=== PATIENT | male | born 1955 | race Caucasian/White ===

== ENCOUNTER 2021-10-01 12:48 | Outpatient (CLI) | payer MEDICARE, MEDICAID, SELFPAY | END 2021-10-01 23:59 | disposition home or self-care (01) | PROVIDERS: PCP Family Medicine; Referring Provider Surgery; Visit Provider Surgery | DX: Z01.818 Encounter for other preprocedural examination (principal); N18.6 End stage renal disease | CPT/HCPCS: 93985 ==

== ENCOUNTER 2021-11-28 12:14 | Emergency (ER) | payer MEDICARE, SELFPAY ==
[2021-11-28 12:15] VITALS: BP 88/72; PULSE 137; RESP 18; TEMP 36.1; O2SAT 98; BMI 26.9
[2021-11-28 12:42] VITALS: BP 96/82; PULSE 133; RESP 24; O2SAT 98
[2021-11-28 12:45] VITALS: BP 108/83; PULSE 133; RESP 18; O2SAT 99
--- NOTE | 2021-11-28 13:02 | RAD_ITS ---
STUDY: X-RAY CHEST REASON FOR EXAM: Male, 66 years old. Chest pain TECHNIQUE: Single AP portable view of the chest. COMPARISON: None. FINDINGS: A right-sided double-lumen catheter is seen with the tip in the right atrium. EKG electrodes are seen. Minimal increased markings at the right lung base suggestive of linear atelectasis and/or scarring. There is no demonstrated pleural abnormality. Normal size heart. Normal mediastinum and didier. Normal visualized pulmonary arteries. There is atherosclerotic tortuosity of the aortic arch and descending thoracic aorta. Normal visualized thoracic spine. Normal visualized ribs, clavicles, and shoulders. There is no demonstrated abnormality of the visualized soft tissue structures of the upper abdomen. RAD/Chest 1 View (Portable) IMPRESSION: Minimal increased markings at the right lung base suggestive of either linear atelectasis and/or scarring. Electronically Signed: Karlo Marley MD at 13:36 EDT ,
[2021-11-28 13:07] LABS: Absolute Lymphocyte Count 2.12 X10^3/uL (0.83-4.51); Absolute Neutrophil Count 7.6 X10^3/uL (2.0-7.7); Basophil# 0.04 X10^3/uL; Basophil% 0.4 % (0-1); Eosinophil# 0.06 X10^3/uL; Eosinophils% 0.6 % (0-5); Hematocrit 39.6 % (40-54); Hemoglobin 12.3 g/dL (13.0-16.5); Lymphocyte # 2.12 X10^3/ul (0.83-4.51); Lymphocyte % 19.8 % (19-41); Mean Corp Hgb Conc 31.1 g/dL (32-36); Mean Corpuscular Hgb 32.2 pg (27.0-32.0); Mean Corpuscular Volume 103.7 fL (80-94); Mean Platelet Vol. 10.3 fl (6.2-12.0); Monocyte# 0.88 X10^3/uL; Monocyte% 8.2 % (0-10); NRBC Flagged by Analyzer 0 % (0-5); Neutrophil % 70.7 % (47-70); Platelet Count 343 K/mm3 (150-450); RBC Distribution Width CV 16.7 % (11.6-14.6); Red Blood Count 3.82 M/mm3 (4.6-6.2); White Blood Count 10.7 K/mm3 (4.4-11.0)
[2021-11-28 13:30] VITALS: BP 99/80; PULSE 134; RESP 17; O2SAT 96
[2021-11-28 13:35] LABS: Anion Gap 6 (5-15); BUN 36 mg/dL (7-18); BUN/Creat Ratio 8.1 RATIO (10-20); Calcium,Total 9.4 mg/dL (8.5-10.1); Chloride 102 mmol/L (98-107); Creatinine, Serum 4.46 mg/dL (0.70-1.30); EST Glomerular Filtration Rate 14 mL/min (>60); Est Glom Filt Rate - Afr Amer 17 mL/min (>60); Estimated Creatinine Clearance 17.35 ml/min; Glucose 110 mg/dL (74-106); Sodium Level 139 mmol/L (136-145); Troponin-I HS (w/2H Reflex) 13 pg/mL (3.0-78.0)
[2021-11-28 14:15] VITALS: BP 113/85; PULSE 133; RESP 20; O2SAT 96
[2021-11-28 15:04] LABS: Reflex Troponin-HS? (from REC) Y
--- NOTE | 2021-11-28 15:22 | EDS_ITS ---
HPI History of Present Illness Chief Complaint: General Illness Narrative Narrative: Patient presenting with tachycardia. He does not have any symptoms. He states maybe his heart racing a little bit. He denies chest pain or shortness of breath. No fever or chills. Patient has been doing dialysis. And has not missed any. He was sent here because his heart rate is been fast for weeks. He has a history of a flutter in the past. He is anticoagulated on Xarelto and is on Eliquis and aspirin daily. 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 End stage renal disease Essential hypertension History of renal dialysis History of renal disease Hyperlipidemia Hypertension Sensory disorder Smoker Thromboembolism Walker as ambulation aid Home Medications aspirin 81 mg tablet,delayed release (Adult Aspirin Regimen) 81 mg PO DAILY 10/18/21 [History Last Taken 11/25/21] calcium acetate 667 mg tablet 667 mg PO ONCE 10/18/21 [History Last Taken Unknown] lisinopril 30 mg tablet 30 mg PO DAILY 10/18/21 [History Last Taken 11/28/21] pantoprazole 40 mg tablet,delayed release 40 mg PO DAILY 10/18/21 [History Last Taken 11/28/21] clopidogrel 75 mg tablet 75 mg PO DAILY 11/06/21 [History Last Taken 11/25/21] rivaroxaban 10 mg tablet (Xarelto) 10 mg PO DAILY 11/06/21 [History Last Taken 11/25/21] atorvastatin 20 mg tablet 20 mg PO DAILY 11/20/21 [History Last Taken Unknown] metoprolol succinate 25 mg tablet,extended release 24 hr 25 mg PO DAILY 11/20/21 [History Last Taken 11/28/21] amiodarone 200 mg tablet 200 mg PO DAILY #30 tabs 11/28/21 [Rx Last Taken U nknown] Allergy/AdvReac Type Severity Reaction Status Date / Time No Known Allergies Allergy Verified 11/28/21 12:15 Social History (Updated 10/18/21 @ 09:18 by Ronel Gong) Smoking Status: Current every day smoker tobacco type: cigarettes alcohol intake: former substance use type: does not use ROS ROS ED Constitutional Constitutional ED: Denies chills or fever(s) Eyes Eyes: Denies change in vision or diplopia ENT ENT ED: Denies rhinorrhea or sore throat Cardiovascular Cardiovascular: Reports racing heartbeat; Denies chest pain Respiratory/Chest Respiratory/Chest: Denies cough or dyspnea Gastrointestinal Gastrointestinal: Denies abdominal pain or constipation Genitourinary Genitourinary ED: Denies dysuria or hematuria Musculoskeletal Musculoskeletal: Denies arthralgias or back pain Integumentary Denies abscess or Abrasions Neurologic Neurologic: Denies headache(s) or paresthesias Psychiatric Psychiatric: Denies anxiety or depression EXAM Physical Exam Const Vital Signs: 11/28/21 12:15 11/28/21 12:42 11/28/21 12:42 Temperature 97 F L Temperature Source Temporal Pulse Rate 137 H 133 H Respiratory Rate 18 24 H Respiratory Effort Normal Non-Labored Respiratory Pattern Normal Blood Pressure 88/72 L 96/82 H Blood Pressure Mean 77 86 Pulse Ox 98 98 Oxygen Delivery Method Room Air Room Air 11/28/21 12:45 11/28/21 13:09 11/28/21 13:30 Temperature Temperature Source Pulse Rate 133 H 134 H Respiratory Rate 18 17 Respiratory Effort Respiratory Pattern Blood Pressure 108/83 H 99/80 Blood Pressure Mean 91 86 Pulse Ox 99 96 Oxygen Delivery Method Room Air Room Air Room Air 11/28/21 14:15 Temperature Temperature Source Pulse Rate 133 H Respiratory Rate 20 H Respiratory Effort Respiratory Pattern Blood Pressure 113/85 H Blood Pressure Mean 94 Pulse Ox 96 Oxygen Delivery Method Positive well nourished General Appearance ED: NAD; Negative for pallor HEENT Reports moist mucous membranes Eyes PERRL and EOMs intact bilaterally General Eye ED: Negative for pale conjunctiva or scleral icterus Chest Wall inspection of chest normal Resp normal respiratory effort and clear to auscultation bilaterally Auscultation: Negative for rales, rhonchi or wheezes Cardio regular rhythm Rate: tachycardic GI normal to inspection, nondistended, normoactive bowel sounds Extremity normal to inspection Neuro oriented x3 and CN's II-XII intact bilaterally Sensorium / Orientation: alert Psych mental status grossly normal Skin no rashes or lesions noted and no wounds General Skin Exam: Negative for jaundice or pallor MDM MDM MDM Narrative Medical decision making narrative: Patient sent to the ED for tachycardia which he has had for weeks now. He has a history of a flutter as well. Patient is anticoagulated on Xarelto and also takes 81 mg of aspirin daily and 75 mg of Plavix. He is not having any chest pain. He does not feel short of breath. He does not feel ill. Patient has been going to dialysis regularly. EKG obtained today shows a flutter at a ventricular rate of 133 bpm. This is similar to his prehospital EKG performed by medical history Dr. Lam who sent him here for this. His blood pressure was initially read as 88/72 but on reevaluation is 113/85. He is not having any symptoms with low blood pressure. CBC was obtained and his white blood cell count is 10.7, hemoglobin stable at 12.3. Platelets are normal at 343. Creatinine is at baseline for end-stage renal disease on dialysis. His potassium was a little bit high at 6.0. I spoke with Dr. Cruz who is on-call for cardiology. He recommended giving him older own IV and then when he slows down to give him 200 mg of amiodarone daily. The patient was given 150 mg of amiodarone IV and then his IV infiltrated. He is refusing another IV to be placed. He states its been like this for weeks and he does not want to stay here any longer. His heart rate is still around 130. After a long discussion with him he still refuses. I will give prescription for amiodarone. I recommended that he come back if he has any new or worsening symptoms. Impression: 1. A flutter 2. Hypotension Lab Data Attestation: I reviewed the patient's lab results. Labs: Laboratory Results - last 24 hr 11/28/21 11/28/21 12:30 12:30 WBC 10.7 RBC 3.82 L Hgb 12.3 L Hct 39.6 L MCV 103.7 H MCH 32.2 H MCHC 31.1 L RDW Std Deviation 62.0 H RDW Coeff of Mere 16.7 H Plt Count 343 MPV 10.3 Immature Gran % (Auto) 0.300 Neut % (Auto) 70.7 H Lymph % (Auto) 19.8 Rincon % (Auto) 8.2 Eos % (Auto) 0.6 Baso % (Auto) 0.4 Absolute Neuts (auto) 7.6 Absolute Lymphs (auto) 2.12 Nucleated RBC % 0 Sodium 139 Potassium 6.0 H* Chloride 102 Carbon Dioxide 31.0 Anion Gap 6 BUN 36 H Creatinine 4.46 H Estim Creat Clear Calc 17.35 Est GFR (MDRD) Af Amer 17 L Est GFR (MDRD) Non-Af 14 L BUN/Creatinine Ratio 8.1 L Glucose 110 H Calcium 9.4 Troponin I High Sens 13 Radiography Diagnostic Testing: Clinical Impression(s) from Imaging Studies Chest X-Ray 11/28/21 13:02 IMPRESSION: Minimal increased markings at the right lung base suggestive of either linear atelectasis and/or scarring. Electronically Signed: Karlo Marley MD at 13:36 EDT , Discharge Plan Triage Chief Complaint: General Illness ED Provider: J Carlos Rivera Dx/Rx/DC Orders Instructions: ED Atrial Flutter Prescriptions: New amiodarone 200 mg tablet 200 mg PO DAILY Qty: 30 0RF No Action calcium acetate 667 mg tablet 667 mg PO ONCE lisinopril 30 mg tablet 30 mg PO DAILY aspirin [Adult Aspirin Regimen] 81 mg tablet,delayed release (DR/EC) 81 mg PO DAILY pantoprazole 40 mg tablet,delayed release (DR/EC) 40 mg PO DAILY clopidogrel 75 mg tablet 75 mg PO DAILY Label Comments: TAKE 1 TABLET BY MOUTH EVERY DAY Xarelto 10 mg tablet 10 mg PO DAILY Label Comments: TAKE 1 TABLET BY MOUTH EVERY DAY atorvastatin 20 mg tablet 20 mg PO DAILY Label Comments: TAKE 1 TABLET BY MOUTH EVERY DAY metoprolol succinate 25 mg tablet extended release 24 hr 25 mg PO DAILY Label Comments: Take 1 tablet by mouth once a day Primary Care Provider: Ramona Khan Referrals: Román Dick MD [Med Staff - Active Staff] - As soon as possible Ramona Khan DO [Primary Care Provider] - Disposition Disposition: Home, Self Care
[2021-11-28 15:36] VITALS: BP 111/79; PULSE 128; RESP 18; O2SAT 98
== END 2021-11-28 15:37 | disposition home or self-care (01) ==
PROVIDERS: Emergency Provider Student in an Organized Health Care Education/Training Program; PCP Family Medicine; Visit Provider Student in an Organized Health Care Education/Training Program
DX: I48.92 Unspecified atrial flutter (principal); Z99.2 Dependence on renal dialysis; J44.9 Chronic obstructive pulmonary disease, unspecified; E13.22 Other specified diabetes mellitus with diabetic chronic kidney disease; N18.6 End stage renal disease; I12.0 Hypertensive chronic kidney disease with stage 5 chronic kidney disease or end stage renal disease; I95.9 Hypotension, unspecified; E78.5 Hyperlipidemia, unspecified; F17.210 Nicotine dependence, cigarettes, uncomplicated; Z79.01 Long term (current) use of anticoagulants; Z79.02 Long term (current) use of antithrombotics/antiplatelets; Z79.82 Long term (current) use of aspirin; Z79.899 Other long term (current) drug therapy; Z86.73 Personal history of transient ischemic attack (TIA), and cerebral infarction without residual deficits
CPT/HCPCS: 96365; 71045; 80048; 82962; 84484; 85025; 85027; 93005; J7040; A4216

== ENCOUNTER → 2021-11-28 | Outpatient (CLI) | payer MEDICARE, MEDICAID, SELFPAY ==
--- NOTE | 2021-11-26 10:34 | EKG12_ITS ---
Test Reason : PRE OP Blood Pressure : / mmHG Vent. Rate : 128 BPM Atrial Rate : 128 BPM P-R Int : 146 ms QRS Dur : 180 ms QT Int : 308 ms P-R-T Axes : 000 019 091 degrees QTc Int : 449 ms Atrial Flutter Abnormal ECG Confirmed by UMU BLANCHARD, JOHN ([id number]), assistant editor JOHN RIDDLE ([id number]) on 11/27/2021 9:30:41 AM Referred By: Sachin Lam Confirmed By:JOHN SANZ MD
[2021-11-28 11:11] VITALS: BP 117/39; PULSE 120; RESP 18; TEMP 36.7; O2SAT 99; BMI 26.7
[2021-11-28 11:35] LABS: Hematocrit 40.1 % (40-54); Hemoglobin 12.3 g/dL (13.0-16.5); Mean Corp Hgb Conc 30.7 g/dL (32-36); Mean Corpuscular Hgb 31.7 pg (27.0-32.0); Mean Corpuscular Volume 103.4 fL (80-94); Mean Platelet Vol. 10.3 fl (6.2-12.0); Platelet Count 380 K/mm3 (150-450); RBC Distribution Width CV 16.6 % (11.6-14.6); RBC Distribution Width SD 61.1 fl (35.1-43.9); Red Blood Count 3.88 M/mm3 (4.6-6.2); White Blood Count 11.7 K/mm3 (4.4-11.0)
[2021-11-28 11:46] LABS: Anion Gap 8 (5-15); BUN 35 mg/dL (7-18); BUN/Creat Ratio 7.7 RATIO (10-20); Calcium,Total 9.7 mg/dL (8.5-10.1); Chloride 101 mmol/L (98-107); Creatinine, Serum 4.52 mg/dL (0.70-1.30); EST Glomerular Filtration Rate 14 mL/min (>60); Est Glom Filt Rate - Afr Amer 17 mL/min (>60); Estimated Creatinine Clearance 17.12 ml/min; Glucose 129 mg/dL (74-106); Sodium Level 139 mmol/L (136-145)
[2021-11-28 11:55] LABS: Bedside Glucose 126 mg/dL (74-106)
== END | disposition home or self-care (01) ==
LOC: AC 11-29 06:30 → PAT 12-10 12:40
PROVIDERS: PCP Family Medicine; Referring Provider Surgery; Visit Provider Surgery
DX: Z01.818 Encounter for other preprocedural examination (principal); Z99.2 Dependence on renal dialysis; J44.9 Chronic obstructive pulmonary disease, unspecified; E13.22 Other specified diabetes mellitus with diabetic chronic kidney disease; N18.6 End stage renal disease; I12.0 Hypertensive chronic kidney disease with stage 5 chronic kidney disease or end stage renal disease; I48.92 Unspecified atrial flutter; I95.9 Hypotension, unspecified; E78.5 Hyperlipidemia, unspecified; F17.210 Nicotine dependence, cigarettes, uncomplicated; Z79.01 Long term (current) use of anticoagulants; Z79.02 Long term (current) use of antithrombotics/antiplatelets; Z79.82 Long term (current) use of aspirin; Z79.899 Other long term (current) drug therapy; Z86.73 Personal history of transient ischemic attack (TIA), and cerebral infarction without residual deficits
CPT/HCPCS: 71045; 80048; 82962; 84484; 85025; 85027; 93005; 96365; 99284; J7040; A4216; J2405

== ENCOUNTER → 2021-12-11 | Outpatient (CLI) | payer MEDICARE, SELFPAY ==
[2021-12-11 13:00] LABS: Potassium 6.1 mmol/L (3.5-5.1)
== END | disposition home or self-care (01) ==
LOC: LABSPEC 12:32
PROVIDERS: PCP Family Medicine; Referring Provider Internal Medicine Nephrology
DX: E87.5 Hyperkalemia (principal)
CPT/HCPCS: 84132

== ENCOUNTER → 2022-01-28 | Outpatient (CLI) | payer MEDICARE, MEDICAID, SELFPAY ==
--- NOTE | 2022-01-28 08:03 | ECHOCS_ITS ---
Reason For Study: Afib/Flutter Procedure This was a 2D Doppler, Color Flow transthoracic echocardiogram. The study was technically difficult. Contrast injection was performed. Exam performed in department. Left Ventricle Normal size and thickness. Mild to moderate segmental systolic dysfunction (see wall motion). The left ventricular ejection fraction is 45 %. Diastolic function is indeterminate. Severe anterior septal, inferior hypokinesis. Right Ventricle Normal right ventricle. Atria The left atrium is moderately enlarged. Normal right atrium. Mitral Valve The mitral valve is structurally normal. No prolapse or stenosis seen. Tricuspid Valve Normal tricuspid valve. Aortic Valve Mild aortic stenosis. Pulmonic Valve The pulmonic valve is not well visualized. Great Vessels Normal sized aortic root. Pericardium/Pleural No pericardial effusion. Medication 20 gauge I.V. with prn adaptor inserted into left arm. Diluted definity 3ml given slow IV push to enhance endocardial definition. Performed a rapid injection of agitated mix of 9 cc saline and 1cc air to assess for atrial septal defect. MMode/2D Measurements & Calculations LVIDd: 4.6 cm IVSd: 1.4 cm LVOT diam: 2.0 cm LVIDs: 3.1 cm LVPWd: 1.6 cm RVDd: 4.3 cm FS: 31.5 % LVOT area: 3.1 cm2 Ao root diam: 3.6 cm LAV(MOD-bp): 97.2 ml LA A4 area: 26.1 cm2 LAV(MOD-bp) Indexed: 46.4 ml/m2 LAV(MOD-sp2): 101.1 ml LAV(MOD-sp4): 78.2 ml RA A4 area: 17.6 cm2 Time Measurements MV dec time: 0.11 sec Doppler Measurements & Calculations MV E max azael: 34.1 cm/sec Lat Peak E' Azael: 3.4 cm/sec Med Peak E' Azael: 4.8 cm/sec MV A max azael: 132.6 cm/sec E/E' lat: 9.9 E/E' med: 7.0 MV E/A: 0.26 MV V2 max: 135.2 cm/sec MV P1/2t max azael: 45.9 cm/sec Ao V2 max: 239.2 cm/sec MV max P.3 mmHg MV P1/2t: 64.7 msec Ao max P.9 mmHg MV V2 mean: 67.1 cm/sec MV dec slope: 207.7 cm/sec2 Ao V2 mean: 156.7 cm/sec MV mean P.4 mmHg Ao mean P.6 mmHg MV V2 VTI: 19.3 cm MVA(P1/2t): 3.4 cm2 Ao V2 VTI: 42.9 cm MVA(VTI): 2.6 cm2 AV (velocity ratio): 0.39 ASHLEY(I,D): 1.2 cm2 ASHLEY(V,D): 1.2 cm2 LV V1 max: 90.9 cm/sec SV(LVOT): 51.1 ml PA V2 max: 89.2 cm/sec LV V1 max P.3 mmHg LV V1 mean P.6 mmHg LV V1 mean: 58.9 cm/sec LV V1 VTI: 16.6 cm ECHO/Echo Complete W/ Contrast Interpretation Summary Mild to moderate segmental systolic dysfunction (see wall motion). The left ventricular ejection fraction is 45 %. Diastolic function is indeterminate. Severe anterior septal, inferior hypokinesis. The left atrium is moderately enlarged. Mild aortic stenosis. Ordering Physician: Silvia Cruz Referring Physician: Ramona Khan Performed By: Solis Jeff RCS
--- NOTE | 2022-01-30 10:00 | STRESSREP_ITS ---
Stress Test Report Date: 01/30/2022 Procedure: Pharmacologic stress nuclear imaging study Indications: Arrhythmia Consent: Per the patient Procedure: The patient underwent pharmacologic (Regadenoson 0.4mg ) evaluation with a peak heart rate of 126 beats per minute (81%predicted maximal heart rate) and a peak blood pressure of 120/81 mmHg. The baseline ECG demonstrated atrial flutter. The peak pharmacologic ECG demonstrated no ischemic change. [There was no complaint of chest discomfort during pharmacologic infusion or recovery]. The patient was injected with 14.0 millicuries of technetium 99m Cardiolite and subsequently rest SPECT Cardiolite nuclear imaging was obtained in the horizontal long, vertical long, and short axis views. The patient underwent pharmacologic (Regadenoson) evaluation. The patient was injected with 44 millicuries of technetium 99m Cardiolite and subsequently stress SPECT Cardiolite nuclear imaging was obtained in the horizontal long, vertical long, and short axis views. A gated Cardiolite study at peak stress was obtained. The examination was stopped secondary to completion of protocol. Rest and stress SPECT Cardiolite nuclear imaging status post realignment, normalization, and attenuation correction demonstrate moderately reduced perfusion at rest. This slightly worsens post Lexiscan infusion. Suggestive of previous nontransmural infarct with kelvin-infarct ischemia.The reported LVEF is 46%. Impression: 1. Pharmacologic (Regadenoson) evaluation 2. Peak pharmacologic ECG with []. 3. Baseline atrial flutter. Nondiagnostic post Lexiscan EKG secondary to baseline abnormalities.. 5. Rest and stress SPECT Cardiolite nuclear imaging shows possible nontransmural infarct of the inferior wall. Mild kelvin-infarct ischemia noted. Possible lateral ischemia.. 6. The gated Cardiolite study reports an LVEF of 46%. This note was generated with [employer] software. It may contain incorrect words, spelling, and punctuation that were not noted in checking the note before signing.
== END | disposition home or self-care (01) ==
PROVIDERS: PCP Family Medicine; Referring Provider Internal Medicine Cardiovascular Disease; Visit Provider Internal Medicine Cardiovascular Disease
DX: I48.92 Unspecified atrial flutter (principal); I48.91 Unspecified atrial fibrillation; R94.31 Abnormal electrocardiogram [ECG] [EKG]
CPT/HCPCS: 78452; 93017; 93306; A9500; Q9957; A4216; C8929; J2785

== ENCOUNTER → 2022-02-12 | Outpatient (CLI) | payer MEDICARE, MEDICAID, SELFPAY ==
[2022-02-12 12:39] LABS: Hemoglobin 7.9 g/dL (13.0-16.5)
[2022-02-12 12:50] LABS: Potassium 6.6 mmol/L (3.5-5.1)
== END | disposition home or self-care (01) ==
LOC: LABSPEC 12:20
PROVIDERS: PCP Family Medicine; Visit Provider Internal Medicine
DX: N18.6 End stage renal disease (principal)
CPT/HCPCS: 84132; 85018

== ENCOUNTER 2022-03-20 09:05 | Day surgery (SDC) | payer MEDICARE, MEDICAID, SELFPAY ==
--- NOTE | 2022-03-13 14:09 | EKG12_ITS ---
Test Reason : PREOP Blood Pressure : / mmHG Vent. Rate : 117 BPM Atrial Rate : 234 BPM P-R Int : 000 ms QRS Dur : 086 ms QT Int : 348 ms P-R-T Axes : 266 016 174 degrees QTc Int : [address] & T wave abnormality, consider inferolateral ischemia Abnormal ECG Confirmed by IDANIA BLANCHARD, HARDEEP ([id number]), newspaper managing editor JOHN RIDDLE ([id number]) on 03/17/2022 9:50:20 AM Referred By: Sachin Lam Confirmed By:JESS EMERSON MD
[2022-03-13 14:51] LABS: Hematocrit 32.7 % (40-54); Hemoglobin 9.9 g/dL (13.0-16.5); Mean Corp Hgb Conc 30.3 g/dL (32-36); Mean Corpuscular Hgb 31.7 pg (27.0-32.0); Mean Corpuscular Volume 104.8 fL (80-94); Mean Platelet Vol. 9.6 fl (6.2-12.0); Platelet Count 372 K/mm3 (150-450); RBC Distribution Width CV 15.9 % (11.6-14.6); RBC Distribution Width SD 59.6 fl (35.1-43.9); Red Blood Count 3.12 M/mm3 (4.6-6.2); White Blood Count 9.8 K/mm3 (4.4-11.0)
[2022-03-13 15:25] LABS: Anion Gap 7 (5-15); BUN 36 mg/dL (7-18); BUN/Creat Ratio 8.5 RATIO (10-20); Calcium,Total 8.2 mg/dL (8.5-10.1); Chloride 97 mmol/L (98-107); Creatinine, Serum 4.25 mg/dL (0.70-1.30); EST Glomerular Filtration Rate 15 mL/min (>60); Est Glom Filt Rate - Afr Amer 18 mL/min (>60); Glucose 104 mg/dL (74-106); Potassium 5.2 mmol/L (3.5-5.1); Sodium Level 136 mmol/L (136-145)
[2022-03-20 09:46] VITALS: BP 124/87; PULSE 118; RESP 16; TEMP 36.8; O2SAT 94; BMI 26.4
[2022-03-20] MEDS: 0.9% Normal Saline 1,000 ML 15 ML IV (10:08)
--- NOTE | 2022-03-20 10:39 | HP.PCM_ITS ---
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 Required: No Is patient in pain?: No Allergies No Known Allergies Allergy (Verified 03/05/22 10:08) Medications aspirin 81 mg tablet,delayed release (Adult Aspirin Regimen) 81 mg PO DAILY 10/18/21 [History Confirmed 03/05/22] pantoprazole 40 mg tablet,delayed release 40 mg PO DAILY 10/18/21 [History Confirmed 03/05/22] rivaroxaban 10 mg tablet (Xarelto) 10 mg PO DAILY 11/06/21 [History Confirmed 03/05/22] atorvastatin 20 mg tablet 20 mg PO DAILY 11/20/21 [History Confirmed 03/05/22] calcium acetate 667 mg tablet 1,334 mg PO TID 12/04/21 [History Confirmed 03/05/22] diltiazem HCl 120 mg capsule,extended release 24 hr 120 mg PO BID #180 caps 12/19/21 [Rx Confirmed 03/05/22] clopidogrel 75 mg tablet 75 mg PO DAILY 01/30/22 [History Confirmed 03/05/22] potassium chloride 20 mEq tablet,extended release 20 meq PO BID 01/30/22 [History Confirmed 03/05/22] metoprolol tartrate 100 mg tablet 100 mg PO BID #180 tabs 02/18/22 [Rx Confirmed 03/05/22] PFSH Medical History?(Updated 03/05/22 @ 10:06 by Sylvia Alcantar) Atrial flutter Bite from insect COPD (chronic obstructive pulmonary disease) CVA (cerebral vascular accident) Diabetes 1.5, 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 Smoking Status:? Current every day smoker tobacco type: cigarettes alcohol intake:? former substance use type:? does not use caffeine:? No HPI HPI Surgical H&P: Yes HPI: Patient is a 66 y/o M I am following for an update history and physical for an elective arteriovenous fistula creation. Patient notes he has had his peritoneal dialysis catheters removed approximately [address] Mccoy at [facility]. Patient tolerated the procedure well. Patient is currently on dialysis via tunneled dialysis catheters on M,W and F. Patient denies any recent illnesses. Patient denies any complications or side effects from anesthesia. Patient's previous history per Dr. Lam: JOHN SAHU, is a 65 M who presents to the office today for surgical consultation regarding creation of a arteriovenous fistula and removal of peritoneal dialysis catheters.? The patient was initially referred on August 19, 2021.? He had vein mapping scheduled on August 23, 2021 for which she failed to appear.? He was scheduled to see me on October 03, 2021 and failed to show.? The patient is referred by Dr. Montserrat Rios and written, my surgical consult recommendations will return to her.? It appears that the patient was hospitalized at [facility] July 18, 2021.? Had emphysematous cholecystitis and was on peritoneal dialysis.? Had a percutaneous cholecystostomy tube placed at that time and also had a right internal jugular tunneled dialysis catheter placed.? There is additional comment that on July 21, 2021 at the same hospital because of atrial flutter the patient had DC cardioversion performed. ?On October 01, 2021 at the [facility] the patient had bilateral upper extremity vein mapping.? Bilateral forearm cephalic veins are small.? Left upper arm cephalic vein appears to be slightly larger than the right upper arm cephalic vein.? Bilateral upper arm basilic veins appear to be adequate The patient appears in a wheelchair today.? He has multiple areas of skin excoriation bilateral upper arms and chest.? He has a tunneled right IJ catheter with the dressing nearly ripped off even though its only been there for a day and a half from his previous dialysis.? His peritoneal dialysis catheter tubing is hanging down to the ground.? He has a heavy odor of tobacco From his cholecystostomy tube apparently that got pulled out in his wheelchair.? He states he is no additional appointments at [facility] for his gallbladder issue. ROS General General: No weight change, appetite, fatigue, colon cancer, breast cancer or weakness HEENT HEENT: No difficulty swallowing, eye injury, eye surgery, swollen glands or hoarseness Endo Endocrine: No thyroid disease, diabetes mellitus, thyroid cancer, Hair loss, heat intolerance or cold intolerance Skin Skin: No rash or changing moles Breast Breast: No left breast lump, right breast lump, nipple discharge, breast pain, abnormal mammogram, abnormal US or breast enlargement Musc Musculoskeletal: No back problems, arthritis, rheumatoid arthritis, gout or joint pain Cardio Cardiovascular: Yes high blood pressure; No murmur, pacemaker, heart disease, atrial fibrillation, heart attack, heart stent, palpitations, shortness of breat with exertion or chest pain Psych Psychiatric: No depression, anxiety or hearing voices Resp Respiratory: Yes shortness of breath, No sleep apnea, Yes cough, Yes COPD, No asthma, No emphysema and No wheezing Gastro Gastrointestinal: No abdominal pain, No nausea or vomiting, No diarrhea, No constipation, No blood in stool, No acid reflux, Yes hemorrhoids, No ulcers, No gallbladder problem and No black,tarry stools Aravind Hematologic: Yes blood thinners, No blood disorders, No bleeding, No anemia and No blood clots Additional Details: Eliquis Neuro Neurologic: No system reviewed and no additional complaints, except as documented, No as per HPI, No abnormal gait, No abnormal hearing, No abnormal movements, No abnormal speech, No behavioral changes, No burning sensations, No confusion, No convulsions, No disequilibrium, No dizziness, No localized weakness, No frequent falls, No headache(s), No lack of coordination, No loss of vision, No memory loss, No numbness, No other visual disturbances, No radicular pain, No restless legs, No sensory deficit, No syncope, No tingling, No tremor(s), No weakness and No other Exam Const General: cooperative, comfortable and no acute distress [facility] Head: normal to inspection Eyes General: appearance normal, both eyes and all related structures Neck Neck: normal visual inspection Neck mass: No Chest Other: Right IJ port in place Resp Effort & Inspection: normal respiratory effort Auscultation: wheezes Cardio Rate: regular rate Rhythm: regular rhythm GI Inspection: normal to inspection Palpation: soft Auscultation: normal bowel sounds Musc Cervical Spine: normal cervical lordosis Neuro General: no focal motor deficits and CN's II-XI intact bilaterally Assessment and Plan Assessment and Plan (1) End stage renal disease: ?Status:?Acute ?Plan: Dr. Lam will plan to perform a left upper extremity brachial to cephalic arteriovenous hemodialysis fistula creation. Procedure details, risks and benefits have been explained. Patient has had the opportunity to ask and have questions answered. Patient verbally understands and agrees with the plan. Patient will hold his Plavix for 3 days and Xarelto for 2 days It has become apparent that the patient got confused with his medications and took his Plavix yesterday. He complains of fleabites the left arm but that episode occurred 4 months ago. It appears that the wounds are secondary to self excoriation due to scratching due to pruritus related to his renal failure. Fortunately the left antecubital space is clean. He has had an opportunity to ask and have questions answered. We will pursue fistula creation secondary to the significant difficulty that we have had in scheduling and getting compliance from this patient. Sachin Lam M.D., F.A.C.S.
--- NOTE | 2022-03-20 10:40 | DCINST_ITS ---
Discharge Instructions Procedure Fistula Diet Discharge Diet: Renal Diet Activity Discharge Activity: May Not Drive (for 2-3 days or while taking narcotic pain medications.), May Shower and May Take a Tub Bath (in 5 days.) Lifting Restrictions: 5 pounds Keep extremity elevated above heart level: - (Keep arm elevated above the heart level for 3 days.) Dressing / Incision Call your doctor if your incision/area has: Continuous Slow Oozing, Sudden Increased Bleeding (apply pressure and call your doctor.), Increased Pain/ Swelling, Increased Redness and Foul Smelling Discharge Call your doctor if you observe: Fever of 101 or Higher Suture Line Care: Avoid Pulling/Pushing and Avoid Pinching/Bending Cleanse incision/area with: Keep Dressing Clean & Dry Additional Dressing/Incision Instructions:: Change or remove dressing in one day. May protect with a gauze bandaid. Follow Up Care Please Follow Up With: Sachin Lam MD When: Call [phone] to make an appointment for suture removal and follow up in 1 week. Test Results: Test results from this visit will be discussed in further detail at your follow- up appointment, if applicable. Discharge Plan Admission Attending Provider: Sachin Lam Primary Care Provider: Ramona Khan Discharge Orders/Prescriptions Prescriptions: No Action aspirin [Adult Aspirin Regimen] 81 mg tablet,delayed release (DR/EC) 81 mg PO DAILY pantoprazole 40 mg tablet,delayed release (DR/EC) 40 mg PO DAILY diltiazem HCl 120 mg capsule,extended release 24hr 120 mg PO BID Qty: 180 3RF potassium chloride 20 mEq tablet extended release 20 meq PO BID Label Comments: TAKE ONE TABLET BY MOUTH TWICE DAILY @ 9am-5pm (VIAL) clopidogrel 75 mg tablet 75 mg PO DAILY Label Comments: TAKE ONE TABLET BY MOUTH DAILY AT 9AM Xarelto 10 mg tablet 10 mg PO DAILY Label Comments: TAKE 1 TABLET BY MOUTH EVERY DAY metoprolol tartrate 100 mg tablet 100 mg PO BID Qty: 180 3RF Referrals / Follow Up: Ramona Khan DO [Primary Care Provider] - Disposition Disposition (needs filled in before D/C Order can be placed): Home, Self Care
[2022-03-20] MEDS: Cefazolin 2 GM in 0.9% Normal Saline 100 ML IV (11:45)
[2022-03-20] MEDS: Heparin Injection (Vial) 5,000 UNIT/ML VIAL 5000 UNIT (11:51)
[2022-03-20] MEDS: Bupivacaine Mpf 0.5% 30 ML VIAL (11:51)
[2022-03-20] MEDS: Lidocaine 1% (30 ml sdv) 30 ML Vial (11:51)
--- NOTE | 2022-03-20 12:59 | PCM.OPRPT ---
Report of Operation Date of Procedure: 03/20/22 Pre-Operative Diagnosis: Stage V chronic renal insufficiency Post-Operative Diagnosis: Same Surgery/Procedure Performed:: Left upper extremity brachial cephalic arteriovenous hemodialysis fistula creation Description of Surgical Findings:: Timeout informed consent was obtained. 66-year-old gentleman was taken to the operating placed upon the table initially underwent monitored anesthesia care but that was converted to general anesthesia with an LMA. Ancef 2 g were given intravenously. The left upper extremity was sterilely prepped and draped. 1% lidocaine 50-50 with 0.5% Marcaine was used as a local anesthetic and 22 cc was used. Ultrasound had been used to map the course of the left upper arm cephalic vein. Local was instilled. An oblique incision was made just proximal to the antecubital crease. Sharp and blunt dissection was used to dissect sac free the cephalic vein. It is notable that it seemed to be somewhat adherent likely from multiple percutaneous accesses. It was circumferentially dissected free and mobilized for several centimeters to allow for transposition to the brachial artery. Having fully mobilized it I then identified the brachial artery and got circumferential control. Where needed throughout this procedure hemostasis attained with hemoclips and electrocautery. The patient then received 8000 units of heparin intravenously. The vein was secured distally with a 3-0 Vicryl ligature. Peripheral vascular clamps were placed on the brachial artery and 11 blade was used to make an arteriotomy which was extended with Salazar scissors. A head venous to arterial anastomosis was created with a running 7-0 Prolene. Couple repair sutures of 7-0 Prolene was utilized. Hemostasis was intact. The hand was noted to be viable at the completion with Doppler signals. There was good pulse and thrill within the fistula. The wound was closed in layers with deep layers of interrupted 3-0 Vicryl and then a running subicular 4-0 Monocryl. Steri-Strips Telfa tape dressings applied. Sponge and instrument and needle counts were reported to the surgeon to be correct. Specimen none. Drains none. Blood loss minimal. The patient was taken to the recovery room in satisfactory addition without apparent complication. Sachin Lam M.D., F.A.C.S. Surgeon: Sachin Lam Type of Anesthesia: General Anesthesiologist: Jessie Jason
[2022-03-20 13:05] VITALS: BP 124/87; BP 134/85; PULSE 110; RESP 18; TEMP 36.3; O2SAT 96
[2022-03-20 13:15] VITALS: BP 104/80; BP 124/87; PULSE 111; RESP 18; O2SAT 98
[2022-03-20 13:30] VITALS: BP 108/87; BP 124/87; PULSE 110; RESP 18; O2SAT 93
[2022-03-20 13:46] VITALS: BP 124/87; BP 99/66; PULSE 111; RESP 18; TEMP 36.3; O2SAT 96
[2022-03-20 15:21] VITALS: BP 105/74; BP 124/87; PULSE 110; RESP 16; TEMP 36.6; O2SAT 94
== END 2022-03-20 15:33 | disposition home or self-care (01) ==
LOC: SDC 09:16 → AC 09:17
PROVIDERS: PCP Family Medicine; Referring Provider Surgery; Visit Provider Surgery
PROC: (CPT 36821; principal; 2022-03-20 11:25)
DX: I12.0 Hypertensive chronic kidney disease with stage 5 chronic kidney disease or end stage renal disease (principal); Z99.2 Dependence on renal dialysis; J44.9 Chronic obstructive pulmonary disease, unspecified; N18.6 End stage renal disease; I48.92 Unspecified atrial flutter; E78.5 Hyperlipidemia, unspecified; F17.210 Nicotine dependence, cigarettes, uncomplicated; Z79.01 Long term (current) use of anticoagulants; Z79.02 Long term (current) use of antithrombotics/antiplatelets; Z79.82 Long term (current) use of aspirin; Z86.73 Personal history of transient ischemic attack (TIA), and cerebral infarction without residual deficits
CPT/HCPCS: 36821; 01844; 36415; 80048; 85027; 93005; J7030; J2405

== ENCOUNTER 2022-04-02 12:26 | Inpatient (IN) | payer MEDICARE, MEDICAID, SELFPAY ==
[2022-04-02] VITALS (19 sets, daily range): BP systolic 0–124; BP diastolic 0–66; PULSE 55–92; RESP 15–24; TEMP 35.3–36.8; O2SAT 93–100; BMI 28.6; BMI 27.1
--- NOTE | 2022-04-02 12:41 | EKG12_ITS ---
Test Reason : LOW HR Blood Pressure : / mmHG Vent. Rate : 029 BPM Atrial Rate : 159 BPM P-R Int : 000 ms QRS Dur : 094 ms QT Int : 546 ms P-R-T Axes : 000 011 071 degrees QTc Int : 379 ms Atrial flutter with high grade AV block Confirmed by CHAZ BLANCHARD, ROMÁN ([id number]), newspaper copy editor JOHN RIDDLE ([id number]) on 04/04/2022 10:09:14 AM Referred By: Román iDck Confirmed By:ROMÁN DICK MD
--- NOTE | 2022-04-02 12:45 | EX.ED.DYSGE1 ---
HPI History of Present Illness Chief Complaint: Palpitations Informant: patient Narrative Narrative: 66-year-old male with significant medical history including end-stage renal disease on hemodialysis Thursday, Thursday and Thursday, atrial flutter on , cardiomyopathy, continued tobacco use and COPD. Patient was started on diltiazem 1/2 weeks ago. He states today he is feeling nauseous was seen as house and was sweating. When he went outside with the cold air he almost vomited. He went to dialysis for his normal dialysis session was found to be bradycardic with a heart rate in the 20s and fitzgerald so he was sent to ER via EMS. He had a full dialysis session on Thursday. He has no other complaints at this time. He denies feeling lightheaded, chest pain or any more shortness of breath than normal. Patient is a chronic cough from his COPD which is unchanged. No other complaint at this time [facility] Medical History (Updated 04/02/22 @ 17:[address] Rosana Faust, DO) Atrial flutter Cardiomyopathy Chronic anemia COPD (chronic obstructive pulmonary disease) CVA (cerebral vascular accident) Diabetes 1.5, managed as type 2 End stage renal disease Essential hypertension History of renal dialysis Hyperlipidemia Hypertension Sensory disorder Smoker Thromboembolism Walker as ambulation aid Home Medications aspirin 81 mg tablet,delayed release (Adult Aspirin Regimen) 81 mg PO DAILY 10/18/21 [History Last Taken 11/25/21] pantoprazole 40 mg tablet,delayed release 40 mg PO DAILY 10/18/21 [History Last Taken 03/20/22 05:30] rivaroxaban 10 mg tablet (Xarelto) 10 mg PO DAILY 11/06/21 [History Last Taken 03/16/22] diltiazem HCl 120 mg capsule,extended release 24 hr 120 mg PO BID #180 caps 12/19/21 [Rx Last Taken 03/20/22 05:30] clopidogrel 75 mg tablet 75 mg PO DAILY 01/30/22 [History Last Taken 03/19/22] potassium chloride 20 mEq tablet,extended release 20 meq PO BID 01/30/22 [History Last Taken Unknown] metoprolol tartrate 100 mg tablet 100 mg PO BID #180 tabs 02/18/22 [Rx Last Taken 03/20/22 05:30] atorvastatin 20 mg tablet 20 mg PO DAILY 02/08/23 [History Last Taken Unknown] Allergy/AdvReac Type Severity Reaction Status Date / Time No Known Allergies Allergy Verified 03/20/22 09:37 Family History Mother Heart disease Father Heart disease Surgical History History of ankle surgery Social History Smoking Status: Current every day smoker tobacco type: cigarettes alcohol intake: former substance use type: does not use caffeine: No ROS ROS ED Constitutional Constitutional ED: Reports sweats Cardiovascular Cardiovascular: Reports palpitations; Denies chest pain Respiratory/Chest Respiratory/Chest: Reports dyspnea Gastrointestinal Gastrointestinal: Reports nausea and vomiting Neurologic Neurologic: Reports weakness Hematologic/Lymphatic Hematologic/Lymphatic: Reports easy bleeding and easy bruising EXAM Physical Exam Const Vital Signs: 04/02/22 12:29 04/02/22 12:33 04/02/22 12:56 Temperature 95.5 F L Temperature Source Temporal Pulse Rate 55 L Respiratory Rate 24 H Blood Pressure 106/53 L Blood Pressure Mean 70 Pulse Ox 94 Oxygen Delivery Method Room Air Room Air Oxygen Flow Rate (L/min) 04/02/22 13:13 04/02/22 13:30 Temperature 97.2 F L Temperature Source Temporal Pulse Rate 60 Respiratory Rate 16 Blood Pressure 0/0 L Blood Pressure Mean Pulse Ox 93 Oxygen Delivery Method Room Air Non-Rebreather Oxygen Flow Rate (L/min) 15 Positive well nourished and well developed Constitutional Narrative: Chronically ill-appearing General Appearance ED: well developed HEENT Reports moist mucous membranes Eyes PERRL and EOMs intact bilaterally Neck supple Chest Wall inspection of chest normal Resp normal respiratory effort Cardio Rate: bradycardia GI normal to inspection, nondistended, normoactive bowel sounds Extremity General Extremety ED: Negative for edema General Extremity: Negative for edema Neuro oriented x3 Sensorium / Orientation: alert Motor Exam: general weakness Psych mental status grossly normal Skin Skin Narrative: Surgical incision of the left upper extremity that is healing MDM MDM MDM Narrative Medical decision making narrative: Patient presents to the emergency room via EMS for with cells like diaphoresis and bradycardia. EMS report independently reviewed and patient had a heart rate of 45 with a blood pressure of 120/50 and on repeat it was a heart rate of 49 with a blood pressure of 101/64. At dialysis patient had low blood pressure and low heart rate and was transferred to the ER. He did not have dialysis. Upon arrival patient is mentating and while he is bradycardic he has a normal blood pressure. Telemetry shows a heart rate around 55 however pulse is followed with a Doppler and patient has nontransmitted ectopic beats that the telemetry is picking up. His heart rate is actually half of what telemetry showing. EKG is obtained which either shows atrial flutter with significantly slowed ventricular response versus a third-degree heart block. I spoke with Dr. Dick, cardiology on-call, who will come down to evaluate the patient. Patient is ordered atropine for his bradycardia as well as calcium gluconate as hyperkalemia causing cardiac arrhythmias also on the differential. In addition diltiazem side effect as patient was just placed on this a week and a half ago could be the cause of patient's bradycardia. Shortly after orders were placed patient starts to feel more nauseous and then becomes unresponsive. Rhythm shows an agonal rhythm. Chest compressions are started immediately and patient almost has immediate return of consciousness. Shortly after chest compressions were stopped he becomes unresponsive and has an agonal rhythm again. Chest compressions are continued and he is 1 mg of IV epinephrine. Was started transcutaneous pacing the patient's and classification inspector at the bedside. They will take him for a temporary pacemaker. In the meantime patient is given IV Zofran, glucagon to counteract possible effects of calcium channel asher and fentanyl for pain associated with the transcutaneous pacing. Of note patient did not receive calcium gluconate or atropine while in the ER due to delay secondary to poor IV access. While in the [employer] patient is found to be acutely hyperkalemic and this is treated over in the ER. Patient is admitted to the ICU. Case is discussed also with hospitalist, Dr. Barrow. Lab Data Attestation: I reviewed the patient's lab results. Labs: Laboratory Results - last 24 hr 04/02/22 04/02/22 04/02/22 12:33 12:44 12:44 WBC 16.0 H RBC 3.82 L Hgb 11.6 L Hct 38.3 L MCV 100.3 H MCH 30.4 MCHC 30.3 L RDW Std Deviation 51.6 H RDW Coeff of Mere 14.0 Plt Count 539 H MPV 9.8 Immature Gran % (Auto) 1.000 H Neut % (Auto) 75.4 H Lymph % (Auto) 16.3 L Mills % (Auto) 6.3 Eos % (Auto) 0.6 Baso % (Auto) 0.4 Absolute Neuts (auto) 12.1 H Absolute Lymphs (auto) 2.62 Nucleated RBC % 0 Sodium 131 L Potassium 7.7 H* Chloride 94 L Carbon Dioxide 26.0 BUN 82 H Creatinine 6.18 H Estim Creat Clear Calc 12.52 Est GFR (MDRD) Af Amer 12 L Est GFR (MDRD) Non-Af 10 L BUN/Creatinine Ratio 13.3 Glucose 284 H Calcium 8.4 L Phosphorus 7.7 H Magnesium 2.9 H Troponin I High Sens 13 Albumin 3.2 TSH 2.69 POC Glucose 273 H Rhythm Strip Rhythm Strip: Bradycardia Rate: 29 Ectopy: PAC(s) EKG Initial EKG: Attestation: I personally reviewed and interpreted this EKG as follows: Comments: Significant bradycardia at a rate of 29 bpm with nontransmitted ectopic beat in a trigeminy pattern present. There is underlying atrial flutter. This could be third-degree AV block versus atrial flutter with a significantly slowed ventricular response. Critical Care Time Critical Care Time: Yes Critical care time (excluding procedures): 30-74 minutes (35), Discussing w/Consultants, Arranging Admission or Transfer and Performing Direct Patient Care at Bedside Discharge Plan Dx/Rx/DC Orders Clinical Impression: Bradycardic cardiac arrest, Atrial flutter, Cardiomyopathy, ESRD (end stage renal disease) on dialysis, Hyperkalemia Disposition Disposition: Acute Care Hospital [facility] Discharge Date/Time: 04/02/22 13:31
[2022-04-02 12:50] LABS: Bedside Glucose 273 mg/dL (74-106)
[2022-04-02 12:58] LABS: Absolute Lymphocyte Count 2.62 X10^3/uL (0.83-4.51); Absolute Neutrophil Count 12.1 X10^3/uL (2.0-7.7); Basophil# 0.07 X10^3/uL; Basophil% 0.4 % (0-1); Eosinophils% 0.6 % (0-5); Hematocrit 38.3 % (40-54); Hemoglobin 11.6 g/dL (13.0-16.5); Lymphocyte # 2.62 X10^3/ul (0.83-4.51); Lymphocyte % 16.3 % (19-41); Mean Corp Hgb Conc 30.3 g/dL (32-36); Mean Corpuscular Hgb 30.4 pg (27.0-32.0); Mean Corpuscular Volume 100.3 fL (80-94); Mean Platelet Vol. 9.8 fl (6.2-12.0); Monocyte# 1.01 X10^3/uL; Monocyte% 6.3 % (0-10); NRBC Flagged by Analyzer 0 % (0-5); Neutrophil # 12.07 X10^3/uL (2.7-7.7); Neutrophil % 75.4 % (47-70); Platelet Count 539 K/mm3 (150-450); RBC Distribution Width SD 51.6 fl (35.1-43.9); Red Blood Count 3.82 M/mm3 (4.6-6.2)
[2022-04-02] MEDS: Ondansetron 4 MG/2 ML Vial IV (13:05)
[2022-04-02] MEDS: fentaNYL 100 MCG/2 ML Ampul 50 MCG IV (13:05)
[2022-04-02] MEDS: Glucagon 1 MG/ML Syringe IV (13:09)
--- NOTE | 2022-04-02 13:09 | CM.ED ---
SW Note SW responded to code blue. No family present. SW remains available if social work needs arise. Soheila MCDONOUGH
--- NOTE | 2022-04-02 13:18 | CM.ED ---
SINAN called patient's next of kin, Jules Steinberg at [phone]. No answer and no voice mail to leave message. 1:19pm Soheila MCDONOUGH
[2022-04-02 13:28] LABS: Albumin, Serum 3.2 g/dL (3.2-5.0); BUN 82 mg/dL (7-18); BUN/Creat Ratio 13.3 RATIO (10-20); Calcium,Total 8.4 mg/dL (8.5-10.1); Chloride 94 mmol/L (98-107); Creatinine, Serum 6.18 mg/dL (0.70-1.30); EST Glomerular Filtration Rate 10 mL/min (>60); Est Glom Filt Rate - Afr Amer 12 mL/min (>60); Estimated Creatinine Clearance 12.52 ml/min; Glucose 284 mg/dL (74-106); Magnesium 2.9 mg/dL (1.6-2.6); Phosphorus 7.7 mg/dL (2.5-4.9); Potassium 7.7 mmol/L (3.5-5.1); Sodium Level 131 mmol/L (136-145); Thyroid Stim Hormone (TSH) 2.69 uIU/mL (0.358-3.74); Troponin-I HS (w/2H Reflex) 13 pg/mL (3.0-78.0)
--- NOTE | 2022-04-02 13:28 | NURSING ---
[address] GILLESPIE CALLED
--- NOTE | 2022-04-02 13:28 | NURSING ---
CASH ANALYST DR WARE
--- NOTE | 2022-04-02 13:44 | CM.ED ---
SINAN called patient's NOK, Mr. Steinberg. Phone rang repeatedly. No answer. No voice mail to leave message. Soheila MCDONOUGH
--- NOTE | 2022-04-02 13:50 | PCM.HP.STD ---
HPI - General General Date of Admission: 04/02/22 Date of Service: 04/02/22 Chief Complaint: Nausea, emesis, low HR at HD, referred to the ED. HPI Narrative The patient is a 66 y/o M w/ PMHx: ESRD on HD following with Dr. Montserrat Rios with catheter in place with ongoing AVF interventions following with Dr. Lam, HTN, HLD, Atrial flutter, Cardiomyopathy, Tobacco use, Hx CVA, IDDM, Hx VTE, COPD who presents to the [facility] ED on 04/02/22 referred from dialysis secondary to noted significant bradycardia at dialysis although from discussion with the clay preparation supervisor did reportedly have an entire session of dialysis but had significantly worsened his nausea and bouts of emesis which she had been having over the last 24 hours with no specific dyspnea, lightheadedness or chest pain prompting referral to the ED for evaluation. Upon ED arrival patient unfortunately had his heart rate dropped into the 20s and eventually became asystolic with CPR initiated and atropine administered with quick ROSC. External pacer pads were placed and patient was externally paced per cardiology direction who was emergently called per the ED. Patient was transition from the ED to the cardiac catheterization lab for temporary pacer insertion. Unfortunately patient's lab had not resulted prior to his transfer and following transition to the Chamber Walker upon review of labs his CMP did result with potassium of 7.7 with immediate orders requested to Chamber Walker including calcium gluconate, IV insulin, dextrose amp, albuterol, as well as albuterol treatment and once appropriate for ability to sit up Slight regimen. Immediately nephrology was contacted and relayed the situation, agree with current plans and interventions and noted that they would call and arrange dialysis. From discussion with patient, Cardiology as well as Nephrology patient has had ongoing issues with significant tachycardia with his atrial flutter with increase of his beta-asher and recently in the last 1 to 2 weeks a potential doubling of his diltiazem dose. Work-up noted in the ED included initially T95.5 Temporally, heart rate 55, BP 106/53, respiratory rate 24, 94% on room air prior to eventually becoming asystolic with immediate transition to the Chamber Walker once ROSC was obtained, CBC with WC 16, hemoglobin 11, MCV 100.3, platelet 539 with left shift, CMP with sodium 131, potassium 7.7 noted to not be hemolyzed, chloride 94, BUN/creatinine 82/6.18, glucose 284, calcium 8.4, phosphorus 7.7, mag 2.9, troponin initial 13, TSH 2.69, patient as noted initially with atrial flutter, bradycardic with no specific acute evidence of ischemia however on telemetry eventually became more bradycardic and had evidence asystole requiring CPR and following with also atropine administration external pacing pads were initiated per cardiology. Medications administered in the ED included aspirin 324 mg p.o. x1, atropine 1 mg IV x1, calcium gluconate IV 1 g x 1, fentanyl 50 mcg IV x1, glucagon 1 mg IV x1 as well as Zofran 4 mg IV x1. [facility] Medical History Atrial flutter Cardiomyopathy Chronic anemia COPD (chronic obstructive pulmonary disease) CVA (cerebral vascular accident) Diabetes 1.5, managed as type 2 End stage renal disease Essential hypertension History of renal dialysis Hyperlipidemia Hypertension Sensory disorder Smoker Thromboembolism Walker as ambulation aid Home Medications aspirin 81 mg tablet,delayed release (Adult Aspirin Regimen) 81 mg PO DAILY 10/18/21 [History Last Taken 11/25/21] pantoprazole 40 mg tablet,delayed release 40 mg PO DAILY 10/18/21 [History Last Taken 03/20/22 05:30] rivaroxaban 10 mg tablet (Xarelto) 10 mg PO DAILY 11/06/21 [History Last Taken 03/16/22] diltiazem HCl 120 mg capsule,extended release 24 hr 120 mg PO BID #180 caps 12/19/21 [Rx Last Taken 03/20/22 05:30] clopidogrel 75 mg tablet 75 mg PO DAILY 01/30/22 [History Last Taken 03/19/22] potassium chloride 20 mEq tablet,extended release 20 meq PO BID 01/30/22 [History Last Taken Unknown] metoprolol tartrate 100 mg tablet 100 mg PO BID #180 tabs 02/18/22 [Rx Last Taken 03/20/22 05:30] atorvastatin 20 mg tablet 20 mg PO DAILY 04/02/22 [History Last Taken Unknown] Allergy/AdvReac Type Severity Reaction Status Date / Time No Known Allergies Allergy Verified 03/20/22 09:37 Family History Mother Heart disease Father Heart disease Surgical History History of ankle surgery Social History Smoking Status: Current every day smoker tobacco type: cigarettes alcohol intake: former substance use type: does not use caffeine: No ROS ROS Narrative Admission Review of Systems: CONSTITUTIONAL: No weight loss, fever, chills, + weakness or fatigue. HEENT: Eyes: No visual loss, blurred vision, double vision or yellow sclerae. Ears, Nose, Throat: No hearing loss, sneezing, congestion, runny nose or sore throat. SKIN: No rash or itching, lesions, wounds. CARDIOVASCULAR: + Bradycardic, cardiac arrest, chest pain complaint only with external pacing with none prior, No palpitations, edema, orthopnea, syncopal events. RESPIRATORY: No shortness of breath, cough or sputum, wheezing, hemoptysis. GASTROINTESTINAL: + anorexia, nausea, vomiting, No diarrhea, abdominal pain, melena, BRBPR. GENITOURINARY: No dysuria, frequency, urgency or retention. NEUROLOGICAL: No headache, dizziness, syncope, paralysis, ataxia, numbness or tingling in the extremities, focal weakness, change in bowel or bladder control, seizure. MUSCULOSKELETAL: + muscle, back pain, joint pain or stiffness. HEMATOLOGIC: + anemia, bleeding or bruising. LYMPHATICS: No enlarged nodes. No history of splenectomy. PSYCHIATRIC: No history of depression or anxiety. ENDOCRINOLOGIC: No reports of sweating, cold or heat intolerance. No polyuria or polydipsia. ALLERGIES: No history of asthma, hives, eczema or rhinitis. Vital Signs Vital Signs Vital Signs: 04/02/22 12:29 04/02/22 12:33 04/02/22 12:56 Temperature 95.5 F L Temperature Source Temporal Pulse Rate 55 L Respiratory Rate 24 H Blood Pressure 106/53 L Blood Pressure Mean 70 Pulse Ox 94 Oxygen Delivery Method Room Air Room Air Oxygen Flow Rate (L/min) 04/02/22 13:13 04/02/22 13:30 Temperature 97.2 F L Temperature Source Temporal Pulse Rate 60 Respiratory Rate 16 Blood Pressure 0/0 L Blood Pressure Mean Pulse Ox 93 Oxygen Delivery Method Room Air Non-Rebreather Oxygen Flow Rate (L/min) 15 Weight Weight: 205 lb 4.006 oz Body Mass Index (BMI) 28.6 Physical Exam Narrative Physical Examination: General: Awake, alert, oriented to self, place and recent events, ashen in appearance, cooperative, laying in the bed being transitioned to the catheter lab eventually transition to the catheter lab, onset recurrent nausea and bouts of emesis while in the lab prior to intervention. Skin: Ashen appearance, mildly increased turgor, no icterus, no cyanosis, bilateral lower extremity stasis skin changes. HEENT: AT/NC, EOMI, PERRLA, dry MM, no carotid bruits or JVD noted; however doshi makes evaluation difficult. Lungs: Diminished, greater bases, mildly increased effort no rales, ronchi or wheezing. Heart: Currently being paced externally with pacer pads on the chest; no gallop, rub audible. Abdomen: Soft, overweight, NTTP, ND, hyperactive BS, no HSM; however patient while being evaluated did have sudden onset of nausea and bouts of emesis as well. Extremities: No cyanosis, no clubbing, no marked peripheral edema, AVS being initiated outpatient and ongoing, chest access in place for dialysis Neurological: Patient awake, alert, oriented as noted, cognitive function intact but patient is certainly reporting feeling ill and not feeling his baseline; pupils equally reactive to light and accommodation, cranial nerves grossly normal, moving all 4 extremities, strength severely global decreased secondary to acute presentation. Psychiatric: Affect appears flat, fatigued, ill-appearing, no acute evidence of depressive or anxiety feelings. Results Lab / Micro Data Result Diagrams: 04/02/22 12:44 04/02/22 12:44 Labs: Laboratory Results - last 24 hr 04/02/22 12:33: POC Glucose 273 H 04/02/22 12:44: WBC 16.0 H, RBC 3.82 L, Hgb 11.6 L, Hct 38.3 L, MCV 100.3 H, MCH 30.4, MCHC 30.3 L, RDW Std Deviation 51.6 H, RDW Coeff of Mere 14.0, Plt Count 539 H, MPV 9.8, Immature Gran % (Auto) 1.000 H, Neut % (Auto) 75.4 H, Lymph % (Auto) 16.3 L, [place] % (Auto) 6.3, Eos % (Auto) 0.6, Baso % (Auto) 0.4, Absolute Neuts (auto) 12.1 H, Absolute Lymphs (auto) 2.62, Nucleated RBC % 0 04/02/22 12:44: Sodium 131 L, Potassium 7.7 H*, Chloride 94 L, Carbon Dioxide 26.0, BUN 82 H, Creatinine 6.18 H, Estim Creat Clear Calc 12.52, Est GFR (MDRD) Af Amer 12 L, Est GFR (MDRD) Non-Af 10 L, BUN/Creatinine Ratio 13.3, Glucose 284 H, Calcium 8.4 L, Phosphorus 7.7 H, Magnesium 2.9 H, Troponin I High Sens 13, Albumin 3.2, TSH 2.69 Assessment & Plan Assessment/Plan (1) Bradycardic cardiac arrest: PLAN: Plan The patient is a 66 y/o M w/ PMHx: ESRD on HD following with Dr. Montserrat Riso with catheter in place with ongoing AVF interventions following with Dr. Lam, HTN, HLD, Atrial flutter, Cardiomyopathy suspected ischemic but unclear, Tobacco use, Hx CVA, IDDM, Hx VTE, COPD who presents to the [facility] ED on 04/02/22 referred from dialysis secondary to noted significant bradycardia at dialysis although from discussion with the clay preparation supervisor did reportedly have an entire session of dialysis but had significantly worsened his nausea and bouts of emesis which she had been having over the last 24 hours with no specific dyspnea, lightheadedness or chest pain prompting referral to the ED for evaluation. #1. Severe bradycardia, potentially in part iatrogenic with recent medication adjustments however also as noted #2 likely primarily etiology with significant severe hyperkalemia with cardiac arrest and eventual ROSC: We will admit to the ICU following cardiac interventions in the Chamber Walker with planned temporary pacing placement given concerning events in the emergency room, will continue judiciously hydrate given underlying cardiomyopathy, per discussions with cardiology will hold patient's anticoagulant therapy with planned reassessment in a.m. given current intervention plan to assure no bleeding postintervention, holding metoprolol and Cardizem, per discussion with cardiology will defer immediate repeat echocardiogram, magnesium level already obtained, TSH normal, treating hyperkalemia as noted, will request also interlocking and signal mechanic involvement and continue cardiology consultation #2. Severe hyperkalemia, likely contributing to acute presentation #1: Admission in ED labs eventually resulted with potassium 7.7, not noted to be hemolyzed, immediately discussed with cardiac catheterization lab administration of calcium gluconate, IV insulin, dextrose amp, albuterol as well as once able Kayexalate regimen, discussed emergent dialysis with patient's clay preparation supervisor which is being arranged, will continue to cycle patient's BMP serially to ensure reducing appropriately, maintain on telemetry in the ICU following cardiac intervention #3. Leukocytosis, unclear etiology: Patient with leukocytosis with left shift with no recent specific illness complaints but has been having nausea and emesis potentially related with #1, #2, will obtain chest x-ray to be cautious, urinalysis if able to make any urine, request procalcitonin, will obtain blood cultures to be cautious and trend CBC. #4. Atrial flutter: Patient recently with significant tachycardic issues, holding metoprolol and Cardizem regimen as well as temporarily holding patient's Xarelto regimen per discussion with cardiology with them noting plan for reevaluation in a.m. to assess for restart given planned temporary pacer placement. #5. Chronic anemia/anemia of chronic disease/macrocytic anemia: Admission hemoglobin 11.6, MCV 100.3, baseline noted most recently in the 9 range however prior to this in January patient did drop to 7.9 and was in the 12 range 11/2021, will continue to trend, vitamin B12 and folic acid levels requested. #6. Diabetes mellitus type II: Hold oral home regimen, once appropriate for oral intake will trial clears initially and then advance as tolerated to ADA diet, accu checks w/ ISS. #7. History CVA: Given current intervention per discussion with cardiology we will temporarily hold antiplatelet and anticoagulant therapy, restart in a.m. as long as no bleeding at temporary pacing insertion region, holding metoprolol as well as diltiazem as noted above, continue statin therapy. #8. Chronic COPD: Will maintain on oxygen with wean as tolerated to room air, continue ATC duonebs, PRN albuterol, HOB, IS parameters. #9. ESRD on HD: Patient with ongoing HD Thursday, following with Dr. Montserrat Rios, given acute presentation as noted requested emergent dialysis given severe hyperkalemia #10. Cardiomyopathy, suspected ischemic but unclear: #11. History of prior VTE: Patient with history of prior VTE, poor story and as far as timeline, temporarily holding anticoagulation as noted, restart in a.m. if appropriate per discussion with cardiology #12. Hypertension: Given current presentation holding patient diltiazem and metoprolol, well-appearing hydralazine if needed. #13. Hyperlipidemia: We will continue patient home statin therapy. #14. Tobacco Abuse: Encouraged cessation, inpatient consultation per RT, NR if desired. #15. GERD: We will continue patient on PPI. #16. DVT prophylaxis: SCDs, holding Xarelto as noted given planned intervention, potential resumption in a.m. if no evident bleeding. #17. CODE status: Patient does not have healthcare power of criminal defense attorney nor living will in place but if he was unable to make medical decisions he would want his younger brother to be the individual who would be contacted. Discussed CODE status at length including difference between FULL code, DNR-CCA and DNR-CC status. Following discussions about the differences in these status, requested Full Code status. Advanced Care Planning Face to Face Time: 16 minutes. Admission Evaluation Time spent evaluating chart, patient history, patient evaluation, care planning and discussion with specialists: 76 minutes. Charges/Coding Visit Charges Inpatient E&M: 64804 Init Hosp L3 Procedures Hospitalists Procedures: 09695 Advncd Care Plan 30 Min
--- NOTE | 2022-04-02 13:54 | CON.PCM.CA_ITS ---
Assessment & Plan Assessment/Plan (1) Bradycardic cardiac arrest: PLAN: Appears to be precipitated by the hyperkalemia which is being managed by his primary team. Will likely get dialysis today. For now we will hold his Cardizem and metoprolol and restart after dialysis once his rhythm is stable. He does have a temporary pacemaker that could be removed after correction of hyperkalemia and improvement in his heart rate. (2) Abnormal nuclear cardiac imaging test: PLAN: Will likely need coronary angiography which can be considered as an outpatient. Patient follows with Dr. Cruz (3) Atrial flutter: PLAN: We will hold the Cardizem, metoprolol and Xarelto for now. We will restar t after hyperkalemia is corrected and patient's rhythm is stable. (4) Cardiomyopathy: PLAN: EF was noted to be around 45%. He was getting worked up for this as an outpatient. Does not appear to be in decompensated heart failure at this time. HPI Consult Data Date of Consult: 04/02/22 HPI Narrative Reason for Consultation: Symptomatic bradycardia, asystole HPI Narrative: JOHN SAHU, is a 66 M who presents to the ER after being found to have a heart rate in the 20s at the dialysis center. Patient had some nausea this morning but denies any significant anginal type chest pain. Patient had stable blood pressure in the emergency room initially but subsequently went into asystole. He was given atropine and started on transcutaneous pacing. He responded well to this. Patient has history of a flutter and his beta-asher was increased in early January. He is also on Cardizem. It appears that he has been on this dose since then. Because of the significant bradycardia and asystole patient was brought emergently to the cardiac Kinesiology Professor and a temporary transvenous pacemaker was placed without any complications. As we were doing the procedure we got the results of the BMP and patient's potassium was found to be 7.7. He was given D50 and insulin. Calcium gluconate was ordered. Patient's rhythm was stable. Patient had a stress test suggested lateral wall ischemia. His EF was around 45%. Review of systems: All systems reviewed. All else is negative except that in [facility] Medical History (Updated 04/02/22 @ 14:[address] Fei Xiao MD) Atrial flutter Cardiomyopathy Chronic anemia COPD (chronic obstructive pulmonary disease) CVA (cerebral vascular accident) Diabetes 1.5, managed as type 2 End stage renal disease Essential hypertension History of renal dialysis Hyperlipidemia Hypertension Sensory disorder Smoker Thromboembolism Walker as ambulation aid Home Medications aspirin 81 mg tablet,delayed release (Adult Aspirin Regimen) 81 mg PO DAILY 10/18/21 [History Last Taken 11/25/21] pantoprazole 40 mg tablet,delayed release 40 mg PO DAILY 10/18/21 [History Last Taken 03/20/22 05:30] rivaroxaban 10 mg tablet (Xarelto) 10 mg PO DAILY 11/06/21 [History Last Taken 03/16/22] diltiazem HCl 120 mg capsule,extended release 24 hr 120 mg PO BID #180 caps 12/19/21 [Rx Last Taken 03/20/22 05:30] clopidogrel 75 mg tablet 75 mg PO DAILY 01/30/22 [History Last Taken 03/19/22] potassium chloride 20 mEq tablet,extended release 20 meq PO BID 01/30/22 [Histor y Last Taken Unknown] metoprolol tartrate 100 mg tablet 100 mg PO BID #180 tabs 02/18/22 [Rx Last Ta yun 03/20/22 05:30] atorvastatin 20 mg tablet 20 mg PO DAILY 04/02/22 [History Last Taken Unknown] Allergy/AdvReac Type Severity Reaction Status Date / Time No Known Allergies Allergy Verified 03/20/22 09:37 Family History (Updated 04/02/22 @ 13:[address] Brenda Barrow MD) Mother Heart disease Father Heart disease Surgical History (Updated 03/19/22 @ 09:17 by Mimi Prater) History of ankle surgery Social History Smoking Status: Current every day smoker tobacco type: cigarettes alcohol intake: former substance use type: does not use caffeine: No Physical Exam Const alert and oriented x3 HEENT normocephalic Eyes no scleral icterus Resp normal respiratory effort Psych mental status grossly normal Risk Stratification Risk Stratification Applicable: No Charges/Coding Visit Charges Inpatient E&M: 84080 Init Hosp L2 Objective Data Vital Signs: Vital Signs Temp Pulse Resp BP Pulse Ox O2 Del Method O2 Flow Rate 97.2 F L 60 16 0/0 L 93 Non-Rebreather 15 04/02/22 13:30 04/02/22 13:30 04/02/22 13:30 04/02/22 13:30 04/02/22 13:30 04/02/22 13:30 04/02/22 13:30 Oxygen Flow Rate (L/min) 15 Oxygen Delivery Method Non-Rebreather Weight: 205 lb 4.006 oz Body Mass Index (BMI) 28.6 Lab / Micro Data Result Diagrams: 04/02/22 12:44 04/02/22 12:44 Labs: Laboratory Results - last 24 hr 04/02/22 12:33: POC Glucose 273 H 04/02/22 12:44: WBC 16.0 H, RBC 3.82 L, Hgb 11.6 L, Hct 38.3 L, MCV 100.3 H, MCH 30.4, MCHC 30.3 L, RDW Std Deviation 51.6 H, RDW Coeff of Mere 14.0, Plt Count 539 H, MPV 9.8, Immature Gran % (Auto) 1.000 H, Neut % (Auto) 75.4 H, Lymph % (Auto) 16.3 L, [place] % (Auto) 6.3, Eos % (Auto) 0.6, Baso % (Auto) 0.4, Absolute Neuts (auto) 12.1 H, Absolute Lymphs (auto) 2.62, Nucleated RBC % 0 04/02/22 12:44: Sodium 131 L, Potassium 7.7 H*, Chloride 94 L, Carbon Dioxide 26.0, BUN 82 H, Creatinine 6.18 H, Estim Creat Clear Calc 12.52, Est GFR (MDRD) Af Amer 12 L, Est GFR (MDRD) Non-Af 10 L, BUN/Creatinine Ratio 13.3, Glucose 284 H, Calcium 8.4 L, Phosphorus 7.7 H, Magnesium 2.9 H, Troponin I High Sens 13, Albumin 3.2, TSH 2.69 Cardiology Labs/Tests 04/02/22 12:44: WBC 16.0 H, RBC 3.82 L, Hgb 11.6 L, Hct 38.3 L, MCV 100.3 H, MCH 30.4, MCHC 30.3 L, Plt Count 539 H, MPV 9.8, Immature Gran % (Auto) 1.000 H, Neut % (Auto) 75.4 H, Lymph % (Auto) 16.3 L, [place] % (Auto) 6.3, Eos % (Auto) 0.6, Baso % (Auto) 0.4, Absolute Neuts (auto) 12.1 H, Nucleated RBC % 0 04/02/22 12:44: Sodium 131 L, Potassium 7.7 H*, Chloride 94 L, Carbon Dioxide 26.0, BUN 82 H, Creatinine 6.18 H, Est GFR (MDRD) Af Amer 12 L, Est GFR (MDRD) Non-Af 10 L, BUN/Creatinine Ratio 13.3, Glucose 284 H, Calcium 8.4 L, Phosphorus 7.7 H, Magnesium 2.9 H Rhythm: EKG: ECHO: Stress Test: Cardiac Cath: PCI: CT Surgery: Holter monitor: EPS: PPM: CXR: Chest CT Scan:
--- NOTE | 2022-04-02 14:06 | PCM.PN.BLA ---
Progress Note Procedure note Procedures performed: Temporary pacemaker placement Indications: Symptomatic bradycardia, asystole Procedure description: Right common femoral vein access was obtained and a 7 Turkish sheath was inserted. A balloon tipped transvenous pacemaker was inserted and positioned in the RV without any complications. There was good capture all the way down to 1 mV. The temporary pacer was set at 50 bpm, 5 mV. Patient tolerated the procedure well. There were no complications. Conclusions: Successful transvenous temporary pacemaker placement.
--- NOTE | 2022-04-02 14:11 | CM.ED ---
SINAN called [facility] and spoke to Anitha. Anitha indicated that they have difficulty getting in touch with family. She provided phone number of Jules Steinberg [phone] and sibling Alex Yin [phone] . SW called Jules Steinberg's phone number and phone rang but mailbox was full so SW unable to leave a message.. SINAN called patient's other listed sibling, Alex Yin . SINAN spoke to Alex Yin and updated him about patient's presentation to the ED and subsequent transfer to labor economics professor and then to ICU. SINAN provided this administrative underwriter's contact phone number as well as main hospital number for Alex Yin. No other issues or concerns voiced. Soheila MCDONOUGH
[2022-04-02 14:49] LABS: Reflex Troponin-HS? (from REC) Y
[2022-04-02] MEDS: Albuterol *CONC* 2.5mg/0.5mL VIAL.NEB. 10 MG INHALATION (15:27)
--- NOTE | 2022-04-02 15:35 | ED.RN ---
PER DR. PINEDA, OK TO NOT GIVE ASPIRIN. UNABLE TO GIVE ATROPINE. PATIENT HAD GONE UNRESPONSIVE AND ASYSTOLE ON MONITOR. DR. PINEDA AT BEDSIDE DURING THE TIME.
--- NOTE | 2022-04-02 15:45 | CON.PCM.RE_ITS ---
Assessment & Plan Assessment/Plan (1) ESRD (end stage renal disease) on dialysis: PLAN: Dialysis Thursday, Thursday, Thursday. Arrange his usual dialysis today. (2) Hyperkalemia: PLAN: Emergent hemodialysis arranged in intensive care. 101K for 1 hour then 2K. History of noncompliance with diet (3) Bradycardic cardiac arrest: PLAN: Status post successful cardiac resuscitation with temporary pacer placement. Hold diltiazem and metoprolol. Recent titration for history of persistent tachycardia. (4) Nicotine dependence: PLAN: Patient continues to smoke (5) Dyslipidemia: (6) AVF (arteriovenous fistula): PLAN: Recently placed in March 20, 2022. Remove IV access from his left arm. No blood pressure, blood draws, IV in his access arm. HPI Consult Data Date of Consult: 04/02/22 HPI Narrative Reason for Consultation: ESRD HD MWF, emergent dialysis for hyperkalemia s/p CPA HPI Narrative: JOHN SAHU, is a 66 M who presents to the dialysis center this afternoon with nausea, vomiting, clammy, diaphoretic with bradycardia heart rate in the 30s. He was sent via squad to [facility] where he went into cardiac arrest and received CPR. He was sent to Assistant Tennis Coach for temporary pacer. Potassium was found to be elevated at 7.7. He has a history of tachycardia with heart rate over 100s. His diltiazem and metoprolol were recently increased by cardiology. Currently on hold due to his bradycardia arrhythmia. He has a history of hyperkalemia with noncompliance with diet despite numerous counseling on a renal diet. He received his full treatment on Thursday at the [facility]. He denies consuming foods high in potassium however patient is a poor, unreliable historian. He continues to smoke. He had a new AV fistula placed in his left upper arm on March 20, 2022. He was seen on dialysis in ICU. He is feeling better now. Heart rate in the 50s with chronically low blood pressure readings. [facility] Medical History (Updated 04/02/22 @ 15:[address] Montserrat Rios DO) Atrial flutter Cardiomyopathy Chronic anemia COPD (chronic obstructive pulmonary disease) CVA (cerebral vascular accident) Diabetes 1.5, managed as type 2 End stage renal disease Essential hypertension History of renal dialysis Hyperlipidemia Hypertension Sensory disorder Smoker Thromboembolism Walker as ambulation aid Home Medications aspirin 81 mg tablet,delayed release (Adult Aspirin Regimen) 81 mg PO DAILY 10/18/21 [History Last Taken 11/25/21] pantoprazole 40 mg tablet,delayed release 40 mg PO DAILY 10/18/21 [History Last Taken 03/20/22 05:30] rivaroxaban 10 mg tablet (Xarelto) 10 mg PO DAILY 11/06/21 [History Last Taken 03/16/22] diltiazem HCl 120 mg capsule,extended release 24 hr 120 mg PO BID #180 caps 12/19/21 [Rx Last Taken 03/20/22 05:30] clopidogrel 75 mg tablet 75 mg PO DAILY 01/30/22 [History Last Taken 03/19/22] potassium chloride 20 mEq tablet,extended release 20 meq PO BID 01/30/22 [History Last Taken Unknown] metoprolol tartrate 100 mg tablet 100 mg PO BID #180 tabs 02/18/22 [Rx Last Taken 03/20/22 05:30] atorvastatin 20 mg tablet 20 mg PO DAILY 04/02/22 [History Last Taken Unknown] Allergy/AdvReac Type Severity Reaction Status Date / Time No Known Allergies Allergy Verified 03/20/22 09:37 Family History Mother Heart disease Father Heart disease Surgical History History of ankle surgery Social History Smoking Status: Current every day smoker tobacco type: cigarettes alcohol intake: former substance use type: does not use caffeine: No ROS Review of Systems ROS Unobtainable: other Details: Poor historian Constitutional Constitutional: Reports weakness; Denies chills or fever(s) Eyes Eyes: Denies loss of vision Cardiovascular Cardiovascular: Reports dyspnea on exertion; Denies leg edema Respiratory/Chest Respiratory/Chest: Reports wheezing and other Details: Smoker, tobacco dependence Gastrointestinal Gastrointestinal: Reports nausea and vomiting; Denies abdominal pain, anorexia or diarrhea Genitourinary Genitourinary: Reports oliguria Integumentary Integumentary: Denies rash Neurologic Neurologic: Reports weakness; Denies confusion, focal weakness or syncope Psychiatric Psychiatric: Denies anxiety or confusion Hematologic/Lymphatic Hematologic/Lymphatic: Reports anemia Physical Exam Const alert, oriented x3 and no apparent distress HEENT normocephalic Resp Auscultation: wheezes Cardio regular rate Cardio Narrative: Temporary pacer placed GI non-tender and non-distended Auscultation: normoactive bowel sounds Palpation: soft Extremity Extremity Narrative: IV access found in his AV fistula in his left upper arm when seen on dialysis. Currently receiving dialysis with his tunneled dialysis catheter. New AV fistula left upper arm waiting to mature. Weak thrill and bruit. Difficult to palpate fistula. General Extremity: AV fistula Neuro CN's II-XII intact bilaterally Sensorium / Orientation: awake and alert Psych cooperative Lab / Micro Data Result Diagrams: 04/02/22 12:44 04/02/22 12:44 Labs: Laboratory Results - last 24 hr 04/02/22 12:33: POC Glucose 273 H 04/02/22 12:44: WBC 16.0 H, RBC 3.82 L, Hgb 11.6 L, Hct 38.3 L, MCV 100.3 H, MCH 30.4, MCHC 30.3 L, RDW Std Deviation 51.6 H, RDW Coeff of Mere 14.0, Plt Count 539 H, MPV 9.8, Immature Gran % (Auto) 1.000 H, Neut % (Auto) 75.4 H, Lymph % (Auto) 16.3 L, [place] % (Auto) 6.3, Eos % (Auto) 0.6, Baso % (Auto) 0.4, Absolute Neuts (auto) 12.1 H, Absolute Lymphs (auto) 2.62, Nucleated RBC % 0 04/02/22 12:44: Sodium 131 L, Potassium 7.7 H*, Chloride 94 L, Carbon Dioxide 26.0, BUN 82 H, Creatinine 6.18 H, Estim Creat Clear Calc 12.52, Est GFR (MDRD) Af Amer 12 L, Est GFR (MDRD) Non-Af 10 L, BUN/Creatinine Ratio 13.3, Glucose 284 H, Calcium 8.4 L, Phosphorus 7.7 H, Magnesium 2.9 H, Troponin I High Sens 13, Albumin 3.2, TSH 2.69
[2022-04-02] MEDS: Acetaminophen 325 MG Tablet 650 MG PO (15:55)
--- NOTE | 2022-04-02 16:18 | CHAPLAIN ---
Addendum entered by Jorge Romero 04/02/22 16:20: There was not an acquaintance present for this patient. The previously recorded charting indicated such but that individual was present for a different patient. Original Note: Type of Pastoral Visit ___ Initial Visit ___ Follow-up Visit ___ On-call Visit ___ General Patient Visit ___ Spiritual Assessment ___ Family Conference ___ Bereavement ___ Rapid Response _x__ Code Blue ___ Other (describe below) Pastoral Care Referral From ___ Patient ___ Family ___ Nurse ___ Physician ___ Computed Tomography Technologist ___ Chemist Helper _x__ Other (describe below) Sacrament/Intervention ___ Active listening ___ Anointing ___ Mu-Ism ___ Bereavement ___ Communion ___ Lianet exploration ___ ___ Life review ___ Prayer ___ Reconciliation ___ Sacrament of Sick _x__ Supportive presence ___ Wedding ___ Other (describe below) Pastoral Comments Ramana Sarabia was called and this informatica developer responded in the ED; pt was revived and to be taken to [facility] Site Services Specialist; no family was present; an acquaintance did show up but did not seek support; SW was also present at this time
[2022-04-02 17:14] LABS: Troponin-I HS 20 pg/mL (3.0-78.0)
--- NOTE | 2022-04-02 17:19 | RAD_ITS ---
INDICATION: leukocytosis EXAMINATION/TECHNIQUE: X-RAY - XR Chest 1 View COMPARISON: 11/28/2021. FINDINGS: The lungs are clear. Tortuous and calcified thoracic aorta. The heart is mildly enlarged. Right-sided hemodialysis catheter. No pleural effusion or pneumothorax. Degenerative changes of the thoracic spine. RAD/Chest 1 View (Portable) IMPRESSION: No acute radiographic abnormalities. Electronically Signed: Regulo Mitchell MD at 17:58 EST ,
[2022-04-02 17:30] LABS: Bedside Glucose 86 mg/dL (74-106)
--- NOTE | 2022-04-02 18:50 | DIALYSIS ---
Hemodialysis completed x 3 hrs 45 min. Access via right chest HD cath. dressing changed. site benign. Net UF 3000ml. pt dorota well. See HD flowsheet on chart.
[2022-04-02 18:56] LABS: Troponin-I HS 26 pg/mL (3.0-78.0)
[2022-04-02] MEDS: Ipratropium/Albuterol Sulfate 3 ML AMPUL.NEB INHALATION (19:46)
[2022-04-02] MEDS: Heparin 10,000 UNITS/10 ML Vial 3600 UNITS IV (20:02)
[2022-04-02] MEDS: oxyCODONE 5 MG Tablet PO (20:02)
[2022-04-02] MEDS: Pantoprazole Sodium 40 MG Tablet PO (20:59)
[2022-04-02 22:03] LABS: Anion Gap 7 (5-15); BUN 30 mg/dL (7-18); BUN/Creat Ratio 9.8 RATIO (10-20); Calcium,Total 7.9 mg/dL (8.5-10.1); Chloride 97 mmol/L (98-107); Creatinine, Serum 3.06 mg/dL (0.70-1.30); EST Glomerular Filtration Rate 22 mL/min (>60); Est Glom Filt Rate - Afr Amer 26 mL/min (>60); Estimated Creatinine Clearance 25.29 ml/min; Glucose 139 mg/dL (74-106); Potassium 4.6 mmol/L (3.5-5.1); Sodium Level 136 mmol/L (136-145)
[2022-04-03] VITALS (23 sets, daily range): BP systolic 109–149; BP diastolic 52–81; PULSE 69–88; RESP 12–22; TEMP 36.3–36.9; O2SAT 91–99
[2022-04-03] MEDS: oxyCODONE 5 MG Tablet PO ×2 (03:55→14:47)
[2022-04-03 03:58] LABS: Absolute Lymphocyte Count 1.62 X10^3/uL (0.83-4.51); Basophil# 0.05 X10^3/uL; Basophil% 0.4 % (0-1); Eosinophil# 0.07 X10^3/uL; Eosinophils% 0.6 % (0-5); Hematocrit 33.2 % (40-54); Hemoglobin 10.1 g/dL (13.0-16.5); Lymphocyte # 1.62 X10^3/ul (0.83-4.51); Lymphocyte % 13.5 % (19-41); Mean Corp Hgb Conc 30.4 g/dL (32-36); Mean Corpuscular Volume 98.5 fL (80-94); Mean Platelet Vol. 9.9 fl (6.2-12.0); NRBC Flagged by Analyzer 0 % (0-5); Neutrophil # 8.98 X10^3/uL (2.7-7.7); Neutrophil % 74.8 % (47-70); Platelet Count 375 K/mm3 (150-450); RBC Distribution Width CV 14.4 % (11.6-14.6); RBC Distribution Width SD 51.9 fl (35.1-43.9); Red Blood Count 3.37 M/mm3 (4.6-6.2)
[2022-04-03 04:51] LABS: ALB/GLOB Ratio 0.7 RATIO (0.9-2.4); AST(SGOT) 91 U/L (15-37); Alanine Aminotransfer ALT/SGPT 94 U/L (16-61); Albumin, Serum 3.1 g/dL (3.2-5.0); Alkaline Phosphatase 103 U/L (45-117); Anion Gap 8 (5-15); BUN 35 mg/dL (7-18); BUN/Creat Ratio 9.4 RATIO (10-20); Calcium,Total 8.2 mg/dL (8.5-10.1); Chloride 93 mmol/L (98-107); Creatinine, Serum 3.71 mg/dL (0.70-1.30); EST Glomerular Filtration Rate 18 mL/min (>60); Est Glom Filt Rate - Afr Amer 21 mL/min (>60); Estimated Creatinine Clearance 20.86 ml/min; Globulin 4.7 g/dL (2.2-4.2); Glucose 103 mg/dL (74-106); Potassium 5.5 mmol/L (3.5-5.1); Protein, Total 7.8 g/dL (6.4-8.2); Sodium Level 132 mmol/L (136-145)
--- NOTE | 2022-04-03 05:55 | EKG12_ITS ---
Test Reason : AM EKG Blood Pressure : / mmHG Vent. Rate : 074 BPM Atrial Rate : 074 BPM P-R Int : 204 ms QRS Dur : 092 ms QT Int : 424 ms P-R-T Axes : 025 019 084 degrees QTc Int : 470 ms Normal sinus rhythm Normal ECG When compared with ECG of 02-APR-2022 12:31, MANUAL COMPARISON REQUIRED, DATA IS UNCONFIRMED Confirmed by IDANIA BLANCHARD, HARDEEP ([id number]), society editor JOHN RIDDLE ([id number]) on 04/04/2022 12:53:26 P M Referred By: Román Dick Confirmed By:JESS EMERSON MD
--- NOTE | 2022-04-03 05:57 | EX.PCM.CONCC ---
Assessment & Plan Assessment/Plan (1) Symptomatic bradycardia: PLAN: Plan RECOMMENDATIONS: 1. Wean supplemental oxygen to maintain saturations at or above 90%. 2. Continue scheduled DuoNebs. 3. Encourage incentive spirometer use and mobilize patient as tolerated. 4. Ongoing dialysis support per nephrology recommendations. 5. The patient is medically stable for transfer out of the intensive care unit. 6. Will sign off from a critical care perspective. Please call with any additional questions. IMPRESSIONS: 1. Symptomatic bradycardia The patient presented to the hospital with symptomatic bradycardia and sustained a brief cardiac arrest with asystole. Return of spontaneous circulation was achieved quickly. A temporary pacemaker was placed. His bradycardia was felt to be the consequence of concurrent use of beta-blockade and calcium channel asher. With supportive care, the patient stabilized clinically. He is no longer pacer dependent. Therefore, his temporary wire was discontinued this morning by cardiology. 2. Severe hyperkalemia/end-stage renal disease on hemodialysis Likely contributed to the patient's presenting symptoms. The patient did undergo dialysis yesterday with subsequent resolution of his electrolyte abnormalities. Continue ongoing hemodialysis support per nephrology recommendations. 3. History of atrial flutter/history of COPD/chronic tobacco dependency/hypertension/hyperlipidemia Complicates care, management, recovery and prognosis. Continue home medications as indicated. This note was generated with Xinguodu dictation software. It may contain incorrect words, spelling, and punctuation that were not noted in checking the note before signing. HPI Consult Data Date of Consult: 04/03/22 HPI Narrative Reason for Consultation: Cardiac arrest HPI Narrative: The patient is a 66-year-old male, with a history as outlined below, who presented to the emergency department on April 02 with symptomatic bradycardia at his routine dialysis session. The patient has a known history of tobacco dependency, underlying cardiomyopathy, end-stage renal disease on hemodialysis and atrial flutter. He is currently followed by Dr. Cruz in the cardiology clinic. The patient does report that he has a history of COPD as well and typically utilizes DuoNebs in his home environment, as needed. The patient recently was placed on Cardizem for heart rate control by his cardiology provider. On presentation to the emergency department, the patient was noted to be hypotensive and bradycardic. Initial laboratory evaluation revealed an elevated white blood cell count to 16,000. Platelet count was elevated to 539,000. Chemistry profile was notable for a sodium of 131, potassium of 7.7, chloride of 94 and creatinine of 6.18. Troponin was negative. In the emergency department, the patient was initially managed with atropine but eventually became unresponsive with an agonal rhythm. ACLS was initiated. Epinephrine was administered and transcutaneous pacing initiated. The patient was taken to the cardiac Teacher Selection Specialist where he underwent temporary pacemaker placement. Postprocedure, the patient was transferred to the medical intensive care unit for further management. [facility] Medical History (Updated 04/03/22 @ 09:[address] Josias Denny DO) Atrial flutter Cardiomyopathy Chronic anemia COPD (chronic obstructive pulmonary disease) CVA (cerebral vascular accident) Diabetes 1.5, managed as type 2 End stage renal disease Essential hypertension History of renal dialysis Hyperlipidemia Hypertension Sensory disorder Smoker Thromboembolism Walker as ambulation aid Home Medications aspirin 81 mg tablet,delayed release (Adult Aspirin Regimen) 81 mg PO DAILY 10/18/21 [History Last Taken 11/25/21] pantoprazole 40 mg tablet,delayed release 40 mg PO DAILY 10/18/21 [History Last Taken 03/20/22 05:30] rivaroxaban 10 mg tablet (Xarelto) 10 mg PO DAILY 11/06/21 [History Last Taken 03/16/22] diltiazem HCl 120 mg capsule,extended release 24 hr 120 mg PO BID #180 caps 12/19/21 [Rx Last Taken 03/20/22 05:30] clopidogrel 75 mg tablet 75 mg PO DAILY 01/30/22 [History Last Taken 03/19/22] potassium chloride 20 mEq tablet,extended release 20 meq PO BID 01/30/22 [History Last Taken Unknown] metoprolol tartrate 100 mg tablet 100 mg PO BID #180 tabs 02/18/22 [Rx Last Taken 03/20/22 05:30] atorvastatin 20 mg tablet 20 mg PO DAILY 04/02/22 [History Last Taken Unknown] Allergy/AdvReac Type Severity Reaction Status Date / Time No Known Allergies Allergy Verified 03/20/22 09:37 Family History Mother Heart disease Father Heart disease Surgical History History of ankle surgery Social History Smoking Status: Current every day smoker tobacco type: cigarettes alcohol intake: former substance use type: does not use caffeine: No ROS ROS Narrative 10 systems reviewed with pertinent positives as noted in the HPI above. Physical Exam Const alert, oriented x3 and no apparent distress General Appearance: cooperative HEENT normocephalic, head/scalp atraumatic and moist oral mucous membranes Eyes PERRL, EOMs intact bilaterally and conjunctivae normal Neck supple General: trachea midline Chest inspection of chest normal Resp Auscultation: wheezes and diminished lung sounds Cardio regular rate and regular rhythm GI normal to inspection, nondistended, normoactive bowel sounds Extremity no clubbing, cyanosis or edema Skin no rashes or lesions noted Neuro CN's II-XII intact bilaterally, moves all extremities and no focal motor deficits Psych cooperative and affect normal Lab / Micro Data Result Diagrams: 04/03/22 03:50 04/03/22 04:25 Labs: Laboratory Results - last 24 hr 04/02/22 06:25: Troponin I High Sens 26 04/02/22 12:33: POC Glucose 273 H 04/02/22 12:44: WBC 16.0 H, RBC 3.82 L, Hgb 11.6 L, Hct 38.3 L, MCV 100.3 H, MCH 30.4, MCHC 30.3 L, RDW Std Deviation 51.6 H, RDW Coeff of Mere 14.0, Plt Count 539 H, MPV 9.8, Immature Gran % (Auto) 1.000 H, Neut % (Auto) 75.4 H, Lymph % (Auto) 16.3 L, [place] % (Auto) 6.3, Eos % (Auto) 0.6, Baso % (Auto) 0.4, Absolute Neuts (auto) 12.1 H, Absolute Lymphs (auto) 2.62, Nucleated RBC % 0 04/02/22 12:44: Sodium 131 L, Potassium 7.7 H*, Chloride 94 L, Carbon Dioxide 26.0, BUN 82 H, Creatinine 6.18 H, Estim Creat Clear Calc 12.52, Est GFR (MDRD) Af Amer 12 L, Est GFR (MDRD) Non-Af 10 L, BUN/Creatinine Ratio 13.3, Glucose 284 H, Calcium 8.4 L, Phosphorus 7.7 H, Magnesium 2.9 H, Troponin I High Sens 13, Albumin 3.2, TSH 2.69 04/02/22 16:10: Troponin I High Sens 20 04/02/22 16:57: POC Glucose 86 04/02/22 21:00: Sodium 136, Potassium 4.6, Chloride 97 L, Carbon Dioxide 32.0, Anion Gap 7, BUN 30 H, Creatinine 3.06 H, Estim Creat Clear Calc 25.29, Est GFR (MDRD) Af Amer 26 L, Est GFR (MDRD) Non-Af 22 L, BUN/Creatinine Ratio 9.8 L, Glucose 139 H, Calcium 7.9 L 04/03/22 03:50: WBC 12.0 H, RBC 3.37 L, Hgb 10.1 L, Hct 33.2 L, MCV 98.5 H, MCH 30.0, MCHC 30.4 L, RDW Std Deviation 51.9 H, RDW Coeff of Mere 14.4, Plt Count 375, MPV 9.9, Immature Gran % (Auto) 0.700, Neut % (Auto) 74.8 H, Lymph % (Auto) 13.5 L, [place] % (Auto) 10.0, Eos % (Auto) 0.6, Baso % (Auto) 0.4, Absolute Neuts (auto) 9.0 H, Absolute Lymphs (auto) 1.62, Nucleated RBC % 0 04/03/22 03:50: Sodium Cancelled, Potassium Cancelled, Chloride Cancelled, Carbon Dioxide Cancelled, Anion Gap Cancelled, BUN Cancelled, Creatinine Cancelled, Estim Creat Clear Calc Cancelled, Est GFR (MDRD) Af Amer Cancelled, Est GFR (MDRD) Non-Af Cancelled, BUN/Creatinine Ratio Cancelled, Glucose Cancelled, Calcium Cancelled, Total Bilirubin Cancelled, AST Cancelled, ALT Cancelled, Alkaline Phosphatase Cancelled, Total Protein Cancelled, Albumin Cancelled, Globulin Cancelled, Albumin/Globulin Ratio Cancelled 04/03/22 04:25: Sodium 132 L, Potassium 5.5 H, Chloride 93 L, Carbon Dioxide 31.0, Anion Gap 8, BUN 35 H, Creatinine 3.71 H, Estim Creat Clear Calc 20.86, Est GFR (MDRD) Af Amer 21 L, Est GFR (MDRD) Non-Af 18 L, BUN/Creatinine Ratio 9.4 L, Glucose 103, Calcium 8.2 L, Total Bilirubin 0.50, AST 91 H, ALT 94 H, Alkaline Phosphatase 103, Total Protein 7.8, Albumin 3.1 L, Globulin 4.7 H, Albumin/Globulin Ratio 0.7 L Rhythm Strip Rhythm Strip: Bradycardia Rate: 29 Ectopy: PAC(s) Radiology Impression Chest X-Ray 04/02/22 17:19 IMPRESSION: No acute radiographic abnormalities. Electronically Signed: Regulo Mitchell MD at 17:58 EST , Charges/Coding Visit Charges Inpatient E&M: 62670 Init Hosp L3
--- NOTE | 2022-04-03 07:25 | PCM.PN.HOSP ---
Reason for Visit Reason for Visit: Diagnoses Hyperlipidemia, unspecified (04/02/22) Hyperkalemia (04/02/22) Nicotine dependence, unspecified, uncomplicated (04/02/22) Cardiomyopathy, unspecified (04/02/22) Cardiac arrest due to underlying cardiac condition (04/02/22) Unspecified atrial flutter (04/02/22) Arteriovenous fistula, acquired (04/02/22) End stage renal disease (04/02/22) Bradycardia, unspecified (04/02/22) Abnormal findings on diagnostic imaging of heart and coronary circulation (04/02/22) Dependence on renal dialysis (04/02/22) Subjective Subjective Mr. Yin is a 66-year-old white male with a history of end-stage renal disease on hemodialysis who presented to the emergency department with nausea, vomiting, and bradycardia while on dialysis. He evidently was found to be bradycardic while at dialysis however he did evidently have his entire dialysis session prior to admission. He had significantly worsening bouts of nausea and vomiting which he had been having over the past 24 hours prior to presentation. Upon arrival to the emergency department his heart rate dropped in the 20s and he eventually became asystolic and required CPR and was given atropine with quick ROSC. External pacer pads were placed and cardiology was consulted. He was taken from the emergency department to the [facility] where a temporary transvenous pacer was placed. After he was taken the [facility] he was found a potassium of 7.7 and was given calcium gluconate, IV insulin, dextrose, albuterol and nephrology was contacted to discuss his acute hyperkalemia and bradycardia. Dialysis was arranged. The patient evidently had some outpatient issues with significant tachycardia and was dealing with this by instruction of cardiology to increase his beta-asher and calcium channel asher. Patient states he is feeling better today. Temporary pacer was removed this morning by cardiology. Only complaint is that he is having some chest discomfort related to his CPR. He is on oxygen and does not wear oxygen at baseline. Objective Data Objective Data Vital Signs: Vital Signs Temp Pulse Resp BP Pulse Ox O2 Del Method O2 Flow Rate 97.6 F L 75 18 133/61 H 96 Nasal Cannula 4 04/03/22 03:00 04/03/22 06:00 04/03/22 06:00 04/03/22 06:00 04/03/22 06:00 04/03/22 06:00 04/03/22 06:00 Oxygen Flow Rate (L/min) 4 Oxygen Delivery Method Nasal Cannula Weight: 87.8 kg Body Mass Index (BMI) 27.1 Intake & Output: Intake and Output for Last 24 Hours 04/01/22 04/02/22 04/03/22 23:59 23:59 23:59 Output Total 3000 / 3000 0 / 0 Balance -3000 / -3000 0 / 0 Lab / Micro Data Result Diagrams: 04/03/22 03:50 04/03/22 04:25 Labs: Laboratory Results - last 24 hr 04/02/22 06:25: Troponin I High Sens 26 04/02/22 12:33: POC Glucose 273 H 04/02/22 12:44: WBC 16.0 H, RBC 3.82 L, Hgb 11.6 L, Hct 38.3 L, MCV 100.3 H, MCH 30.4, MCHC 30.3 L, RDW Std Deviation 51.6 H, RDW Coeff of Mere 14.0, Plt Count 539 H, MPV 9.8, Immature Gran % (Auto) 1.000 H, Neut % (Auto) 75.4 H, Lymph % (Auto) 16.3 L, [place] % (Auto) 6.3, Eos % (Auto) 0.6, Baso % (Auto) 0.4, Absolute Neuts (auto) 12.1 H, Absolute Lymphs (auto) 2.62, Nucleated RBC % 0 04/02/22 12:44: Sodium 131 L, Potassium 7.7 H*, Chloride 94 L, Carbon Dioxide 26.0, BUN 82 H, Creatinine 6.18 H, Estim Creat Clear Calc 12.52, Est GFR (MDRD) Af Amer 12 L, Est GFR (MDRD) Non-Af 10 L, BUN/Creatinine Ratio 13.3, Glucose 284 H, Calcium 8.4 L, Phosphorus 7.7 H, Magnesium 2.9 H, Troponin I High Sens 13, Albumin 3.2, TSH 2.69 04/02/22 16:10: Troponin I High Sens 20 04/02/22 16:57: POC Glucose 86 04/02/22 21:00: Sodium 136, Potassium 4.6, Chloride 97 L, Carbon Dioxide 32.0, Anion Gap 7, BUN 30 H, Creatinine 3.06 H, Estim Creat Clear Calc 25.29, Est GFR (MDRD) Af Amer 26 L, Est GFR (MDRD) Non-Af 22 L, BUN/Creatinine Ratio 9.8 L, Glucose 139 H, Calcium 7.9 L 04/03/22 03:50: WBC 12.0 H, RBC 3.37 L, Hgb 10.1 L, Hct 33.2 L, MCV 98.5 H, MCH 30.0, MCHC 30.4 L, RDW Std Deviation 51.9 H, RDW Coeff of Mere 14.4, Plt Count 375, MPV 9.9, Immature Gran % (Auto) 0.700, Neut % (Auto) 74.8 H, Lymph % (Auto) 13.5 L, [place] % (Auto) 10.0, Eos % (Auto) 0.6, Baso % (Auto) 0.4, Absolute Neuts (auto) 9.0 H, Absolute Lymphs (auto) 1.62, Nucleated RBC % 0 04/03/22 03:50: Sodium Cancelled, Potassium Cancelled, Chloride Cancelled, Carbon Dioxide Cancelled, Anion Gap Cancelled, BUN Cancelled, Creatinine Cancelled, Estim Creat Clear Calc Cancelled, Est GFR (MDRD) Af Amer Cancelled, Est GFR (MDRD) Non-Af Cancelled, BUN/Creatinine Ratio Cancelled, Glucose Cancelled, Calcium Cancelled, Total Bilirubin Cancelled, AST Cancelled, ALT Cancelled, Alkaline Phosphatase Cancelled, Total Protein Cancelled, Albumin Cancelled, Globulin Cancelled, Albumin/Globulin Ratio Cancelled 04/03/22 04:25: Sodium 132 L, Potassium 5.5 H, Chloride 93 L, Carbon Dioxide 31.0, Anion Gap 8, BUN 35 H, Creatinine 3.71 H, Estim Creat Clear Calc 20.86, Est GFR (MDRD) Af Amer 21 L, Est GFR (MDRD) Non-Af 18 L, BUN/Creatinine Ratio 9.4 L, Glucose 103, Calcium 8.2 L, Total Bilirubin 0.50, AST 91 H, ALT 94 H, Alkaline Phosphatase 103, Total Protein 7.8, Albumin 3.1 L, Globulin 4.7 H, Albumin/Globulin Ratio 0.7 L Radiography Diagnostic Testing: Radiology Impression Chest X-Ray 04/02/22 17:19 IMPRESSION: No acute radiographic abnormalities. Electronically Signed: Regulo Mitchell MD at 17:58 EST , Rhythm Strip Rhythm Strip: Bradycardia Rate: 29 Ectopy: PAC(s) Physical Exam Const alert and oriented x3 Constitutional Narrative: Overweight, upper middle-aged white male lying in bed, appears much older than stated age, appears chronically ill but not acutely toxic, pleasant HEENT moist oral mucous membranes HEENT Narrative: Has some eating on the posterior aspect of his scalp however is difficult to tell where it is coming from there is blood on his sheet, dentition is poor, Mallampati is 2, no thrush Head and Scalp: normocephalic Resp Resp Narrative: Diffusely diminished with few scattered end expiratory wheezes, few bibasilar crackles Auscultation: rales and wheezes; Negative for rhonchi Cardio regular rate, regular rhythm, S1 normal heart sound, S2 normal heart sound, no murmurs, no rub, no gallops and no clicks GI normal to inspection, nondistended, normoactive bowel sounds, soft to palpation and non-tender Extremity no clubbing, cyanosis or edema Skin no jaundice, no petechiae and no mottling Skin Narrative: Bilateral lower extremity onychomycosis with scattered black areas on his feet-no signs of infection, feet appear unclean, tunneled dialysis catheter right upper chest, dressing is intact and area is clean and dry Neuro oriented x3, moves all extremities and no focal motor deficits Neuro Narrative: Abnormal sensation bilateral distal lower extremities Speech: speech normal Psych affect normal Psych Narrative: Good eye contact, mood seems stable Assessment & Plan Assessment/Plan (1) Bradycardic cardiac arrest: (2) Hyperkalemia: (3) Leukocytosis: (4) Atrial flutter: PLAN: Plan Bradycardic cardiac arrest -May be iatrogenic in part with recent adjustments of his beta-asher and calcium channel asher due to ongoing tachycardic issues with his atrial flutter/patient also was markedly hyperkalemic upon presentation -Underwent urgent dialysis -Prior to dialysis patient was given calcium gluconate, IV insulin, dextrose, albuterol, and Kayexalate -Potassium this morning is down to 5.5 -It appears from previous lab that the patient likely runs from 5-6 at baseline -Transvenous pacer removed this morning -Continue hold beta-asher and calcium channel asher -Per documentation patient does have noncompliance with renal diet which likely contributed as well -Cardiology and nephrology consulted-appreciate input -Transfer to PCU Severe hyperkalemia -May be in part the etiology for his bradycardic arrest -Was treated with emergent dialysis -Prior to dialysis patient was given calcium gluconate, IV insulin, dextrose, albuterol, and Kayexalate -Potassium is 5.5 this morning -Appreciate nephrology input -Renal diet Leukocytosis -Suspect reactive with CPR and bradycardic arrest -Is trending down without any intervention -Repeat CBC in a.m. Atrial flutter with tachycardia -Metoprolol and Cardizem regimen were recently increased -Holding beta-asher and calcium channel asher due to bradycardia -Xarelto on hold given cardiology's recommendations for possible further intervention required depending on heart rates -Cardiology following-appreciate input for assistance with management Hypoxia -Patient is currently on 4 L and it does not appear that he is on chronic oxygen at home -Sats are currently 96% so we should be able to wean his oxygen some -Wean to room air as tolerated -Continue DuoNebs scheduled and as needed albuterol -I-S -Patient does have COPD at baseline Chronic anemia secondary to end-stage renal disease -Counts are stable -Current hemoglobin 10.1 -Monitor clinically -Patient is currently on triple therapy with aspirin, Plavix, and Xarelto -We will restart Plavix and Xarelto but hold aspirin and discuss with cardiology about discontinuing prior to discharge DM-2 -Hold oral regimen -Sliding scale -Accu-Cheks -Cardiac/carb controlled/renal diet End-stage renal disease-HD dependent -Patient typically receives dialysis Thursday/Thursday/Thursday -Emergent dialysis done yesterday for severe hyperkalemia -Patient has history of noncompliance with diet recommendations -Primary champion of sustainable design, Dr. Rios, is consulted and following History of DVT -On Xarelto at baseline--> restart Hypertension -As needed hydralazine -Calcium channel asher and beta-asher on hold due to bradycardia -Will need to readdress once acute issues have resolved Hyperlipidemia -Continue home statin GERD -Continue home PPI History of cardiomyopathy -Per cardiology documentation will likely need coronary angiography as an outpatient -Patient follows with Dr. Cruz -Cardiology is following here-appreciate input -Outpatient work-up is in progress -No signs of decompensation at this time -Baseline EF is around 45% -Start home Plavix hold aspirin as patient is also on Xarelto Tobacco abuse -Recommend cessation -Nicotine replacement available if patient wants to utilize DVT prophylaxis -Restart Xarelto -Continue SCDs CODE STATUS -Full code as verified on admission Charges/Coding Visit Charges Inpatient E&M: 88599 Subs Hosp L2
[2022-04-03] MEDS: Ipratropium/Albuterol Sulfate 3 ML AMPUL.NEB INHALATION ×3 (07:31→19:40)
--- NOTE | 2022-04-03 08:05 | NURSING ---
Dr. Dick at bedside and removed the right groin temporary pacer. Anant Barksdale RN removed right femoral venous sheath. Pressure held for 10 minutes. Site soft, no bruising noted.
[2022-04-03 10:16] LABS: Bedside Glucose 130 mg/dL (74-106)
--- NOTE | 2022-04-03 10:40 | CASEMGMT ---
RN CM Face to Face with patient for initial transition planning/care coordination assessment. RN CM introduced self and role at [facility]. Patient lying in bed, alert and oriented. Patient willing to participate in assessment and is able to answer all questions appropriately. Care providers, pharmacy, and demographics verified. Patient wishes to discharge home, denies need for home health at this time. Patient states he has no further needs or concerns at this time. CM to follow for discharge planning needs that may arise. PCP: Erin Specialists: Anthony, lag screwer; Genaro, surgeon; Gabriel buyer Preferred Pharmacy: [facility] [place] Insurance: [employer] Prescription Benefit: yes Living Will/HPOA: none LNOK: Brother in law Living Arrangements: Patient lives alone in a single story home with ramp to enter. Patient states he is independent at home. Transportation: [employer], [employer], [facility] Van DME/HHC: Patient has shower chair, BSC, cane, grab bars, walker, wheelchair, nebulizer, pusle ox at home. Patient attends outpatient HD at [facility] MWF 1100. Patient denies previous HHC or SNF. Disposition Plan: Patient to discharge home with family support and follow-up plans in place. Meghann PEREZ, RN, CM
[2022-04-03 14:20] LABS: Bedside Glucose 148 mg/dL (74-106)
[2022-04-03] MEDS: Acetaminophen 325 MG Tablet 650 MG PO (14:46)
--- NOTE | 2022-04-03 15:39 | PCM.PN.REN ---
Subjective Subjective transferred to floor, HR stable. potassium 5.5. emergent Dialysis yesterday for hyperkalemia, cardiac arrest with bradycardia Objective Data Objective Data Vital Signs: Vital Signs Temp Pulse Resp BP Pulse Ox O2 Del Method O2 Flow Rate 98.1 F 78 16 128/66 H 91 Nasal Cannula 4 04/03/22 13:21 04/03/22 13:21 04/03/22 13:21 04/03/22 13:21 04/03/22 13:21 04/03/22 13:21 04/03/22 13:21 Oxygen Flow Rate (L/min) 4 Oxygen Delivery Method Nasal Cannula Weight: 87.8 kg Body Mass Index (BMI) 27.1 Intake & Output: Intake and Output for Last 24 Hours 04/01/22 04/02/22 04/03/22 23:59 23:59 23:59 Output Total 3000 / 3000 0 / 0 Balance -3000 / -3000 0 / 0 Lab / Micro Data Result Diagrams: 04/04/22 05:50 04/04/22 05:50 Labs: Laboratory Results - last 24 hr 04/02/22 06:25: Troponin I High Sens 26 04/02/22 16:10: Troponin I High Sens 20 04/02/22 16:57: POC Glucose 86 04/02/22 21:00: Sodium 136, Potassium 4.6, Chloride 97 L, Carbon Dioxide 32.0, Anion Gap 7, BUN 30 H, Creatinine 3.06 H, Estim Creat Clear Calc 25.29, Est GFR (MDRD) Af Amer 26 L, Est GFR (MDRD) Non-Af 22 L, BUN/Creatinine Ratio 9.8 L, Glucose 139 H, Calcium 7.9 L 04/03/22 03:50: WBC 12.0 H, RBC 3.37 L, Hgb 10.1 L, Hct 33.2 L, MCV 98.5 H, MCH 30.0, MCHC 30.4 L, RDW Std Deviation 51.9 H, RDW Coeff of Mere 14.4, Plt Count 375, MPV 9.9, Immature Gran % (Auto) 0.700, Neut % (Auto) 74.8 H, Lymph % (Auto) 13.5 L, [place] % (Auto) 10.0, Eos % (Auto) 0.6, Baso % (Auto) 0.4, Absolute Neuts (auto) 9.0 H, Absolute Lymphs (auto) 1.62, Nucleated RBC % 0 04/03/22 03:50: Sodium Cancelled, Potassium Cancelled, Chloride Cancelled, Carbon Dioxide Cancelled, Anion Gap Cancelled, BUN Cancelled, Creatinine Cancelled, Estim Creat Clear Calc Cancelled, Est GFR (MDRD) Af Amer Cancelled, Est GFR (MDRD) Non-Af Cancelled, BUN/Creatinine Ratio Cancelled, Glucose Cancelled, Calcium Cancelled, Total Bilirubin Cancelled, AST Cancelled, ALT Cancelled, Alkaline Phosphatase Cancelled, Total Protein Cancelled, Albumin Cancelled, Globulin Cancelled, Albumin/Globulin Ratio Cancelled 04/03/22 04:25: Sodium 132 L, Potassium 5.5 H, Chloride 93 L, Carbon Dioxide 31.0, Anion Gap 8, BUN 35 H, Creatinine 3.71 H, Estim Creat Clear Calc 20.86, Est GFR (MDRD) Af Amer 21 L, Est GFR (MDRD) Non-Af 18 L, BUN/Creatinine Ratio 9.4 L, Glucose 103, Calcium 8.2 L, Total Bilirubin 0.50, AST 91 H, ALT 94 H, Alkaline Phosphatase 103, Total Protein 7.8, Albumin 3.1 L, Globulin 4.7 H, Albumin/Globulin Ratio 0.7 L 04/03/22 09:58: POC Glucose 130 H 04/03/22 14:01: POC Glucose 148 H Radiography Diagnostic Testing: Radiology Impression Chest X-Ray 04/02/22 17:19 IMPRESSION: No acute radiographic abnormalities. Electronically Signed: Regulo Mitchell MD at 17:58 EST , Rhythm Strip Rhythm Strip: Bradycardia Rate: 29 Ectopy: PAC(s) Physical Exam Const alert and oriented x3 Resp clear to auscultation bilaterally Cardio Rhythm: abnormal rhythm GI non-tender and non-distended Auscultation: normoactive bowel sounds Extremity no clubbing, cyanosis or edema Assessment & Plan Assessment/Plan (1) ESRD (end stage renal disease) on dialysis: PLAN: Dialysis Thursday, Thursday, Thursday. dialysis tomorrow (2) Hyperkalemia: PLAN: K 5.5 dialysis tomorrow (3) Bradycardic cardiac arrest: PLAN: Status post successful cardiac resuscitation with temporary pacer placement. Hold diltiazem and metoprolol. (4) Nicotine dependence: PLAN: Patient continues to smoke (5) Dyslipidemia: (6) AVF (arteriovenous fistula): PLAN: Recently placed in March 20, 2022. No blood pressure, blood draws, or IV in his access arm.
[2022-04-03 15:50] LABS: Anion Gap 10 (5-15); BUN 42 mg/dL (7-18); BUN/Creat Ratio 9.2 RATIO (10-20); Calcium,Total 8.3 mg/dL (8.5-10.1); Chloride 91 mmol/L (98-107); Creatinine, Serum 4.55 mg/dL (0.70-1.30); EST Glomerular Filtration Rate 14 mL/min (>60); Est Glom Filt Rate - Afr Amer 17 mL/min (>60); Estimated Creatinine Clearance 17.01 ml/min; Glucose 149 mg/dL (74-106); Potassium 5.7 mmol/L (3.5-5.1); Sodium Level 131 mmol/L (136-145)
[2022-04-03] MEDS: Insulin Lispro 100 UNIT/ML INSULN.PEN SC (17:47)
[2022-04-03 18:10] LABS: Bedside Glucose 184 mg/dL (74-106)
[2022-04-03] MEDS: Atorvastatin Calcium 20 MG Tablet PO (22:21)
[2022-04-04] VITALS (13 sets, daily range): BP systolic 123–154; BP diastolic 63–91; PULSE 77–140; RESP 16–20; TEMP 36.6–37.3; O2SAT 91–95
[2022-04-04 00:06] LABS: Bedside Glucose 108 mg/dL (74-106)
[2022-04-04] MEDS: oxyCODONE 5 MG Tablet PO ×4 (03:36→20:58)
[2022-04-04] MEDS: Acetaminophen 325 MG Tablet 650 MG PO ×3 (03:37→15:44)
[2022-04-04 05:33] LABS: Mucous, Urine 0 SEEN /hpf (<or=2+); Squamous Epithelial Cells - UA 0 SEEN /hpf (0-5)
[2022-04-04 05:35] LABS: Color, Urine Yellow (Yellow); Glucose, Dipstick 100 mg/dl (Normal); Ketone-Dipstick Negative (Negative); Leukocyte Esterase-Dipstick 500 /ul (Negative); Nitrite-Dipstick Negative (Negative); Occult Blood-Urine 250 /ul (Negative); Protein-Dipstick 100 mg/dl (Negative); Urine Bilirubin Dipstick Negative (Negative); Urine Clarity Clear (Clear); Urine Urobilinogen Normal (Normal)
[2022-04-04 06:05] LABS: Bacteria 1+ /hpf (None Seen); Red Blood Cells-Urine 25-50 SEEN /hpf (0-5); White Blood Cells 10-25 SEEN /hpf (0-5)
[2022-04-04 06:26] LABS: Absolute Lymphocyte Count 1.14 X10^3/uL (0.83-4.51); Absolute Neutrophil Count 9.3 X10^3/uL (2.0-7.7); Basophil# 0.04 X10^3/uL; Basophil% 0.3 % (0-1); Eosinophil# 0.04 X10^3/uL; Eosinophils% 0.3 % (0-5); Hematocrit 32.8 % (40-54); Hemoglobin 10.3 g/dL (13.0-16.5); Lymphocyte # 1.14 X10^3/ul (0.83-4.51); Lymphocyte % 9.7 % (19-41); Mean Corp Hgb Conc 31.4 g/dL (32-36); Mean Corpuscular Hgb 30.3 pg (27.0-32.0); Mean Corpuscular Volume 96.5 fL (80-94); Mean Platelet Vol. 9.6 fl (6.2-12.0); Monocyte# 1.19 X10^3/uL; Monocyte% 10.1 % (0-10); NRBC Flagged by Analyzer 0 % (0-5); Neutrophil # 9.28 X10^3/uL (2.7-7.7); Neutrophil % 78.9 % (47-70); Platelet Count 350 K/mm3 (150-450); RBC Distribution Width CV 13.8 % (11.6-14.6); White Blood Count 11.8 K/mm3 (4.4-11.0)
[2022-04-04 06:36] LABS: International Normalized Ratio 1.3; Prothrombin Time (Protime)PT. 15.8 SECONDS (11.7-14.9)
[2022-04-04 06:45] LABS: Bedside Glucose 110 mg/dL (74-106)
[2022-04-04 06:53] LABS: ALB/GLOB Ratio 0.6 RATIO (0.9-2.4); AST(SGOT) 34 U/L (15-37); Alanine Aminotransfer ALT/SGPT 59 U/L (16-61); Albumin, Serum 2.9 g/dL (3.2-5.0); Alkaline Phosphatase 93 U/L (45-117); Anion Gap 10 (5-15); BUN 54 mg/dL (7-18); BUN/Creat Ratio 10.1 RATIO (10-20); Calcium,Total 8.3 mg/dL (8.5-10.1); Chloride 91 mmol/L (98-107); Creatinine, Serum 5.37 mg/dL (0.70-1.30); EST Glomerular Filtration Rate 11 mL/min (>60); Est Glom Filt Rate - Afr Amer 14 mL/min (>60); Estimated Creatinine Clearance 14.41 ml/min; Globulin 4.5 g/dL (2.2-4.2); Glucose 115 mg/dL (74-106); Magnesium 2.2 mg/dL (1.6-2.6); Potassium 5.8 mmol/L (3.5-5.1); Protein, Total 7.4 g/dL (6.4-8.2); Sodium Level 129 mmol/L (136-145)
[2022-04-04] MEDS: Ipratropium/Albuterol Sulfate 3 ML AMPUL.NEB INHALATION ×2 (07:11→22:32)
[2022-04-04] MEDS: 0.9% Saline Lock 10 ML Syringe IV ×2 (09:43→20:57)
[2022-04-04] MEDS: Pantoprazole Sodium 40 MG Tablet PO (09:45)
[2022-04-04] MEDS: Clopidogrel Bisulfate 75 MG Tablet PO (09:45)
[2022-04-04] MEDS: Rivaroxaban 10 MG Tablet PO (09:45)
--- NOTE | 2022-04-04 12:38 | PN.HOSP_ITS ---
Reason for Visit Reason for Visit: Chief complaint Palpitations Nausea Vomiting Subjective Subjective No significant issues overnight. Patient is still requiring supplemental oxygen and wheezing on exam. He is no further bradycardic. His only complaints are chest pain related to CPR he received prior to admission. Patient indicates he is trying to use his incentive spirometry and Acapella. Objective Data Objective Data Vital Signs: Vital Signs Temp Pulse Resp BP Pulse Ox O2 Del Method O2 Flow Rate 99.2 F H 77 18 152/83 H 92 Nasal Cannula 6 04/04/22 12:35 04/04/22 12:35 04/04/22 12:35 04/04/22 12:35 04/04/22 09:34 04/04/22 12:35 04/04/22 09:34 Oxygen Flow Rate (L/min) 6 Oxygen Delivery Method Nasal Cannula Weight: 87.2 kg Body Mass Index (BMI) 27.1 Intake & Output: Intake and Output for Last 24 Hours 04/02/22 04/03/22 04/04/22 23:59 23:59 23:59 Output Total 3000 / 3000 0 / 50 50 / 50 Balance -3000 / -3000 0 / -50 -50 / -50 Lab / Micro Data Result Diagrams: 04/04/22 05:50 04/04/22 05:50 Labs: Laboratory Results - last 24 hr 04/03/22 14:01: POC Glucose 148 H 04/03/22 14:41: Sodium 131 L, Potassium 5.7 H, Chloride 91 L, Carbon Dioxide 30.0, Anion Gap 10, BUN 42 H, Creatinine 4.55 H, Estim Creat Clear Calc 17.01, Est GFR (MDRD) Af Amer 17 L, Est GFR (MDRD) Non-Af 14 L, BUN/Creatinine Ratio 9.2 L, Glucose 149 H, Calcium 8.3 L 04/03/22 17:33: POC Glucose 184 H 04/03/22 22:20: POC Glucose 108 H 04/04/22 05:21: Urine Color Yellow, Urine Clarity Clear, Urine pH 8.0, Ur Specific [place] 1.010, Urine Protein 100 H, Urine Glucose (UA) 100 H, Urine Ketones Negative, Urine Occult Blood 250 H, Urine Nitrite Negative, Urine Bilirubin Negative, Urine Urobilinogen Normal, Ur Leukocyte Esterase 500 H, Urine RBC 25-50 SEEN, Urine WBC 10-25 SEEN, Ur Squamous Epith Cells 0 SEEN, Urine Bacteria 1+, Urine Mucus 0 SEEN 04/04/22 05:50: WBC 11.8 H, RBC 3.40 L, Hgb 10.3 L, Hct 32.8 L, MCV 96.5 H, MCH 30.3, MCHC 31.4 L, RDW Std Deviation 49.0 H, RDW Coeff of Mere 13.8, Plt Count 350, MPV 9.6, Immature Gran % (Auto) 0.700, Neut % (Auto) 78.9 H, Lymph % (Auto) 9.7 L, [place] % (Auto) 10.1 H, Eos % (Auto) 0.3, Baso % (Auto) 0.3, Absolute Neuts (auto) 9.3 H, Absolute Lymphs (auto) 1.14, Nucleated RBC % 0 04/04/22 05:50: PT 15.8 H, INR 1.3 04/04/22 05:50: Sodium 129 L, Potassium 5.8 H, Chloride 91 L, Carbon Dioxide 28.0, Anion Gap 10, BUN 54 H, Creatinine 5.37 H, Estim Creat Clear Calc 14.41, Est GFR (MDRD) Af Amer 14 L, Est GFR (MDRD) Non-Af 11 L, BUN/Creatinine Ratio 10.1, Glucose 115 H, Calcium 8.3 L, Magnesium 2.2, Total Bilirubin 0.70, AST 34, ALT 59, Alkaline Phosphatase 93, Total Protein 7.4, Albumin 2.9 L, Globulin 4.5 H, Albumin/Globulin Ratio 0.6 L 04/04/22 06:26: POC Glucose 110 H Rhythm Strip Rhythm Strip: Bradycardia Rate: 29 Ectopy: PAC(s) Physical Exam Const alert, oriented x3 and no apparent distress Constitutional Narrative: Overweight, upper middle-aged white male sitting up in bed, appears much older than stated age, appears chronically ill but not acutely toxic, pleasant, nursing at bedside, appearance is somewhat disheveled HEENT head/scalp atraumatic and moist oral mucous membranes Head and Scalp: normocephalic Resp normal respiratory effort, no retractions and no use of accessory muscles Resp Narrative: Diminished diffusely more at bases and apices, scattered end expiratory wheezes that are more harsh in the last 24 hours Auscultation: wheezes; Negative for rales or rhonchi Cardio regular rate, regular rhythm, S1 normal heart sound, S2 normal heart sound, no murmurs, no rub, no gallops and no clicks GI normal to inspection, nondistended, normoactive bowel sounds, soft to palpation and non-tender Extremity no clubbing, cyanosis or edema Extremity Narrative: 2+ pedal pulses Neuro oriented x3, moves all extremities and no focal motor deficits Neuro Narrative: Abnormal sensation bilateral distal lower extremities Speech: speech normal Psych affect normal Psych Narrative: Good eye contact, mood is good Assessment & Plan Assessment/Plan (1) Bradycardic cardiac arrest: (2) Hyperkalemia: (3) Leukocytosis: (4) Atrial flutter: (5) Hypoxia: (6) COPD with acute exacerbation: PLAN: Plan Bradycardic cardiac arrest -Resolved--> heart rates are normal and patient is no longer paced -Iatrogenic suspected with beta-asher and calcium channel asher due to ongoing tachycardic issues with his atrial flutter/patient also was markedly hyperkalemic upon presentation -Underwent urgent dialysis for hyperkalemia with potassium 7.7 on presentation -Continue hold beta-asher and calcium channel asher and await recommendations for cardiology for reinitiation -Per documentation patient does have noncompliance with renal diet which likely contributed as well -Cardiology and nephrology consulted-appreciate input Severe hyperkalemia -May be in part the etiology for his bradycardic arrest -7.7 potassium level on admission -Was treated with emergent dialysis -Prior to dialysis patient was given calcium gluconate, IV insulin, dextrose, albuterol, and Kayexalate -Potassium is 5.8 this morning -Appreciate nephrology input -Renal diet--> dietitian reviewed low potassium diet with the patient and plans on giving him literature prior to discharge Acute hypoxia secondary to acute exacerbation of COPD -Suspect the above events precipitated an exacerbation of COPD -Patient with diffuse and expiratory wheezes on exam today -Start IV Solu-Medrol -Continue pulmonary toilet with scheduled and as needed DuoNebs -I-S and Acapella encouraged and patient has been been compliant -Patient is not O2 dependent at baseline but currently on 5 L -Wean oxygen as able Leukocytosis -Suspect reactive with CPR and bradycardic arrest -Is trending down without any intervention -Repeat CBC in a.m. Atrial flutter with tachycardia -Metoprolol and Cardizem regimen were recently increased -Holding beta-asher and calcium channel asher due to bradycardia -Await input from cardiology to reinitiate any medications and for guidance with regards for treatment -Patient is currently in normal sinus rhythm with normal rates -Xarelto reinitiated -Cardiology following-appreciate input for assistance with management Chronic anemia secondary to end-stage renal disease -Counts are stable -Current hemoglobin 10.3 -Monitor clinically -Patient is currently on triple therapy with aspirin, Plavix, and Xarelto -Continue Plavix and Xarelto but would discontinue aspirin upon discharge as he is high risk for bleeding with triple therapy DM-2 -Hold oral regimen -A.m. glucose was 115 -Sliding scale -Accu-Cheks -Cardiac/carb controlled/renal diet Hyponatremia/hypochloremia -Chronic related to renal disease -Fluctuates with dialysis -Dialysis due today -Repeat lab in a.m. End-stage renal disease-HD dependent -Patient typically receives dialysis Thursday/Thursday/Thursday -HD due today -Emergent dialysis done yesterday for severe hyperkalemia -Patient has history of noncompliance with diet recommendations -Primary peeled potato inspector, Dr. Rios, is consulted and following History of DVT -Continue home Xarelto Hypertension -As needed hydralazine -Blood pressures are trending up -Add Norvasc 10 mg -Calcium channel asher and beta-asher on hold due to bradycardia -Will need to readdress once acute issues have resolved Hyperlipidemia -Continue home statin GERD -Continue home PPI History of cardiomyopathy -Per cardiology documentation will likely need coronary angiography as an outpatient -Patient follows with Dr. Cruz -Cardiology is following here-appreciate input -Outpatient work-up is in progress -No signs of decompensation at this time -Baseline EF is around 45% -Start home Plavix hold aspirin as patient is also on Xarelto -Recommend discontinuation of aspirin upon discharge Tobacco abuse -Recommend cessation -Nicotine replacement available if patient wants to utilize DVT prophylaxis -cont Xarelto -Continue SCDs CODE STATUS -Full code as verified on admission Charges/Coding Visit Charges Inpatient E&M: 66072 Subs Hosp L2
[2022-04-04 13:20] LABS: Bedside Glucose 178 mg/dL (74-106)
--- NOTE | 2022-04-04 14:42 | PCM.HOSP.N ---
Hospitalist Note I was able to discuss the case with Dr. Xiao from cardiology. He was in agreements that we should discontinue his aspirin and continue Plavix and Xarelto and avoid triple therapy if possible. He has had no recent stent placement or intervention. He said to go ahead and restart his metoprolol but at 50% of his presentation dose which would be 50 mg p.o. twice daily. This was initiated. He did have tachycardia with rates in the 140s during his dialysis prior to his metoprolol dose being given.
[2022-04-04] MEDS: Heparin 10,000 UNITS/10 ML Vial 3600 UNITS IV (15:42)
[2022-04-04] MEDS: Metoprolol Tartrate 50 MG Tablet PO (15:43)
--- NOTE | 2022-04-04 15:57 | DIALYSIS ---
Hemodialysis complete with 2.5 liters fluid removed. Pt tolerated treatment without difficulty.
[2022-04-04] MEDS: Insulin Lispro 100 UNIT/ML INSULN.PEN SC ×2 (16:49→20:57)
[2022-04-04 18:40] LABS: Bedside Glucose 160 mg/dL (74-106)
[2022-04-04] MEDS: Atorvastatin Calcium 20 MG Tablet PO (20:57)
[2022-04-04 23:01] LABS: Bedside Glucose 218 mg/dL (74-106)
[2022-04-05] VITALS (7 sets, daily range): BP systolic 135–168; BP diastolic 71–84; PULSE 110–123; RESP 18–21; TEMP 36.6–36.7; O2SAT 91–95
[2022-04-05] MEDS: hydrALAZINE 20 MG/ML Vial 10 MG IV (03:07)
[2022-04-05] MEDS: 0.9% Saline Lock 10 ML Syringe IV ×2 (03:07→06:20)
[2022-04-05 06:26] LABS: Absolute Lymphocyte Count 0.59 X10^3/uL (0.83-4.51); Absolute Neutrophil Count 13.1 X10^3/uL (2.0-7.7); Basophil# 0.01 X10^3/uL; Basophil% 0.1 % (0-1); Hemoglobin 11.5 g/dL (13.0-16.5); Lymphocyte # 0.59 X10^3/ul (0.83-4.51); Lymphocyte % 4.2 % (19-41); Mean Corp Hgb Conc 31.9 g/dL (32-36); Mean Corpuscular Hgb 30.3 pg (27.0-32.0); Mean Corpuscular Volume 94.7 fL (80-94); Mean Platelet Vol. 9.8 fl (6.2-12.0); Monocyte# 0.27 X10^3/uL; Monocyte% 1.9 % (0-10); NRBC Flagged by Analyzer 0 % (0-5); Neutrophil # 13.06 X10^3/uL (2.7-7.7); Neutrophil % 93.3 % (47-70); POSITIVE DIFFERENTIAL YES; Platelet Count 430 K/mm3 (150-450); RBC Distribution Width CV 13.8 % (11.6-14.6)
[2022-04-05] MEDS: Insulin Lispro 100 UNIT/ML INSULN.PEN SC (06:27)
[2022-04-05 06:33] LABS: Differential Indicated SCAN CRITERIA MET
[2022-04-05 06:53] LABS: Anion Gap 14 (5-15); BUN 46 mg/dL (7-18); BUN/Creat Ratio 9.8 RATIO (10-20); Calcium,Total 8.5 mg/dL (8.5-10.1); Chloride 92 mmol/L (98-107); Creatinine, Serum 4.71 mg/dL (0.70-1.30); EST Glomerular Filtration Rate 13 mL/min (>60); Est Glom Filt Rate - Afr Amer 16 mL/min (>60); Estimated Creatinine Clearance 16.43 ml/min; Glucose 184 mg/dL (74-106); Potassium 5.1 mmol/L (3.5-5.1); Sodium Level 129 mmol/L (136-145)
[2022-04-05 06:57] LABS: Differential Comment SCANNED
[2022-04-05 07:01] LABS: Bedside Glucose 186 mg/dL (74-106)
[2022-04-05] MEDS: Ipratropium/Albuterol Sulfate 3 ML AMPUL.NEB INHALATION (07:09)
[2022-04-05] MEDS: Metoprolol Tartrate 50 MG Tablet PO (07:51)
[2022-04-05] MEDS: Rivaroxaban 10 MG Tablet PO (07:52)
[2022-04-05] MEDS: Pantoprazole Sodium 40 MG Tablet PO (07:52)
[2022-04-05] MEDS: Clopidogrel Bisulfate 75 MG Tablet PO (07:52)
--- NOTE | 2022-04-05 08:27 | DCINST_ITS ---
Discharge Instructions Diet Discharge Diet: 2000 mg Sodium Diet and Renal Diet Activity Discharge Activity: Return to Normal Activity Weight Bearing Status: Weight bearing as tolerated Dressing / Incision Call your doctor if you observe: Fever of 101 or Higher, Coldness, Increased Pain, Numbness or Tingling, Change in Color, Inability to urinate, Inability to have a bowel movement, Shortness of breath, Dizziness, Fainting spells, Swelling in the ankles, Chest pain, Prolonged hiccupping, Increased palpitations (irregular heartbeat) and Calf discomfort Follow Up Care When: IN 2 WEEKS Test Results: Test results from this visit will be discussed in further detail at your follow- up appointment, if applicable. Discharge Plan Admission Admit Date/Time: 04/02/22 13:59 Primary Reason for Your Visit: Bradycardia and hyperkalemia, COPD exacerbation Attending Provider: Edison Peña Primary Care Provider: Ramona Khan Consulting Providers: Brenda Barrow ; Fei Xiao ; Josias Denny ; Montserrat Rios ; Gillian Rios Discharge Orders/Prescriptions Prescriptions: New dextromethorphan-guaifenesin [Mucinex DM] 60-1,200 mg tablet extended release 12 hr 1 tab PO Q12H Qty: 14 0RF prednisone 20 mg tablet 40 mg PO DAILY 5 Days Qty: 10 0RF albuterol sulfate 90 mcg/actuation HFA aerosol inhaler 1 inh inhalation Q6H PRN (Reason: shortness of breath or wheezing) Qty: 8.5 0RF Continued aspirin [Adult Aspirin Regimen] 81 mg tablet,delayed release (DR/EC) 81 mg PO DAILY pantoprazole 40 mg tablet,delayed release (DR/EC) 40 mg PO DAILY clopidogrel 75 mg tablet 75 mg PO DAILY Label Comments: TAKE ONE TABLET BY MOUTH DAILY AT 9AM Xarelto 10 mg tablet 10 mg PO DAILY Label Comments: TAKE 1 TABLET BY MOUTH EVERY DAY atorvastatin 20 mg tablet 20 mg PO DAILY Label Comments: TAKE ONE TABLET BY MOUTH DAILY AT 5PM Changed metoprolol tartrate 100 mg tablet 50 mg PO BID Qty: 180 3RF Rx Instructions: Hold for heart less than 60 or systolic blood pressure less than 100 mmHg. Held diltiazem HCl 120 mg capsule,extended release 24hr 120 mg PO BID Qty: 180 3RF Hold Instructions: Hold for 1 week until sees PCP Discontinued potassium chloride 20 mEq tablet extended release 20 meq PO BID Label Comments: TAKE ONE TABLET BY MOUTH TWICE DAILY @ 9am-5pm (VIAL) Referrals / Follow Up: Montserrat Rios DO [Med Staff - Consulting] - Within 1 Month Josias Denny DO [Med Staff - Active Staff] - Within 2 Weeks (Follow-up with Camille Yanes NP) Ramona Khan DO [Primary Care Provider] - Within 1 Week Fei Xiao MD [Med Staff - Active Staff] - Within 2 Weeks Disposition Disposition (needs filled in before D/C Order can be placed): Home, Self Care
--- NOTE | 2022-04-05 08:36 | DS.PCM_ITS ---
Providers Date of Admission: 04/02/22 Date of Discharge: 04/05/22 Primary Care Physician: Dr. Ramona Khan, DO Consultations 04/02/22 13:32 Consult: Nephrology Routine Consulting Provider: Montserrat Rios Reason for Consult: Severe Hyperkalemia EMERGENT Consult: Yes MD Notified: Yes Date Notified: 04/02/22 Time Notified: 13:32 Method of Notification: called 04/02/22 14:34 Consult: Cardiology Routine Consulting Provider: Fei Xiao Reason for Consult: Bradycardic cardiac arrest, hyperkalemia EMERGENT Consult: Yes MD Notified: Yes Date Notified: 04/02/22 Time Notified: 14:00 Method of Notification: ED Physician Initiated Consult: Food Service Utility Worker / Pulmonary Medicine Routine Consulting Provider: Josias Denny Reason for Consult: Bradycardic cardiac arrest, severe hyperkalemia EMERGENT Consult: No MD Notified: Yes Date Notified: 04/02/22 Time Notified: 14:00 Method of Notification: Text Reason For Visit: BRADYCARDIC CARDIAC ARREST, HYPERKALEMIA Diagnosis Discharge Diagnosis (1) ESRD (end stage renal disease) on dialysis: Status: Acute Code(s): N18.6 - End stage renal disease; Z99.2 - Dependence on renal dialysis (2) Hyperkalemia: Status: Acute Code(s): E87.5 - Hyperkalemia (3) Bradycardic cardiac arrest: Status: Acute Code(s): R00.1 - Bradycardia, unspecified; I46.2 - Cardiac arrest due to underlying cardiac condition (4) Nicotine dependence: Status: Acute Code(s): F17.200 - Nicotine dependence, unspecified, uncomplicated (5) Dyslipidemia: Status: Acute Code(s): E78.5 - Hyperlipidemia, unspecified (6) AVF (arteriovenous fistula): Status: Acute Code(s): I77.0 - Arteriovenous fistula, acquired Plan This 66-year-old gentleman with multiple comorbidities was admitted with bradycardic, heart rate 20s during dialysis and short of breath. He was also feeling nauseous, sweating lightheaded but denied chest pain pressure or tightness, lightheadedness. His further hospital course as mentioned below Bradycardic cardiac arrest: Patient heart rate was 20s but in ED given atropine but very soon went into asystole and therefore patient had CPR ROSC and transvenous pacemaker. Bradycardia and cardiac arrest resolved. Iatrogenic from beta-asher calcium channel asher with history of atrial flutter was complicated by hyperkalemia, potassium 7.7. Screen Stretcher was consulted. Initia lly beta-asher was included asher was held but heart rate started going up in the 120s therefore metoprolol started 50 mg twice daily. Hold diltiazem. Leukocytosis from bradycardic arrest and CPR resolved. History of atrial flutter with tachycardia: Patient dose of metoprolol Cardizem was increased simply increased. Patient also on triple therapy of aspirin Plavix and Xarelto. Aspirin discontinued and advised to continue. Severe hyperkalemia related to missed hemodialysis. Patient was hemodialyzed, last session yesterday. He also had hyperkalemia cocktail and Kayexalate. Was seen by enamel machine operator. Reinforced hemodialysis on Thursday and Thursday and renal diet. Acute hypoxia secondary to acute exacerbation of COPD: Patient was treated with IV Solu-Medrol, bronchodilator, incentive spirometry and PEP. Patient was on 5 L oxygen yesterday but hypoxia resolved after hemodialysis. Acute hypoxia resolved. Discussed with case management patient has an oxygen concentrator at home from his . Prescription for albuterol, Mucinex DM and burst therapy of prednisone given Chronic anemia secondary to end-stage renal disease -Counts are stable -Current hemoglobin 10.3 -Monitor clinically -Patient is currently on triple therapy with aspirin, Plavix, and Xarelto -Continue Plavix and Xarelto but would discontinue aspirin upon discharge as he is high risk for bleeding with triple therapy DM-2 -Hold oral regimen -A.m. glucose was 115 -Sliding scale -Accu-Cheks -Cardiac/carb controlled/renal diet Hyponatremia/hypochloremia -Chronic related to renal disease -Fluctuates with dialysis -Dialysis due today -Repeat lab in a.m. End-stage renal disease-HD dependent -Patient typically receives dialysis Thursday/Thursday/Thursday -HD due today -Emergent dialysis done yesterday for severe hyperkalemia -Patient has history of noncompliance with diet recommendations -Primary enamel machine operator, Dr. Rios, is consulted and following History of DVT -Continue home Xarelto Hypertension -As needed hydralazine BP fluctuates. Advised to follow-up with PCP Hyperlipidemia -Continue home statin GERD -Continue home PPI History of cardiomyopathy -Per cardiology documentation will likely need coronary angiography as an outpatient -Patient follows with Dr. Cruz -Cardiology is following here-appreciate input -Outpatient work-up is in progress -No signs of decompensation at this time -Baseline EF is around 45% -Recommend discontinuation of aspirin upon discharge Tobacco abuse -Recommend cessation -Nicotine replacement available if patient wants to utilize DVT prophylaxis -cont Xarelto -Continue SCDs CODE STATUS -Full code as verified on admission Medications at Discharge Home Medications pantoprazole 40 mg tablet,delayed release 40 mg PO DAILY 10/18/21 rivaroxaban 10 mg tablet (Xarelto) 10 mg PO DAILY 11/06/21 diltiazem HCl 120 mg capsule,extended release 24 hr 120 mg PO BID #180 caps 12/19/21 clopidogrel 75 mg tablet 75 mg PO DAILY 01/30/22 atorvastatin 20 mg tablet 20 mg PO DAILY 04/02/22 albuterol sulfate 90 mcg/actuation aerosol inhaler 1 inh inhalation Q6H PRN shortness of breath or wheezing #8.5 grams 04/05/22 dextromethorphan-guaifenesin ER 60 mg-1,200 mg tab,extend release,12hr (Mucinex DM) 1 tab PO Q12H #14 tabs 04/05/22 metoprolol tartrate 100 mg tablet 50 mg PO BID #180 tabs 04/05/22 prednisone 20 mg tablet 40 mg PO DAILY 5 days #10 tabs 04/05/22 Physical Exam Narrative Seen and examined. Patient dressed up sitting in the wheelchair and ready to leave the hospital. He states his breathing is better, almost back to the baseline. Occasional wheezing otherwise not short of breath or dyspneic. He was on 4 L of oxygen yesterday but not on oxygen today, hypoxia resolved. He had hemodialysis yesterday Heart rate, 123. He took off the monitor. Patient admitted with bradycardic arrest and hyperkalemia from missing hemodialysis. Physical exam General: Alert, Oriented x3, Cooperative HEENT: Atraumatic, PERRLA, EOMI, Normocephalic Oral: Oral mucosa moist. No Gingival or Mucosal Lesions/ Ulcerations Neck: Right-sided permacath. Supple, No JVD, Negative Carotid Bruits Lungs: Air entry diminished in bilateral lung bases. Mild occasional rhonchi. No crepitation. No tachypnea or hypoxia. Cardiovascular: Regular rate, Regular Rhythm, Normal S1, Normal S2, No murmurs Abdomen: Bowel Sounds Present, Soft, Non Tender, Non-Distended. Large pelvic fat lump. : No renal angle tenderness. No suprapubic tenderness. Extremities: Left extremity fresh AV fistula surgical wound. Healthy wound no purulent discharge. No edema, Capillary Refill Less than 3 Seconds Skin: No rashes, No breakdown Musculoskeletal: Muscle strength 5/5 at major joints. No Tenderness to P alpation of Joints or Extremities Neurological: Cranial nerves II-XII grossly intact, DTR 2+/4l, Neuro grossly intact Psych/Mental Status: Normal Affect, Appropriate. Weight / BMI Weight Weight: 193 lb 5.526 oz Body Mass Index (BMI) 27.1 ABG / Lab / Microbiology Data Result Diagrams: 04/05/22 06:10 04/05/22 06:10 Laboratory: Laboratory Results - last 24 hr 04/04/22 12:32: POC Glucose 178 H 04/04/22 16:47: POC Glucose 160 H 04/04/22 20:51: POC Glucose 218 H 04/05/22 06:10: WBC 14.0 H, RBC 3.80 L, Hgb 11.5 L, Hct 36.0 L, MCV 94.7 H, MCH 30.3, MCHC 31.9 L, RDW Std Deviation 48.0 H, RDW Coeff of Mere 13.8, Plt Count 430, MPV 9.8, Immature Gran % (Auto) 0.500, Neut % (Auto) 93.3 H, Lymph % (Auto) 4.2 L, Dougherty % (Auto) 1.9, Eos % (Auto) 0.0, Baso % (Auto) 0.1, Absolute Neuts (auto) 13.1 H, Absolute Lymphs (auto) 0.59 L, Nucleated RBC % 0, Differential Comment SCANNED 04/05/22 06:10: Sodium 129 L, Potassium 5.1, Chloride 92 L, Carbon Dioxide 23.0, Anion Gap 14, BUN 46 H, Creatinine 4.71 H, Estim Creat Clear Calc 16.43, Est GFR (MDRD) Af Amer 16 L, Est GFR (MDRD) Non-Af 13 L, BUN/Creatinine Ratio 9.8 L, Glucose 184 H, Calcium 8.5 04/05/22 06:25: POC Glucose 186 H Microbiology: Microbiology 04/04/22 15:55 Nasal Secretion SARS-CoV-2 & FLU Antigen (Rapid) - Final 04/04/22 14:15 Mucosa - Nasopharyngeal Respiratory Panel (PCR) - Preliminary D/C Instructions Discharge Diet: 2000 mg Sodium Diet and Renal Diet Weight Bearing Status: Weight bearing as tolerated Call your doctor if you observe: Fever of 101 or Higher, Coldness, Increased Pain, Numbness or Tingling, Change in Color, Inability to urinate, Inability to have a bowel movement, Shortness of breath, Dizziness, Fainting spells, Swelling in the ankles, Chest pain, Prolonged hiccupping, Increased palpitations (irregular heartbeat) and Calf discomfort When: IN 2 WEEKS Meaningful Use Info Meaningful Use Diagnoses (Choose all that apply): None applicable Discharge Plan Admission Admit Date/Time: 04/02/22 13:59 Primary Reason for Your Visit: Bradycardia and hyperkalemia, COPD exacerbation Attending Provider: Edison Peña Primary Care Provider: Ramona Khan Consulting Providers: Brenda Barrow ; Fei Xiao ; Josias Denny ; Montserrat Rios ; Gillian Rios Discharge Orders/Prescriptions Prescriptions: New dextromethorphan-guaifenesin [Mucinex DM] 60-1,200 mg tablet extended release 12 hr 1 tab PO Q12H Qty: 14 0RF prednisone 20 mg tablet 40 mg PO DAILY 5 Days Qty: 10 0RF albuterol sulfate 90 mcg/actuation HFA aerosol inhaler 1 inh inhalation Q6H PRN (Reason: shortness of breath or wheezing) Qty: 8.5 0RF Continued pantoprazole 40 mg tablet,delayed release (DR/EC) 40 mg PO DAILY clopidogrel 75 mg tablet 75 mg PO DAILY Label Comments: TAKE ONE TABLET BY MOUTH DAILY AT 9AM Xarelto 10 mg tablet 10 mg PO DAILY Label Comments: TAKE 1 TABLET BY MOUTH EVERY DAY atorvastatin 20 mg tablet 20 mg PO DAILY Label Comments: TAKE ONE TABLET BY MOUTH DAILY AT 5PM Changed metoprolol tartrate 100 mg tablet 50 mg PO BID Qty: 180 3RF Rx Instructions: Hold for heart less than 60 or systolic blood pressure less than 100 mmHg. Held diltiazem HCl 120 mg capsule,extended release 24hr 120 mg PO BID Qty: 180 3RF Hold Instructions: Hold for 1 week until sees PCP Discontinued aspirin [Adult Aspirin Regimen] 81 mg tablet,delayed release (DR/EC) 81 mg PO DAILY potassium chloride 20 mEq tablet extended release 20 meq PO BID Label Comments: TAKE ONE TABLET BY MOUTH TWICE DAILY @ 9am-5pm (VIAL) Referrals / Follow Up: Montserrat Rios DO [Med Staff - Consulting] - Within 1 Month Josias Denny DO [Med Staff - Active Staff] - Within 2 Weeks (Follow-up with Camille Yanes NP) Ramona Khan DO [Primary Care Provider] - Within 1 Week Fei Xiao MD [Med Staff - Active Staff] - Within 2 Weeks Disposition Disposition (needs filled in before D/C Order can be placed): Home, Self Care Charges/Coding Visit Charges Inpatient E&M: 27558 Disch Hosp >30min
--- NOTE | 2022-04-05 09:10 | NURSING ---
went to set up home o2. Patient refused states he will turn them away at the door'
== END 2022-04-05 09:26 | disposition home or self-care (01) | DRG 260 ==
LOC: ED 13:11 → ICU 14:30 → PCU 04-03 12:53
PROVIDERS: Internal Medicine; Admitting Provider Family Medicine; Emergency Provider Emergency Medicine; PCP Family Medicine; Referring Provider Internal Medicine Cardiovascular Disease; Visit Provider Internal Medicine
DX: R00.1 Bradycardia, unspecified (principal); N18.6 End stage renal disease; I46.2 Cardiac arrest due to underlying cardiac condition; I12.0 Hypertensive chronic kidney disease with stage 5 chronic kidney disease or end stage renal disease; J44.1 Chronic obstructive pulmonary disease with (acute) exacerbation; D63.1 Anemia in chronic kidney disease; I48.92 Unspecified atrial flutter; E11.22 Type 2 diabetes mellitus with diabetic chronic kidney disease; Z99.2 Dependence on renal dialysis; E87.5 Hyperkalemia; F17.210 Nicotine dependence, cigarettes, uncomplicated; E78.5 Hyperlipidemia, unspecified; K21.9 Gastro-esophageal reflux disease without esophagitis; D72.829 Elevated white blood cell count, unspecified; T46.1X5A Adverse effect of calcium-channel blockers, initial encounter; T44.7X5A Adverse effect of beta-adrenoreceptor antagonists, initial encounter; R09.02 Hypoxemia; Z91.119 Patient's noncompliance with dietary regimen due to unspecified reason; Z79.01 Long term (current) use of anticoagulants; Z79.02 Long term (current) use of antithrombotics/antiplatelets; Z79.84 Long term (current) use of oral hypoglycemic drugs; Z79.899 Other long term (current) drug therapy; Z86.718 Personal history of other venous thrombosis and embolism; Z86.73 Personal history of transient ischemic attack (TIA), and cerebral infarction without residual deficits
CPT/HCPCS: 33210; 36415; 71045; 80048; 80053; 80069; 81001; 82962; 83735; 84443; 84484; 85025; 85610; 87428; 87633; 90937; 93005; 94640; 94668; 97162; 97166; 97802; 99252; 99285; 99406; J7030; A4216; C1894; G0257; G0463; J0610; J1610; J2405

== ENCOUNTER 2022-08-25 10:52 | Inpatient (IN) | payer MEDICARE, MEDICAID, SELFPAY ==
[2022-08-25] VITALS (31 sets, daily range): BP systolic 111–251; BP diastolic 45–84; PULSE 36–91; RESP 11–24; TEMP 35.6–36.6; O2SAT 87–100; BMI 31.2; BMI 31.1; BMI 33.0; BMI 30.9
--- NOTE | 2022-08-25 12:14 | EKG12_ITS ---
Test Reason : LEMUEL Blood Pressure : / mmHG Vent. Rate : 043 BPM Atrial Rate : 043 BPM P-R Int : 274 ms QRS Dur : 096 ms QT Int : 498 ms P-R-T Axes : 099 002 083 degrees QTc Int : 420 ms Atrial tachycardia with 4:1 block Abnormal ECG Confirmed by IDANIA BLANCHARD, HARDEEP ([id number]), school photograph editor JOHN RIDDLE ([id number]) on 08/27/2022 11:28:58 AM Referred By: OMKAR Confirmed By:JESS EMERSON MD
[2022-08-25 12:23] LABS: Absolute Lymphocyte Count 1.59 X10^3/uL (0.83-4.51); Absolute Neutrophil Count 12.5 X10^3/uL (2.0-7.7); Basophil# 0.06 X10^3/uL; Basophil% 0.4 % (0-1); Eosinophil# 0.08 X10^3/uL; Eosinophils% 0.5 % (0-5); Hematocrit 36.7 % (40-54); Hemoglobin 11.4 g/dL (13.0-16.5); Lymphocyte # 1.59 X10^3/ul (0.83-4.51); Lymphocyte % 10.4 % (19-41); Mean Corp Hgb Conc 31.1 g/dL (32-36); Mean Corpuscular Hgb 31.9 pg (27.0-32.0); Mean Corpuscular Volume 102.8 fL (80-94); Mean Platelet Vol. 11.4 fl (6.2-12.0); Monocyte# 1.02 X10^3/uL; Monocyte% 6.6 % (0-10); NRBC Flagged by Analyzer 0 % (0-5); Neutrophil # 12.52 X10^3/uL (2.7-7.7); Neutrophil % 81.6 % (47-70); Platelet Count 324 K/mm3 (150-450); RBC Distribution Width SD 53.1 fl (35.1-43.9); Red Blood Count 3.57 M/mm3 (4.6-6.2); White Blood Count 15.3 K/mm3 (4.4-11.0)
--- NOTE | 2022-08-25 12:28 | RAD_ITS ---
STUDY: X-RAY CHEST REASON FOR EXAM: Male, 66 years old. sob TECHNIQUE: Single AP portable view of the chest. COMPARISON: Comparison is made with prior study of April 02, 2022. FINDINGS: A right-sided double-lumen catheter is seen with the tip at the junction of the superior vena cava and right atrium. EKG electrodes are seen. Vascular congestion and mild degree of CHF. There is no demonstrated pleural abnormality. There is borderline cardiomegaly. Normal mediastinum and didier. Normal visualized pulmonary arteries. Normal visualized aortic arch and descending thoracic aorta. There are diffuse degenerative changes of the visualized thoracic spine. Normal visualized ribs, clavicles, and shoulders. There is no demonstrated abnormality of the visualized soft tissue structures of the upper abdomen. RAD/Chest 1 View (Portable) IMPRESSION: Vascular congestion and a mild degree of CHF. Electronically Signed: Karlo Marley MD at 12:43 EDT ,
[2022-08-25] MEDS: Ondansetron 4 MG/2 ML Vial IV (12:32)
[2022-08-25] MEDS: Ipratropium/Albuterol Sulfate 3 ML AMPUL.NEB INHALATION ×2 (12:49→19:29)
--- NOTE | 2022-08-25 12:49 | EDS_ITS ---
HPI History of Present Illness Chief Complaint: Nausea/Vomiting Informant: patient Narrative Narrative: Nausea and vomiting is started this morning when he woke up. He went to dialysis and instead of doing a treatment they sent him here, according to the patient because he was not feeling well and more short of breath than usual. He is not on home oxygen he has COPD. Per EMS, bradycardic but patient asymptomatic with this no lightheadedness or syncope today. No chest discomfort. No swelling in his legs compared to usual. No fevers or chills that he knows of. Coughing more but not bringing anything up. [facility] Medical History Atrial flutter Cardiomyopathy Chronic anemia Chronic hyponatremia COPD (chronic obstructive pulmonary disease) CVA (cerebral vascular accident) Diabetes 1.5, managed as type 2 Dyslipidemia End stage renal disease ESRD (end stage renal disease) on dialysis Essential hypertension History of renal dialysis Hyperlipidemia Hypertension Nicotine dependence Sensory disorder Smoker Thromboembolism Walker as ambulation aid Home Medications pantoprazole 40 mg tablet,delayed release 40 mg PO DAILY 10/18/21 [History Last Taken 03/20/22 05:30] rivaroxaban 10 mg tablet (Xarelto) 10 mg PO DAILY 11/06/21 [History Last Taken 03/16/22] atorvastatin 20 mg tablet 20 mg PO DAILY 04/02/22 [History Last Taken Unknown] albuterol sulfate 90 mcg/actuation aerosol inhaler 1 inh inhalation Q6H PRN shortness of breath or wheezing #8.5 grams 04/05/22 [Rx Last Taken Unknown] aspirin 81 mg tablet,delayed release (Adult Low Dose Aspirin) 81 mg PO DAILY 06/24/22 [History Last Taken Unknown] diltiazem HCl 120 mg capsule,extended release 24 hr 120 mg PO DAILY 06/24/22 [History Last Taken Unknown] lisinopril 10 mg tablet 10 mg PO DAILY 06/24/22 [History Last Taken Unknown] metoprolol tartrate 25 mg tablet 50 mg (2 x 25 mg) PO BID Dose decreased for low HR #60 tabs 06/24/22 [Rx Last Taken Unknown] midodrine 5 mg tablet 5 mg PO .MWF 06/24/22 [History Last Taken Unknown] Allergy/AdvReac Type Severity Reaction Status Date / Time No Known Allergies Allergy Verified 06/24/22 14:24 Family History Mother Heart disease Father Heart disease Surgical History History of ankle surgery Social History Smoking Status: Current every day smoker tobacco type: cigarettes alcohol intake: former substance use type: does not use caffeine: No EXAM Physical Exam Const Vital Signs: 08/25/22 10:53 Temperature 96.6 F L Temperature Source Temporal Pulse Rate 44 L Respiratory Rate 21 H Pulse Ox 94 Oxygen Delivery Method Nasal Cannula Oxygen Flow Rate (L/min) 4 MDM MDM Lab Data Labs: Laboratory Results - last 24 hr 08/25/22 11:35 WBC 15.3 H RBC 3.57 L Hgb 11.4 L Hct 36.7 L MCV 102.8 H MCH 31.9 MCHC 31.1 L RDW Std Deviation 53.1 H RDW Coeff of Mere 14.0 Plt Count 324 MPV 11.4 Immature Gran % (Auto) 0.500 Neut % (Auto) 81.6 H Lymph % (Auto) 10.4 L [place] % (Auto) 6.6 Eos % (Auto) 0.5 Baso % (Auto) 0.4 Absolute Neuts (auto) 12.5 H Absolute Lymphs (auto) 1.59 Nucleated RBC % 0 Radiography Diagnostic Testing: Clinical Impression(s) from Imaging Studies Chest X-Ray 08/25/22 12:28 IMPRESSION: Vascular congestion and a mild degree of CHF. Electronically Signed: Karlo Marley MD at 12:43 EDT , Discharge Plan Triage Chief Complaint: Nausea/Vomiting ED Provider: Phil Rodriguez Dx/Rx/DC Orders Prescriptions: No Action pantoprazole 40 mg tablet,delayed release (DR/EC) 40 mg PO DAILY aspirin [Adult Low Dose Aspirin] 81 mg tablet,delayed release (DR/EC) 81 mg PO DAILY lisinopril 10 mg tablet 10 mg PO DAILY midodrine 5 mg tablet 5 mg PO .MWF Rx Instructions: do not give last dose of day after 6PM or within 4 hrs of bedtime diltiazem HCl 120 mg capsule,extended release 24hr 120 mg PO DAILY Hold Instructions: Hold for 1 week until sees PCP metoprolol tartrate 25 mg tablet 50 mg PO BID Qty: 60 11RF Xarelto 10 mg tablet 10 mg PO DAILY Patient Comments: TAKE 1 TABLET BY MOUTH EVERY DAY atorvastatin 20 mg tablet 20 mg PO DAILY Patient Comments: TAKE ONE TABLET BY MOUTH DAILY AT 5PM albuterol sulfate 90 mcg/actuation HFA aerosol inhaler 1 inh inhalation Q6H PRN (Reason: shortness of breath or wheezing) Qty: 8.5 0RF Primary Care Provider: Ramona Khan Referrals: Ramona Khan DO [Primary Care Provider] -
--- NOTE | 2022-08-25 12:49 | EX.ED.DYSGE1 ---
HPI History of Present Illness Chief Complaint: Nausea/Vomiting Informant: patient Narrative Narrative: Nausea and vomiting is started this morning when he woke up. He went to dialysis and instead of doing a treatment they sent him here, according to the patient because he was not feeling well and more short of breath than usual. He is not on home oxygen he has COPD. Per EMS, bradycardic but patient asymptomatic with this no lightheadedness or syncope today. No chest discomfort. No swelling in his legs compared to usual. No fevers or chills that he knows of. Coughing more but not bringing anything up. [facility] Medical History Atrial flutter Cardiomyopathy Chronic anemia Chronic hyponatremia COPD (chronic obstructive pulmonary disease) CVA (cerebral vascular accident) Diabetes 1.5, managed as type 2 Dyslipidemia End stage renal disease ESRD (end stage renal disease) on dialysis Essential hypertension History of renal dialysis Hyperlipidemia Hypertension Nicotine dependence Sensory disorder Smoker Thromboembolism Walker as ambulation aid Home Medications pantoprazole 40 mg tablet,delayed release 40 mg PO DAILY 10/18/21 [History Last Taken 03/20/22 05:30] rivaroxaban 10 mg tablet (Xarelto) 10 mg PO DAILY 11/06/21 [History Last Taken 08/25/22] atorvastatin 20 mg tablet 20 mg PO QPM CHOLESTEROL 04/02/22 [History Last Taken 08/25/22] albuterol sulfate 90 mcg/actuation aerosol inhaler 1 inh inhalation Q6H PRN shortness of breath or wheezing #8.5 grams 04/05/22 [Rx Last Taken Unknown] aspirin 81 mg tablet,delayed release (Adult Low Dose Aspirin) 81 mg PO DAILY HEART HEALTH 06/24/22 [History Last Taken 08/25/22] diltiazem HCl 120 mg capsule,extended release 24 hr 120 mg PO DAILY BLOOD PRESSURE 06/24/22 [History Last Taken 08/25/22] lisinopril 10 mg tablet 10 mg PO DAILY 06/24/22 [History Last Taken Unknown] metoprolol tartrate 25 mg tablet 50 mg (2 x 25 mg) PO BID Dose decreased for low HR #60 tabs 06/24/22 [Rx Last Taken Unknown] midodrine 5 mg tablet 5 mg PO DAILY 06/24/22 [History Last Taken 08/25/22] calcium acetate(phosphat bind) 667 mg capsule 1,334 mg PO TIDCM SUPPLEMENT 08/25/22 [History Last Taken 08/25/22] lisinopril 30 mg tablet 30 mg PO DAILY BLOOD PRESSURE 08/25/22 [History Last Taken 08/24/22] metoprolol tartrate 100 mg tablet 50 mg PO DAILY BLOOD PRESSURE 08/25/22 [History Last Taken 08/25/22] pediatric multivitamin (Flintstones Multivitamin chewable tablet) 1 tab PO DAILY 08/25/22 [History Last Taken 08/25/22] potassium chloride 20 mEq tablet,extended release 20 meq PO BID SUPPLEMENT 08/25/22 [History Last Taken 08/25/22] Allergy/AdvReac Type Severity Reaction Status Date / Time No Known Allergies Allergy Verified 06/24/22 14:24 Family History Mother Heart disease Father Heart disease Surgical History History of ankle surgery Social History Smoking Status: Current every day smoker tobacco type: cigarettes alcohol intake: former substance use type: does not use caffeine: No ROS ROS ED Constitutional Constitutional ED: Denies chills or fever(s) Eyes Eyes: Denies change in vision or diplopia ENT ENT ED: Denies rhinorrhea or sore throat Cardiovascular Cardiovascular: Denies chest pain, leg edema or palpitations Respiratory/Chest Respiratory/Chest: Reports cough and dyspnea Gastrointestinal Gastrointestinal: Denies abdominal pain, diarrhea, nausea or vomiting Musculoskeletal Musculoskeletal: Denies back pain or neck pain Integumentary Denies abscess or rash Neurologic Neurologic: Denies headache(s), paresthesias or weakness Psychiatric Psychiatric: Denies anxiety or suicidal thoughts EXAM Physical Exam Const Vital Signs: 08/25/22 10:53 08/25/22 12:53 08/25/22 13:40 Temperature 96.6 F L Temperature Source Temporal Pulse Rate 44 L 70 Respiratory Rate 21 H 18 Respiratory Pattern Normal Blood Pressure Blood Pressure Mean Pulse Ox 94 87 Oxygen Delivery Method Nasal Cannula Room Air Oxygen Flow Rate (L/min) 4 08/25/22 13:41 08/25/22 14:01 Temperature 96.1 F L Temperature Source Temporal Pulse Rate 36 L 37 L Respiratory Rate 17 11 L Respiratory Pattern Blood Pressure 128/60 H 127/64 H Blood Pressure Mean 82 85 Pulse Ox 94 94 Oxygen Delivery Method Nasal Cannula Nasal Cannula Oxygen Flow Rate (L/min) 2 2 Positive well nourished and well developed General Appearance ED: well developed and NAD HEENT Reports moist mucous membranes normocephalic and atraumatic Eyes PERRL and EOMs intact bilaterally Neck full ROM and supple Resp Resp Narrative: Tachypnea, coarse breath sounds bilaterally worse at the bases, trachea midline equal breath sounds bilaterally Cardio regular rate, regular rhythm and no murmurs GI non-tender and non-distended Auscultation: normoactive bowel sounds Palpation: soft Back/Spine no CVA tenderness General Back: other FROM Extremity normal to inspection General Extremety ED: Negative for edema, pulses abnormal or tenderness General Extremity: Negative for edema or pulses abnormal Neuro oriented x3, CN's II-XII intact bilaterally and no sensory deficits noted Sensorium / Orientation: awake and alert Motor Exam: strength 5/5 throughout Skin no rashes or lesions noted and no wounds MDM MDM MDM Narrative Medical decision making narrative: Chest x-ray 1 view appears to be pulmonary edema. I reviewed his last echo from January of last year. Shows an EF of 60%, not severe congestive heart failure but that appears to be what is going on here is fluid overload. He felt much better with regards to breathing after the nebulizer treatments, and I took his oxygen off which he does not wear at home, he desatted to the mid 80s very quickly on room air. On 3 L nasal cannula he is 91-92%. Discussed with hospitalist as well as Dr. Rios his medical staff services coordinator who will get him dialyzed here sooner than later. With regards to his bradycardia I suspect this may be related to his hyperkalemia. He appears to be in a high grade block. He has 4: 1 conduction. Also in the differential here is atrial flutter which he apparently has a history of, with decreased AV conduction. With a pulse in the low 30s he is mentating well and states he feels fine. We will treat him medically for hyperkalemia. History & Record Review Additional record(s) reviewed:: Prior outpatient record Lab Data Attestation: I reviewed the patient's lab results. Labs: Laboratory Results - last 24 hr 08/25/22 11:35 WBC 15.3 H RBC 3.57 L Hgb 11.4 L Hct 36.7 L MCV 102.8 H MCH 31.9 MCHC 31.1 L RDW Std Deviation 53.1 H RDW Coeff of Mere 14.0 Plt Count 324 MPV 11.4 Immature Gran % (Auto) 0.500 Neut % (Auto) 81.6 H Lymph % (Auto) 10.4 L [place] % (Auto) 6.6 Eos % (Auto) 0.5 Baso % (Auto) 0.4 Absolute Neuts (auto) 12.5 H Absolute Lymphs (auto) 1.59 Nucleated RBC % 0 Sodium 130 L Potassium 8.1 H* Chloride 94 L Carbon Dioxide 27.0 Anion Gap 9 BUN 96 H Creatinine 7.24 H Estim Creat Clear Calc 10.69 Est GFR (MDRD) Af Amer 10 L Est GFR (MDRD) Non-Af 8 L BUN/Creatinine Ratio 13.3 Glucose 229 H Calcium 8.9 Troponin I High Sens 26 Radiography Chest X-Ray - ED: 1 View, Read by ED Physician and CHF Diagnostic Testing: Clinical Impression(s) from Imaging Studies Chest X-Ray 08/25/22 12:28 IMPRESSION: Vascular congestion and a mild degree of CHF. Electronically Signed: Karlo Marley MD at 12:43 EDT Reading Location ID and State: [address] [place] [address] , Service support , Rhythm Strip Rhythm Strip: Sinus Rhythm Rate: 37 Ectopy: None EKG Initial EKG: Attestation: I personally reviewed and interpreted this EKG as follows: Comments: Narrow complex bradycardia with high degree AV block, 4: 1 conduction Prior EKG tracings: available for review Prior: Changed Critical Care Time Critical Care Time: Yes Critical care time (excluding procedures): 30-74 minutes (40 min), Including time spent:, Discussing w/Patient &/or Family/Dispatcher [employer], Discussing w/Consultants, Arranging Admission or Transfer and Performing Direct Patient Care at Bedside Discharge Plan Dx/Rx/DC Orders Clinical Impression: Acute pulmonary edema, End stage renal disease, Hypoxemia, Hyperkalemia, diminished renal excretion Disposition Disposition: Acute Care Hospital [facility] Discharge Date/Time: 08/25/22 15:12
[2022-08-25] MEDS: Albuterol 2.5 MG/3 ML VIAL.NEB. INHALATION (12:50)
[2022-08-25 12:52] LABS: Anion Gap 9 (5-15); BUN 96 mg/dL (7-18); BUN/Creat Ratio 13.3 RATIO (10-20); Calcium,Total 8.9 mg/dL (8.5-10.1); Chloride 94 mmol/L (98-107); Creatinine, Serum 7.24 mg/dL (0.70-1.30); EST Glomerular Filtration Rate 8 mL/min (>60); Est Glom Filt Rate - Afr Amer 10 mL/min (>60); Estimated Creatinine Clearance 10.69 ml/min; Glucose 229 mg/dL (74-106); Potassium 8.1 mmol/L (3.5-5.1); Sodium Level 130 mmol/L (136-145); Troponin-I HS 26 pg/mL (3.0-78.0)
--- NOTE | 2022-08-25 14:25 | ED.RN ---
CALLED PHARMACY FOR MEDS.
--- NOTE | 2022-08-25 14:39 | PCM.HP.STD ---
HPI - General General Date of Admission: 08/25/22 Date of Service: 08/25/22 Chief Complaint: Nausea HPI Narrative JOHN SAHU, is a 66 M with end-stage renal disease on dialysis Thursday/Thursday/Thursday, COPD, a flutter, VTE, hypertension, tobacco use who presented to [facility] 08/25/2022 from dialysis due to increasing shortness of breath as well as nausea. He reports this has been going on off and on for a week. In the ED he was found to have heart rate from 30s to 50s but asymptomatic, chest x-ray with pulmonary congestion suggestive of fluid overload, potassium of 8.1, BUN 96, creatinine 7.24. Troponin 26. Hospitalist consulted for admission. Patient reports he is already feeling somewhat better in the ED especially from a breathing perspective. Denies any changes in his bowels, not actively coughing at this time, no chest pain, dizziness. Other than the nausea did not voice any other complaints. [facility] Medical History Atrial flutter Cardiomyopathy Chronic anemia Chronic hyponatremia COPD (chronic obstructive pulmonary disease) CVA (cerebral vascular accident) Diabetes 1.5, managed as type 2 Dyslipidemia End stage renal disease ESRD (end stage renal disease) on dialysis Essential hypertension History of renal dialysis Hyperlipidemia Hypertension Nicotine dependence Sensory disorder Smoker Thromboembolism Walker as ambulation aid Home Medications pantoprazole 40 mg tablet,delayed release 40 mg PO DAILY 10/18/21 [History Last Taken 03/20/22 05:30] rivaroxaban 10 mg tablet (Xarelto) 10 mg PO DAILY 11/06/21 [History Last Taken 08/25/22] atorvastatin 20 mg tablet 20 mg PO QPM CHOLESTEROL 04/02/22 [History Last Taken 08/25/22] albuterol sulfate 90 mcg/actuation aerosol inhaler 1 inh inhalation Q6H PRN shortness of breath or wheezing #8.5 grams 04/05/22 [Rx Last Taken Unknown] aspirin 81 mg tablet,delayed release (Adult Low Dose Aspirin) 81 mg PO DAILY [facility]ART HEALTH 06/24/22 [History Last Taken 08/25/22] diltiazem HCl 120 mg capsule,extended release 24 hr 120 mg PO DAILY BLOOD PRESSURE 06/24/22 [History Last Taken 08/25/22] lisinopril 10 mg tablet 10 mg PO DAILY 06/24/22 [History Last Taken Unknown] metoprolol tartrate 25 mg tablet 50 mg (2 x 25 mg) PO BID Dose decreased for low HR #60 tabs 06/24/22 [Rx Last Taken Unknown] midodrine 5 mg tablet 5 mg PO DAILY 06/24/22 [History Last Taken 08/25/22] calcium acetate(phosphat bind) 667 mg capsule 1,334 mg PO TIDCM SUPPLEMENT 08/25/22 [History Last Taken 08/25/22] lisinopril 30 mg tablet 30 mg PO DAILY BLOOD PRESSURE 08/25/22 [History Last Taken 08/24/22] metoprolol tartrate 100 mg tablet 50 mg PO DAILY BLOOD PRESSURE 08/25/22 [History Last Taken 08/25/22] pediatric multivitamin (Flintstones Multivitamin chewable tablet) 1 tab PO DAILY 08/25/22 [History Last Taken 08/25/22] potassium chloride 20 mEq tablet,extended release 20 meq PO BID SUPPLEMENT 08/25/22 [History Last Taken 08/25/22] Allergy/AdvReac Type Severity Reaction Status Date / Time No Known Allergies Allergy Verified 06/24/22 14:24 Family History Mother Heart disease Father Heart disease Surgical History History of ankle surgery Social History Smoking Status: Current every day smoker tobacco type: cigarettes alcohol intake: former substance use type: does not use caffeine: No ROS ROS Narrative General: Denies fever/chills HENT: Denies headache, denies stuffy nose, denies sore throat EYES: Denies changes in vision Resp: Has been having shortness of breath over the past week Cardiac: Denies chest pain GI: Denies abdominal pain, denies changes in bowel, has been having some nausea : Has minimal urination at baseline Extremity: Denies swelling MSK: Denies focal weakness Neuro: Denies any numbness/tingling Heme: Does bruise easy Skin: Denies rashes Psychiatric: No complaints voiced Vital Signs Vital Signs Vital Signs: 08/25/22 10:53 08/25/22 12:53 08/25/22 13:40 Temperature 96.6 F L Temperature Source Temporal Pulse Rate 44 L 70 Respiratory Rate 21 H 18 Respiratory Pattern Normal Blood Pressure Blood Pressure Mean Pulse Ox 94 87 Oxygen Delivery Method Nasal Cannula Room Air Oxygen Flow Rate (L/min) 4 08/25/22 13:41 08/25/22 14:01 Temperature 96.1 F L Temperature Source Temporal Pulse Rate 36 L 37 L Respiratory Rate 17 11 L Respiratory Pattern Blood Pressure 128/60 H 127/64 H Blood Pressure Mean 82 85 Pulse Ox 94 94 Oxygen Delivery Method Nasal Cannula Nasal Cannula Oxygen Flow Rate (L/min) 2 2 Weight Weight: 101.7 kg Body Mass Index (BMI) 31.2 Physical Exam Narrative General: Alert, oriented, no apparent distress HEENT: Atraumatic, normocephalic Eyes: Anicteric, eyes disconjugate, extraocular movements grossly intact Neck: Supple Respiratory: Some scattered wheezes and crackles at the bases, not in respiratory distress Cardiovascular: Bradycardic GI: Soft, nontender, nondistended Extremities: No edema Musculoskeletal: Moving all extremities Neuro: No overt focal neurological deficits Skin: Has some various scattered bruising and chronic skin changes Psych: Cooperative Results Lab / Micro Data 08/25/22 11:35 08/25/22 11:35 Labs: Laboratory Results - last 24 hr 08/25/22 11:35: WBC 15.3 H, RBC 3.57 L, Hgb 11.4 L, Hct 36.7 L, MCV 102.8 H, MCH 31.9, MCHC 31.1 L, RDW Std Deviation 53.1 H, RDW Coeff of Mere 14.0, Plt Count 324, MPV 11.4, Immature Gran % (Auto) 0.500, Neut % (Auto) 81.6 H, Lymph % (Auto) 10.4 L, [place] % (Auto) 6.6, Eos % (Auto) 0.5, Baso % (Auto) 0.4, Absolute Neuts (auto) 12.5 H, Absolute Lymphs (auto) 1.59, Nucleated RBC % 0, Sodium 130 L, Potassium 8.1 H*, Chloride 94 L, Carbon Dioxide 27.0, Anion Gap 9, BUN 96 H, Creatinine 7.24 H, Estim Creat Clear Calc 10.69, Est GFR (MDRD) Af Amer 10 L, Est GFR (MDRD) Non-Af 8 L, BUN/Creatinine Ratio 13.3, Glucose 229 H, Calcium 8.9, Troponin I High Sens 26 Rhythm Strip Rhythm Strip: Sinus Rhythm Rate: 37 Ectopy: None Radiology Impression Chest X-Ray 08/25/22 12:28 IMPRESSION: Vascular congestion and a mild degree of CHF. Electronically Signed: Karlo Marley MD at 12:43 EDT , Assessment & Plan Assessment/Plan (1) Hyperkalemia, diminished renal excretion: (2) Hypoxemia: (3) Acute pulmonary edema: PLAN: Plan #Hyperkalemia -Patient with potassium of 8.1, is on hemodialysis Thursday/Thursday/Thursday due to end-stage renal disease with last dialysis on Thursday. He was sent from dialysis today due to the nausea and shortness of breath and did not get treatment -Insulin, dextrose, albuterol, calcium gluconate, sodium bicarb -Nephrology consulted and was contacted by ED provider -EKG with narrow complex and appeared to have more P wave than QRSs but may have been an atypical flutter, discussed with cardiology who recommended holding beta-asher and treatment of hyperkalemia -Admit to ICU #Acute hypoxia with history of COPD -Patient desaturated to mid 80s when off of oxygen, chest x-ray with suggestive of edema -Saturating well on O2 -Makes minimal urine, do not think Lasix will have high utility, nephro consulted regarding dialysis -Nebs -I's and O's, daily weights -Last echo with EF of 45% and mild to moderate segmental systolic dysfunction with septal inferior hypokinesis -We will repeat echo #Bradycardia/w history of a flutter -Likely due to medications in addition to hyperkalemia -We will treat hyperkalemia and hold metoprolol and diltiazem -Cardiology consulted -Patient on Xarelto #Leukocytosis -Suspect reactive, will trend, if any fever or other suggestive etiology of infection will culture and start broad-spectrum antibiotics #Tobacco use -Advise cessation -Patient declined nicotine replacement #DVT ppx: Patient on Xarelto Jeannette Long MD Time spent in the patient's overall evaluation,decision-making process, review of diagnostic data, adjustment of management, discussion with other providers, nursing nursing and ancillary staff involved in patient's care documentation, 72 minutes Charges/Coding Visit Charges Inpatient E&M: 82132 Init Hosp L3
[2022-08-25] MEDS: Insulin Lispro 10 UNIT in Syringe 0 ML 6 UNIT IV (14:43)
[2022-08-25] MEDS: Dextrose 50%-Water 25 GM/50 ML DISP.SYRIN IV (14:43)
[2022-08-25] MEDS: Sodium Polystyrene Sulfonate 15 GM/60 ML UDC 30 GM PO (16:03)
[2022-08-25] MEDS: Insulin Lispro 100 UNIT/ML INSULN.PEN SC (16:08)
[2022-08-25 16:29] LABS: Bedside Glucose 220 mg/dL (74-106)
--- NOTE | 2022-08-25 18:52 | PCM.CONS.R ---
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 The patient presented with severe hyperkalemia and symptomatic bradycardia on 08/25/2022. Nephrology is following for ESRD and dialysis management. ESRD. The patient dialyzes on MWF schedule at [facility]. The patient is followed by Dr. Montserrat Rios. We are covering Dr. Rios until 08/27/2022. He denies missing or shortening dialysis recently. We will dialyze the patient tonight because of symptomatic hyperkalemia. We will also ultrafilter about 2 L. He does not appear to be severely volume overloaded. Reassess for further dialysis tomorrow. More than likely, we will dialyze the patient again on 08/27/2022. Hyperkalemia. The patient admits to not adhering to potassium binder. She is supposed to be taking sodium zirconium cyclosilicate at home. No identifiable potassium source at least on my interview. The patient will likely need a food diary as outpatient. I will also check with his dialysis unit tomorrow to see if there has been any access flow problem. He is currently using left upper arm AV graft although he still has right IJ tunneled dialysis catheter as well. We will use 2K dialysate tonight. Recheck potassium level tomorrow. 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 The patient presented to the hospital today with shortness of breath, nausea and weakness. He was found to be bradycardic with heart rate between 30 to 50 bpm. He was subsequently found to have potassium level of 8.1 mmol/L in ED. He was treated with temporizing measure for hyperkalemia with insulin?D50 and IV sodium bicarbonate. The patient was also given sodium polystyrene sulfonate. Repeat potassium level is pending, but his heart rate is now back into the 70s range. Patient appears to have chronic hyperkalemia, and he was supposed to be on a novel potassium binder, sodium zirconium cyclosilicate as outpatient. However, it is unclear whether he is adhering to potassium binder. He denies eating foods that are high in potassium over the weekend. He did dialyze as per her usual Thursday, Thursday, and Thursday schedule on 08/20/2022. The patient denies missing or shortening his dialysis treatments. The patient denies current chest pain. Shortness of breath has improved since admission. There is no nausea, vomiting, or diarrhea. He denies increasing edema of the lower extremities. [facility] Medical History Atrial flutter Cardiomyopathy Chronic anemia Chronic hyponatremia COPD (chronic obstructive pulmonary disease) CVA (cerebral vascular accident) Diabetes 1.5, managed as type 2 Dyslipidemia End stage renal disease ESRD (end stage renal disease) on dialysis Essential hypertension History of renal dialysis Hyperlipidemia Hypertension Nicotine dependence Sensory disorder Smoker Thromboembolism Walker as ambulation aid Home Medications pantoprazole 40 mg tablet,delayed release 40 mg PO DAILY 10/18/21 [History Last Taken 03/20/22 05:30] rivaroxaban 10 mg tablet (Xarelto) 10 mg PO DAILY 11/06/21 [History Last Taken 08/25/22] atorvastatin 20 mg tablet 20 mg PO QPM CHOLESTEROL 04/02/22 [History Last Taken 08/25/22] albuterol sulfate 90 mcg/actuation aerosol inhaler 1 inh inhalation Q6H PRN shortness of breath or wheezing #8.5 grams 04/05/22 [Rx Last Taken Unknown] aspirin 81 mg tablet,delayed release (Adult Low Dose Aspirin) 81 mg PO DAILY HEART HEALTH 06/24/22 [History Last Taken 08/25/22] diltiazem HCl 120 mg capsule,extended release 24 hr 120 mg PO DAILY BLOOD PRESSURE 06/24/22 [History Last Taken 08/25/22] lisinopril 10 mg tablet 10 mg PO DAILY 06/24/22 [History Last Taken Unknown] metoprolol tartrate 25 mg tablet 50 mg (2 x 25 mg) PO BID Dose decreased for low HR #60 tabs 06/24/22 [Rx Last Taken Unknown] midodrine 5 mg tablet 5 mg PO DAILY 06/24/22 [History Last Taken 08/25/22] calcium acetate(phosphat bind) 667 mg capsule 1,334 mg PO TIDCM SUPPLEMENT 08/25/22 [History Last Taken 08/25/22] lisinopril 30 mg tablet 30 mg PO DAILY BLOOD PRESSURE 08/25/22 [History Last Taken 08/24/22] metoprolol tartrate 100 mg tablet 50 mg PO DAILY BLOOD PRESSURE 08/25/22 [History Last Taken 08/25/22] pediatric multivitamin (Flintstones Multivitamin chewable tablet) 1 tab PO DAILY 08/25/22 [History Last Taken 08/25/22] potassium chloride 20 mEq tablet,extended release 20 meq PO BID SUPPLEMENT 08/25/22 [History Last Taken 08/25/22] Allergy/AdvReac Type Severity Reaction Status Date / Time No Known Allergies Allergy Verified 06/24/22 14:24 Family History Mother Heart disease Father Heart disease Surgical History History of ankle surgery Social History Smoking Status: Current every day smoker tobacco type: cigarettes alcohol intake: former substance use type: does not use caffeine: No ROS ROS Narrative 12/02 ROS was done and is otherwise noncontributory to what is already documented in HPI. Physical Exam Narrative General: Alert and oriented x3, NAD. HEENT: Normocephalic, atraumatic. Mucous membrane moist without erythema. PERRLA, EOMI. Hearing is intact. Neck: Supple, no JVD. Trachea is midline. No thyromegaly or lymphadenopathy. Cardiovascular: Normal S1, S2. No rubs, murmurs, or gallops. Respiratory: Lungs are clear to auscultation bilaterally. No wheezing, rhonchi, or rales. Abdomen: Normal bowel sounds, soft, nontender, no guarding or rebound, no organomegaly. Extremities: No clubbing or cyanosis. There is 1+ edema of the lower extremities bilaterally Musculoskeletal: Full passive range of motion, no joint swelling. Psychiatric: Normal mood and affect. Skin: Warm and dry, no rash. Neurologic: Cranial nerve II to XII are grossly intact. No focal neurologic deficits. Lab / Micro Data 08/25/22 11:35 07/03/23 11:35 Labs: Laboratory Results - last 24 hr 08/25/22 11:35: WBC 15.3 H, RBC 3.57 L, Hgb 11.4 L, Hct 36.7 L, MCV 102.8 H, MCH 31.9, MCHC 31.1 L, RDW Std Deviation 53.1 H, RDW Coeff of Mere 14.0, Plt Count 324, MPV 11.4, Immature Gran % (Auto) 0.500, Neut % (Auto) 81.6 H, Lymph % (Auto) 10.4 L, [place] % (Auto) 6.6, Eos % (Auto) 0.5, Baso % (Auto) 0.4, Absolute Neuts (auto) 12.5 H, Absolute Lymphs (auto) 1.59, Nucleated RBC % 0, Sodium 130 L, Potassium 8.1 H*, Chloride 94 L, Carbon Dioxide 27.0, Anion Gap 9, BUN 96 H, Creatinine 7.24 H, Estim Creat Clear Calc 10.69, Est GFR (MDRD) Af Amer 10 L, Est GFR (MDRD) Non-Af 8 L, BUN/Creatinine Ratio 13.3, Glucose 229 H, Calcium 8.9, Troponin I High Sens 26 08/25/22 16:07: POC Glucose 220 H Rhythm Strip Rhythm Strip: Sinus Rhythm Rate: 37 Ectopy: None Radiology Impression Chest X-Ray 08/25/22 12:28 IMPRESSION: Vascular congestion and a mild degree of CHF. Electronically Signed: Karlo Marley MD at 12:43 EDT ,
[2022-08-25 19:41] LABS: Anion Gap 9 (5-15); BUN 100 mg/dL (7-18); BUN/Creat Ratio 13.2 RATIO (10-20); Calcium,Total 8.5 mg/dL (8.5-10.1); Chloride 94 mmol/L (98-107); Creatinine, Serum 7.57 mg/dL (0.70-1.30); EST Glomerular Filtration Rate 8 mL/min (>60); Est Glom Filt Rate - Afr Amer 9 mL/min (>60); Estimated Creatinine Clearance 9.91 ml/min; Glucose 175 mg/dL (74-106); Potassium 6.5 mmol/L (3.5-5.1); Sodium Level 131 mmol/L (136-145)
[2022-08-25] MEDS: PureFlow B 2K Dialysis Soln 1 BAG 6 BAG PF (20:01)
[2022-08-25] MEDS: 0.9% Normal Saline 1,000 ML IV.SOLN. 1000 ML OPERA.SITE (20:03)
[2022-08-25 20:39] LABS: Anion Gap 11 (5-15); BUN 94 mg/dL (7-18); BUN/Creat Ratio 13.4 RATIO (10-20); Calcium,Total 8.1 mg/dL (8.5-10.1); Chloride 93 mmol/L (98-107); Creatinine, Serum 7.02 mg/dL (0.70-1.30); EST Glomerular Filtration Rate 8 mL/min (>60); Est Glom Filt Rate - Afr Amer 10 mL/min (>60); Estimated Creatinine Clearance 10.69 ml/min; Glucose 180 mg/dL (74-106); Potassium 5.8 mmol/L (3.5-5.1); Sodium Level 134 mmol/L (136-145)
[2022-08-25] MEDS: 0.9% Saline Lock 10 ML Syringe IV (21:15)
[2022-08-25] MEDS: Heparin 10,000 UNITS/10 ML Vial IV (21:18)
[2022-08-25 21:39] LABS: Bedside Glucose 125 mg/dL (74-106)
[2022-08-25] MEDS: Atorvastatin Calcium 20 MG Tablet PO (21:51)
[2022-08-26] VITALS (19 sets, daily range): BP systolic 114–165; BP diastolic 54–87; PULSE 75–99; RESP 13–25; TEMP 36.2–36.9; O2SAT 90–100; BMI 30.9
[2022-08-26 00:28] LABS: Anion Gap 8 (5-15); BUN 64 mg/dL (7-18); BUN/Creat Ratio 13.2 RATIO (10-20); Calcium,Total 7.6 mg/dL (8.5-10.1); Chloride 98 mmol/L (98-107); Creatinine, Serum 4.85 mg/dL (0.70-1.30); EST Glomerular Filtration Rate 13 mL/min (>60); Est Glom Filt Rate - Afr Amer 16 mL/min (>60); Estimated Creatinine Clearance 15.47 ml/min; Glucose 189 mg/dL (74-106); Sodium Level 137 mmol/L (136-145)
[2022-08-26 03:43] LABS: Absolute Lymphocyte Count 1.65 X10^3/uL (0.83-4.51); Absolute Neutrophil Count 7.7 X10^3/uL (2.0-7.7); Basophil# 0.04 X10^3/uL; Basophil% 0.4 % (0-1); Eosinophils% 0.9 % (0-5); Hematocrit 31.2 % (40-54); Hemoglobin 9.9 g/dL (13.0-16.5); Lymphocyte # 1.65 X10^3/ul (0.83-4.51); Lymphocyte % 15.5 % (19-41); Mean Corp Hgb Conc 31.7 g/dL (32-36); Mean Corpuscular Hgb 32.5 pg (27.0-32.0); Mean Corpuscular Volume 102.3 fL (80-94); Mean Platelet Vol. 10.3 fl (6.2-12.0); Monocyte# 1.09 X10^3/uL; Monocyte% 10.3 % (0-10); NRBC Flagged by Analyzer 0 % (0-5); Neutrophil # 7.71 X10^3/uL (2.7-7.7); Neutrophil % 72.5 % (47-70); Platelet Count 242 K/mm3 (150-450); RBC Distribution Width CV 14.1 % (11.6-14.6); RBC Distribution Width SD 52.7 fl (35.1-43.9); Red Blood Count 3.05 M/mm3 (4.6-6.2); White Blood Count 10.6 K/mm3 (4.4-11.0)
[2022-08-26 04:12] LABS: Anion Gap 8 (5-15); BUN 69 mg/dL (7-18); BUN/Creat Ratio 12.2 RATIO (10-20); Calcium,Total 8.2 mg/dL (8.5-10.1); Chloride 96 mmol/L (98-107); Creatinine, Serum 5.64 mg/dL (0.70-1.30); EST Glomerular Filtration Rate 11 mL/min (>60); Est Glom Filt Rate - Afr Amer 13 mL/min (>60); Glucose 97 mg/dL (74-106); Magnesium 2.6 mg/dL (1.6-2.6); Phosphorus 8.4 mg/dL (2.5-4.9); Potassium 4.6 mmol/L (3.5-5.1); Sodium Level 134 mmol/L (136-145); Thyroid Stim Hormone (TSH) 0.62 uIU/mL (0.358-3.74)
--- NOTE | 2022-08-26 04:59 | CPS ---
Patient was started on SL CPAP machine but failed to tolerate.
--- NOTE | 2022-08-26 05:00 | CPS ---
V60 CPAP machine was started, Patient tolerating well.Full face mask is having high leak from patient doshi, adequate return tidal volumes observed
[2022-08-26] MEDS: Ipratropium/Albuterol Sulfate 3 ML AMPUL.NEB INHALATION ×2 (06:55→13:24)
--- NOTE | 2022-08-26 07:05 | PCM.PN.HOSP ---
Reason for Visit Reason for Visit: Diagnoses Hyperkalemia (08/25/22) Acute pulmonary edema (08/25/22) End stage renal disease (08/25/22) Hypoxemia (08/25/22) Objective Data Objective Data Vital Signs: Vital Signs Temp Pulse Resp BP Pulse Ox O2 Del Method O2 Flow Rate 97.2 F L 94 23 H 165/87 H 99 Room Air 2 08/26/22 04:00 08/26/22 07:00 08/26/22 07:00 08/26/22 07:00 08/26/22 07:00 08/26/22 07:00 08/26/22 04:00 FiO2 30 08/26/22 06:00 Oxygen Flow Rate (L/min) 2 Oxygen Delivery Method Room Air Weight: 100.3 kg Body Mass Index (BMI) 30.9 Intake & Output: Intake and Output for Last 24 Hours 08/24/22 08/25/22 08/26/22 23:59 23:59 23:59 Intake Total 1150 / 1150 Output Total 1999 / 1999 100 / 100 Balance -850 / -850 -100 / -100 Lab / Micro Data 08/26/22 03:35 08/26/22 03:35 Labs: Laboratory Results - last 24 hr 08/25/22 11:35: WBC 15.3 H, RBC 3.57 L, Hgb 11.4 L, Hct 36.7 L, MCV 102.8 H, MCH 31.9, MCHC 31.1 L, RDW Std Deviation 53.1 H, RDW Coeff of Mere 14.0, Plt Count 324, MPV 11.4, Immature Gran % (Auto) 0.500, Neut % (Auto) 81.6 H, Lymph % (Auto) 10.4 L, [place] % (Auto) 6.6, Eos % (Auto) 0.5, Baso % (Auto) 0.4, Absolute Neuts (auto) 12.5 H, Absolute Lymphs (auto) 1.59, Nucleated RBC % 0, Sodium 130 L, Potassium 8.1 H*, Chloride 94 L, Carbon Dioxide 27.0, Anion Gap 9, BUN 96 H, Creatinine 7.24 H, Estim Creat Clear Calc 10.69, Est GFR (MDRD) Af Amer 10 L, Est GFR (MDRD) Non-Af 8 L, BUN/Creatinine Ratio 13.3, Glucose 229 H, Calcium 8.9, Troponin I High Sens 26 08/25/22 16:07: POC Glucose 220 H 08/25/22 17:45: Sodium 131 L, Potassium 6.5 H*, Chloride 94 L, Carbon Dioxide 28.0, Anion Gap 9, BUN 100 H, Creatinine 7.57 H*, Estim Creat Clear Calc 9.91, Est GFR (MDRD) Af Amer 9 L, Est GFR (MDRD) Non-Af 8 L, BUN/Creatinine Ratio 13.2, Glucose 175 H, Calcium 8.5 08/25/22 19:55: Sodium 134 L, Potassium 5.8 H, Chloride 93 L, Carbon Dioxide 30.0, Anion Gap 11, BUN 94 H, Creatinine 7.02 H, Estim Creat Clear Calc 10.69, Est GFR (MDRD) Af Amer 10 L, Est GFR (MDRD) Non-Af 8 L, BUN/Creatinine Ratio 13.4, Glucose 180 H, Calcium 8.1 L 08/25/22 21:20: POC Glucose 125 H 08/26/22 00:00: Sodium 137, Potassium 4.0, Chloride 98, Carbon Dioxide 31.0, Anion Gap 8, BUN 64 H, Creatinine 4.85 H, Estim Creat Clear Calc 15.47, Est GFR (MDRD) Af Amer 16 L, Est GFR (MDRD) Non-Af 13 L, BUN/Creatinine Ratio 13.2, Glucose 189 H, Calcium 7.6 L 08/26/22 03:35: WBC 10.6, RBC 3.05 L, Hgb 9.9 L, Hct 31.2 L, MCV 102.3 H, MCH 32.5 H, MCHC 31.7 L, RDW Std Deviation 52.7 H, RDW Coeff of Mere 14.1, Plt Count 242, MPV 10.3, Immature Gran % (Auto) 0.400, Neut % (Auto) 72.5 H, Lymph % (Auto) 15.5 L, [place] % (Auto) 10.3 H, Eos % (Auto) 0.9, Baso % (Auto) 0.4, Absolute Neuts (auto) 7.7, Absolute Lymphs (auto) 1.65, Nucleated RBC % 0, Sodium 134 L, Potassium 4.6, Chloride 96 L, Carbon Dioxide 30.0, Anion Gap 8, BUN 69 H, Creatinine 5.64 H, Estim Creat Clear Calc 13.30, Est GFR (MDRD) Af Amer 13 L, Est GFR (MDRD) Non-Af 11 L, BUN/Creatinine Ratio 12.2, Glucose 97, Calcium 8.2 L, Phosphorus 8.4 H, Magnesium 2.6, TSH 0.62 Radiography Diagnostic Testing: Radiology Impression Chest X-Ray 08/25/22 12:28 IMPRESSION: Vascular congestion and a mild degree of CHF. Electronically Signed: Karlo Marley MD at 12:43 EDT , Rhythm Strip Rhythm Strip: Sinus Rhythm Rate: 37 Ectopy: None Assessment & Plan Assessment/Plan (1) Hyperkalemia, diminished renal excretion: (2) Hypoxemia: (3) Acute pulmonary edema: PLAN: Plan #Hyperkalemia- resolved -Patient with potassium of 8.1, is on hemodialysis Thursday/Thursday/Thursday due to end-stage renal disease with last dialysis on Thursday. He was sent from dialysis today due to the nausea and shortness of breath and did not get treatment -Insulin, dextrose, albuterol, calcium gluconate, sodium bicarb -Nephrology consulted and was contacted by ED provider -EKG with narrow complex and appeared to have more P wave than QRSs but may have been an atypical flutter, discussed with cardiology who recommended holding beta-asher and treatment of hyperkalemia -Admit to ICU -08/26: Status post HD last night with resolution of hyperkalemia. Continue to hold lisinopril, nephrology following #Acute hypoxia with history of COPD?hypoxia resolved -Patient desaturated to mid 80s when off of oxygen, chest x-ray with suggestive of edema -Saturating well on O2 -Makes minimal urine, do not think Lasix will have high utility, nephro consulted regarding dialysis -Nebs -I's and O's, daily weights -Last echo with EF of 45% and mild to moderate segmental systolic dysfunction with septal inferior hypokinesis -We will repeat echo -08/26: Resolved after dialysis. Continue nebs #Bradycardia/w history of a flutter?bradycardia resolved -Likely due to medications in addition to hyperkalemia -We will treat hyperkalemia and hold metoprolol and diltiazem -Cardiology consulted -Patient on Xarelto -08/26: Resolved after hemodialysis. Cardiology consulted, appreciate recommendations on rate control moving forward, presently metoprolol diltiazem held. Has had bradycardia in the past but this has been associated with hyperkalemia so unclear if he would be candidate for pacemaker in the future but suspect not if it causes reversible even if it is recurrent #Leukocytosis?resolved -Suspect reactive, will trend, if any fever or other suggestive etiology of infection will culture and start broad-spectrum antibiotics -08/26: Resolved after hemodialysis #Tobacco use -Advise cessation -Patient declined nicotine replacement #DVT ppx: Patient on Xarelto Jeannette Long MD Time spent in the patient's overall evaluation,decision-making process, review of diagnostic data, adjustment of management, discussion with other providers, nursing nursing and ancillary staff involved in patient's care documentation, 36 minutes Charges/Coding Visit Charges Inpatient E&M: 30093 Subs Hosp L3
--- NOTE | 2022-08-26 07:28 | EX.PCM.CONCC ---
Assessment & Plan Assessment/Plan (1) Hyperkalemia, diminished renal excretion: (2) Acute pulmonary edema: (3) ESRD (end stage renal disease) on dialysis: PLAN: Plan 1. ESRD on dialysis, compliant with dialysis, presenting with life-threatening hyperkalemia possibly due to not taking his outpatient binder medication, now resolved with dialysis yesterday. -Dialysis decisions per renal - I would recommend another dialysis session today if possible with the holiday, for goal of 1 more liter of fluid removal for lungs and residual leg edema. -Reconsideration of potential patient barriers to taking his sodium zirconium cyclosilicate (potassium binder) with good compliance 2. Mild congestive heart failure/fluid overload, now improved, but with residual bibasilar crackles after dialysis with a net 950 cc output and saturation 99% on room air. I would recommend another dialysis session today for goal of 1 more liter of fluid removal for lungs and residual leg edema. -Recommend additional dialysis, as above. He is stable on room air. 3. Hyperphosphatemia -Management per renal, consider chronic phosphate binder as outpatient. 4. Hyperglycemia in a patient with type 2 diabetes. Glucoses have been ranging in the low 200s. - Management by hospitalist team 5. History of atrial flutter cardiomyopathy hypertension, blood pressure still remains elevated but troponin was normal. - Recommend restarting outpatient medications. 6. Subacute COPD exacerbation, likely due to running out of medication at home. Current smoker, history of COPD, normoxia - Solu-Medrol 40 IV every 8 hours added. - Scheduled DuoNeb 4 times daily while awake. - Patient is not ready to make a quit attempt. Continue counseling and assessing readiness to quit. - Assess O2 need prior to discharge with overnight oximetry and ambulatory oximetry. -Consider follow-up in pulmonary as an outpatient to fine-tune his inhaled medications, with PFTs as outpatient. Please order complete PFTs at discharge. 7. 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 These problems have the potential of complicating his current medical situation. 8. Poor foot hygiene: Recommend podiatry with outpatient follow-up. Critical care time spent with patient at bedside, review of documentation, lab results, radiology and other test results, discussion with colleagues and ancillary staff, clinical management of patient, and updating family if applicable, was 50 minutes. This time does not include any procedures, if performed. [place] [address]. The patient is no longer critically ill and can be transferred to PCU. Critical care will sign off. Thank you for consulting [facility]. HPI Consult Data Date of Consult: 08/26/22 HPI Narrative Reason for Consultation: Critical care support, hyperkalemia and bradycardia. HPI Narrative: JOHN SAHU, is a 66 M who presents with hyperkalemia of 8.1 for unclear reasons, with symptomatic bradycardia. He had 2 days of weakness, not feeling like his usual self. He was nauseous prior to his last dialysis session. Yesterday in ER, BUN was 96 and creatinine was 7.24. He has end-stage renal disease on dialysis Thursday. He was not sure if he is compliant as an outpatient with his sodium zirconium cyclosilicate potassium binder specifically, but stated that he takes all his medications. He has been compliant with dialysis. He was dialyzed last night with good effect, today's labs showing normalization of his potassium, BUN of 68 creatinine is 5.6 with phosphate of 8.4 today, further decisions on dialysis today will be per renal. His past medical history is remarkable for ESRD, type 2 diabetes, hypertension, COPD, atrial flutter, cardiomyopathy, venous thromboembolism on [facility] abandoned, CVA, cardiomyopathy, current smoker. Regarding his COPD. The patient stated he was diagnosed with COPD, he is managed on a DuoNeb inhaler at home, and ran out of his inhaler a long time ago. He still smokes 1/2 pack/day, smoked for 50 years, is not interested in quitting. He wheezes daily but is not bothered by shortness of breath and is not on oxygen. He denies increase in cough, sputum, dyspnea or chest pain. However he is wheezing uncontrollably, and has accepted that is his normal state after running out of bronchodilator medication. He is ambulatory, lives independently, has very poor hygiene and difficulty caring for himself. He does not have home health. He has poor foot hygiene but no open lesions. It has been recommended for him to go to podiatry but he has not followed up. Past medical surgical family and social history reviewed with no changes or additions except as above. 12 system review of systems is negative except as above. His hospital course is remarkable for being seen by renal and started on his usual hemodialysis yesterday, with significant improvement in all of his electrolyte parameters and fluid status. Today his weight is 221 pounds. BMI is 31.0. His I's and O's were net 950 cc over the past 24 hours. Blood pressure is 165/87, his saturation is 99% on room air. His chest x-ray shows mild CHF his troponin was normal at 26. His CBC is unremarkable. He would like to go home today. [facility] Medical History (Updated 08/26/22 @ 09:[address] Gabriel Guzman MD) Atrial flutter Cardiomyopathy Chronic anemia Chronic hyponatremia COPD (chronic obstructive pulmonary disease) CVA (cerebral vascular accident) Diabetes 1.5, managed as type 2 Dyslipidemia End stage renal disease ESRD (end stage renal disease) on dialysis Essential hypertension History of renal dialysis Hyperlipidemia Hypertension Nicotine dependence Sensory disorder Smoker Thromboembolism Walker as ambulation aid Home Medications pantoprazole 40 mg tablet,delayed release 40 mg PO DAILY 10/18/21 [History Last Taken 03/20/22 05:30] rivaroxaban 10 mg tablet (Xarelto) 10 mg PO DAILY 11/06/21 [History Last Taken 08/25/22] atorvastatin 20 mg tablet 20 mg PO QPM CHOLESTEROL 04/02/22 [History Last Taken 08/25/22] albuterol sulfate 90 mcg/actuation aerosol inhaler 1 inh inhalation Q6H PRN shortness of breath or wheezing #8.5 grams 04/05/22 [Rx Last Taken Unknown] aspirin 81 mg tablet,delayed release (Adult Low Dose Aspirin) 81 mg PO DAILY HEART HEALTH 06/24/22 [History Last Taken 08/25/22] diltiazem HCl 120 mg capsule,extended release 24 hr 120 mg PO DAILY BLOOD PRESSURE 06/24/22 [History Last Taken 08/25/22] lisinopril 10 mg tablet 10 mg PO DAILY 06/24/22 [History Last Taken Unknown] metoprolol tartrate 25 mg tablet 50 mg (2 x 25 mg) PO BID Dose decreased for low HR #60 tabs 06/24/22 [Rx Last Taken Unknown] midodrine 5 mg tablet 5 mg PO DAILY 06/24/22 [History Last Taken 08/25/22] calcium acetate(phosphat bind) 667 mg capsule 1,334 mg PO TIDCM SUPPLEMENT 08/25/22 [History Last Taken 08/25/22] lisinopril 30 mg tablet 30 mg PO DAILY BLOOD PRESSURE 08/25/22 [History Last Taken 08/24/22] metoprolol tartrate 100 mg tablet 50 mg PO DAILY BLOOD PRESSURE 08/25/22 [History Last Taken 08/25/22] pediatric multivitamin (Flintstones Multivitamin chewable tablet) 1 tab PO DAILY 08/25/22 [History Last Taken 08/25/22] potassium chloride 20 mEq tablet,extended release 20 meq PO BID SUPPLEMENT 08/25/22 [History Last Taken 08/25/22] Allergy/AdvReac Type Severity Reaction Status Date / Time No Known Allergies Allergy Verified 06/24/22 14:24 Family History Mother Heart disease Father Heart disease Surgical History History of ankle surgery Social History Smoking Status: Current every day smoker tobacco type: cigarettes alcohol intake: former substance use type: does not use caffeine: No Physical Exam Narrative Well-developed disheveled man with a long doshi in no acute distress. Fair historian, awake and alert x3 HEENT mucous membranes moist, he has amblyopia with outward turning of the left eye which is chronic. No icterus. Poor dentition. Chest has bilateral expiratory wheezes in all lung joe. There are crackles in the lower third of both lung joe with no dullness. There is a right subclavian dialysis catheter in good condition. Chest x-ray shows good placement. Heart normal S1-S2 with a occasional blowing murmur heard in the anterior precordium. (Patient is not aware of having a heart murmur). Rhythm is sinus with APCs. Abdomen is soft, nontender, nondistended. Extremities have very poor hygiene, extensive ecchymoses secondary to hypercoagulability of renal failure. Toes have thickened crusted dirt, untrimmed nails which curl over the toe tips. No obvious lesions. Neurologic exam is grossly nonfocal, moves all 4 extremities. Skin is warm and dry. Multiple ecchymoses, a few open lesions on the arms from scratching. Fair historian, awake and alert x3. Medical Records Data Attestation: I reviewed the patient's medical records Lab / Micro Data Attestation: I reviewed the patient's lab results. 08/26/22 03:35 08/26/22 03:35 Labs: Laboratory Results - last 24 hr 08/25/22 11:35: WBC 15.3 H, RBC 3.57 L, Hgb 11.4 L, Hct 36.7 L, MCV 102.8 H, MCH 31.9, MCHC 31.1 L, RDW Std Deviation 53.1 H, RDW Coeff of Mere 14.0, Plt Count 324, MPV 11.4, Immature Gran % (Auto) 0.500, Neut % (Auto) 81.6 H, Lymph % (Auto) 10.4 L, [place] % (Auto) 6.6, Eos % (Auto) 0.5, Baso % (Auto) 0.4, Absolute Neuts (auto) 12.5 H, Absolute Lymphs (auto) 1.59, Nucleated RBC % 0, Sodium 130 L, Potassium 8.1 H*, Chloride 94 L, Carbon Dioxide 27.0, Anion Gap 9, BUN 96 H, Creatinine 7.24 H, Estim Creat Clear Calc 10.69, Est GFR (MDRD) Af Amer 10 L, Est GFR (MDRD) Non-Af 8 L, BUN/Creatinine Ratio 13.3, Glucose 229 H, Calcium 8.9, Troponin I High Sens 26 08/25/22 16:07: POC Glucose 220 H 08/25/22 17:45: Sodium 131 L, Potassium 6.5 H*, Chloride 94 L, Carbon Dioxide 28.0, Anion Gap 9, BUN 100 H, Creatinine 7.57 H*, Estim Creat Clear Calc 9.91, Est GFR (MDRD) Af Amer 9 L, Est GFR (MDRD) Non-Af 8 L, BUN/Creatinine Ratio 13.2, Glucose 175 H, Calcium 8.5 08/25/22 19:55: Sodium 134 L, Potassium 5.8 H, Chloride 93 L, Carbon Dioxide 30.0, Anion Gap 11, BUN 94 H, Creatinine 7.02 H, Estim Creat Clear Calc 10.69, Est GFR (MDRD) Af Amer 10 L, Est GFR (MDRD) Non-Af 8 L, BUN/Creatinine Ratio 13.4, Glucose 180 H, Calcium 8.1 L 08/25/22 21:20: POC Glucose 125 H 08/26/22 00:00: Sodium 137, Potassium 4.0, Chloride 98, Carbon Dioxide 31.0, Anion Gap 8, BUN 64 H, Creatinine 4.85 H, Estim Creat Clear Calc 15.47, Est GFR (MDRD) Af Amer 16 L, Est GFR (MDRD) Non-Af 13 L, BUN/Creatinine Ratio 13.2, Glucose 189 H, Calcium 7.6 L 08/26/22 03:35: WBC 10.6, RBC 3.05 L, Hgb 9.9 L, Hct 31.2 L, MCV 102.3 H, MCH 32.5 H, MCHC 31.7 L, RDW Std Deviation 52.7 H, RDW Coeff of Mere 14.1, Plt Count 242, MPV 10.3, Immature Gran % (Auto) 0.400, Neut % (Auto) 72.5 H, Lymph % (Auto) 15.5 L, [place] % (Auto) 10.3 H, Eos % (Auto) 0.9, Baso % (Auto) 0.4, Absolute Neuts (auto) 7.7, Absolute Lymphs (auto) 1.65, Nucleated RBC % 0, Sodium 134 L, Potassium 4.6, Chloride 96 L, Carbon Dioxide 30.0, Anion Gap 8, BUN 69 H, Creatinine 5.64 H, Estim Creat Clear Calc 13.30, Est GFR (MDRD) Af Amer 13 L, Est GFR (MDRD) Non-Af 11 L, BUN/Creatinine Ratio 12.2, Glucose 97, Calcium 8.2 L, Phosphorus 8.4 H, Magnesium 2.6, TSH 0.62 Chest x-ray 08/25/2022 showed mild congestion consistent with fluid overload/CHF. STUDY: X-RAY CHEST REASON FOR EXAM: Male, 66 years old. sob TECHNIQUE: Single AP portable view of the chest. COMPARISON: Comparison is made with prior study of April 02, 2022. FINDINGS: A right-sided double-lumen catheter is seen with the tip at the junction of the superior vena cava and right atrium. EKG electrodes are seen. Vascular congestion and mild degree of CHF. There is no demonstrated pleural abnormality. There is borderline cardiomegaly. Normal mediastinum and didier. Normal visualized pulmonary arteries. Normal visualized aortic arch and descending thoracic aorta. There are diffuse degenerative changes of the visualized thoracic spine. Normal visualized ribs, clavicles, and shoulders. There is no demonstrated abnormality of the visualized soft tissue structures of the upper abdomen. RAD/Chest 1 View (Portable) IMPRESSION: Vascular congestion and a mild degree of CHF. Electronically Signed: Karlo Marley MD at 12:43 EDT Rhythm Strip Rhythm Strip: Sinus Rhythm Rate: 37 Ectopy: None Radiology Impression Chest X-Ray 08/25/22 12:28 IMPRESSION: Vascular congestion and a mild degree of CHF. Electronically Signed: Karlo Marley MD at 12:43 EDT , Charges/Coding Visit Charges Inpatient E&M: 09188 Init Hosp L3
[2022-08-26] MEDS: Rivaroxaban 10 MG Tablet PO (08:11)
[2022-08-26] MEDS: Aspirin E.C. 81 MG Tablet PO (08:11)
[2022-08-26 08:32] LABS: Bedside Glucose 117 mg/dL (74-106)
--- NOTE | 2022-08-26 10:31 | PCM.PN.REN ---
Subjective Subjective No new complaints. Feels well. Asking to go home today. Objective Data Objective Data Vital Signs: Vital Signs Temp Pulse Resp BP Pulse Ox O2 Del Method O2 Flow Rate 97.2 F L 94 14 165/77 H 92 Room Air 2 08/26/22 04:00 08/26/22 08:00 08/26/22 08:00 08/26/22 08:00 08/26/22 08:00 08/26/22 08:00 08/26/22 04:00 FiO2 30 08/26/22 06:00 Oxygen Flow Rate (L/min) 2 Oxygen Delivery Method Room Air Weight: 100.3 kg Body Mass Index (BMI) 30.9 Intake & Output: Intake and Output for Last 24 Hours 08/24/22 08/25/22 08/26/22 23:59 23:59 23:59 Intake Total 1150 / 1150 Output Total 1999 100 / 100 Balance -850 / -850 -100 / -100 Lab / Micro Data 08/26/22 03:35 08/26/22 03:35 Labs: Laboratory Results - last 24 hr 08/25/22 11:35: WBC 15.3 H, RBC 3.57 L, Hgb 11.4 L, Hct 36.7 L, MCV 102.8 H, MCH 31.9, MCHC 31.1 L, RDW Std Deviation 53.1 H, RDW Coeff of Mere 14.0, Plt Count 324, MPV 11.4, Immature Gran % (Auto) 0.500, Neut % (Auto) 81.6 H, Lymph % (Auto) 10.4 L, [place] % (Auto) 6.6, Eos % (Auto) 0.5, Baso % (Auto) 0.4, Absolute Neuts (auto) 12.5 H, Absolute Lymphs (auto) 1.59, Nucleated RBC % 0, Sodium 130 L, Potassium 8.1 H*, Chloride 94 L, Carbon Dioxide 27.0, Anion Gap 9, BUN 96 H, Creatinine 7.24 H, Estim Creat Clear Calc 10.69, Est GFR (MDRD) Af Amer 10 L, Est GFR (MDRD) Non-Af 8 L, BUN/Creatinine Ratio 13.3, Glucose 229 H, Calcium 8.9, Troponin I High Sens 26 08/25/22 16:07: POC Glucose 220 H 08/25/22 17:45: Sodium 131 L, Potassium 6.5 H*, Chloride 94 L, Carbon Dioxide 28.0, Anion Gap 9, BUN 100 H, Creatinine 7.57 H*, Estim Creat Clear Calc 9.91, Est GFR (MDRD) Af Amer 9 L, Est GFR (MDRD) Non-Af 8 L, BUN/Creatinine Ratio 13.2, Glucose 175 H, Calcium 8.5 08/25/22 19:55: Sodium 134 L, Potassium 5.8 H, Chloride 93 L, Carbon Dioxide 30.0, Anion Gap 11, BUN 94 H, Creatinine 7.02 H, Estim Creat Clear Calc 10.69, Est GFR (MDRD) Af Amer 10 L, Est GFR (MDRD) Non-Af 8 L, BUN/Creatinine Ratio 13.4, Glucose 180 H, Calcium 8.1 L 08/25/22 21:20: POC Glucose 125 H 08/26/22 00:00: Sodium 137, Potassium 4.0, Chloride 98, Carbon Dioxide 31.0, Anion Gap 8, BUN 64 H, Creatinine 4.85 H, Estim Creat Clear Calc 15.47, Est GFR (MDRD) Af Amer 16 L, Est GFR (MDRD) Non-Af 13 L, BUN/Creatinine Ratio 13.2, Glucose 189 H, Calcium 7.6 L 08/26/22 03:35: WBC 10.6, RBC 3.05 L, Hgb 9.9 L, Hct 31.2 L, MCV 102.3 H, MCH 32.5 H, MCHC 31.7 L, RDW Std Deviation 52.7 H, RDW Coeff of Mere 14.1, Plt Count 242, MPV 10.3, Immature Gran % (Auto) 0.400, Neut % (Auto) 72.5 H, Lymph % (Auto) 15.5 L, [place] % (Auto) 10.3 H, Eos % (Auto) 0.9, Baso % (Auto) 0.4, Absolute Neuts (auto) 7.7, Absolute Lymphs (auto) 1.65, Nucleated RBC % 0, Sodium 134 L, Potassium 4.6, Chloride 96 L, Carbon Dioxide 30.0, Anion Gap 8, BUN 69 H, Creatinine 5.64 H, Estim Creat Clear Calc 13.30, Est GFR (MDRD) Af Amer 13 L, Est GFR (MDRD) Non-Af 11 L, BUN/Creatinine Ratio 12.2, Glucose 97, Calcium 8.2 L, Phosphorus 8.4 H, Magnesium 2.6, TSH 0.62 08/26/22 08:10: POC Glucose 117 H Radiography Diagnostic Testing: Radiology Impression Chest X-Ray 08/25/22 12:28 IMPRESSION: Vascular congestion and a mild degree of CHF. Electronically Signed: Karlo Marley MD at 12:43 EDT , Rhythm Strip Rhythm Strip: Sinus Rhythm Rate: 37 Ectopy: None Physical Exam Narrative General: Alert and oriented x3, NAD. HEENT: Normocephalic, atraumatic. Mucous membrane moist without erythema. PERRLA, EOMI. Hearing is intact. Neck: Supple, no JVD. Trachea is midline. No thyromegaly or lymphadenopathy. Cardiovascular: Normal S1, S2. No rubs, murmurs, or gallops. Respiratory: Lungs are clear to auscultation bilaterally. No wheezing, rhonchi, or rales. Abdomen: Normal bowel sounds, soft, nontender, no guarding or rebound, no organomegaly. Extremities: No clubbing or cyanosis. There is 1+ edema of the lower extremities bilaterally Musculoskeletal: Full passive range of motion, no joint swelling. Psychiatric: Normal mood and affect. Skin: Warm and dry, no rash. Neurologic: Cranial nerve II to XII are grossly intact. No focal neurologic deficits. 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 The patient presented with severe hyperkalemia and symptomatic bradycardia on 08/25/2022. Nephrology is following for ESRD and dialysis management. ESRD. The patient dialyzes on MWF schedule at [facility] [place]. The patient is followed by Dr. Montserrat Rios. We are covering Dr. Rios until 08/27/2022. S/p dialysis yesterday. Doing better today. Breathing looks back to baseline. Saturating well. Slept okay without any problems. Next dialysis can be tomorrow as outpatient. Hyperkalemia. The patient admits to not adhering to potassium binder. he is supposed to be taking sodium zirconium cyclosilicate at home. Potassium has improved. 4.6 today. Asking to go home. Can be discharged from nephrology standpoint. Discussed with hospitalist
[2022-08-26 11:50] LABS: Bedside Glucose 136 mg/dL (74-106)
--- NOTE | 2022-08-26 14:50 | DCINST_ITS ---
Discharge Instructions Diet Discharge Diet: Renal Diet Activity Discharge Activity: Return to Normal Activity Follow Up Care Test Results: Test results from this visit will be discussed in further detail at your follow- up appointment, if applicable. Discharge Plan Admission Admit Date/Time: 08/25/22 14:44 Primary Reason for Your Visit: SOB, hyperkalemia Attending Provider: Jeannette Long Primary Care Provider: Ramona Khan Consulting Providers: Fei Xiao; Montserrat Rios; Laith Monroe; Josias Denny; Gabriel Guzman; Jorge Ruiz; Camille Cook [employer] Instructions Patient Instructions: Hemodialysis, ED Hemodialysis, ED Hyperkalemia Additional Instructions / Restrictions: DISCHARGE INSTRUCTIONS PLEASE READ *Please take this with you to your next doctors appointment* -Please continue dialysis upon discharge. Please continue your Thursday, Thursday, Thursday schedule. If you have any questions or problems with scheduling, please contact your leadership development instructor. Continue to follow with your leadership development instructor as previously schedule -Would recommend lab work (BMP) to check your potassium in 2 to 3 days through your primary care physician's office or nephrology office. Please call their office upon discharge to obtain order for lab work. -Due to your low heart rate when you came in and history of low heart rate when your potassium gets high, would recommend holding your diltiazem and continuing metoprolol. The metoprolol on your home medication list however is metoprolol tartrate, please discontinue metoprolol tartrate and begin metoprolol succinate 50 mg daily. This will be sent into preferred pharmacy on file. It is very imp ortant that you do not take both together -Please follow-up with your timber deadener upon discharge. Please call their office to schedule hospital follow-up appointment upon discharge. -Given your high potassium your lisinopril has been discontinued, this can be discussed with your prescribing physician in regards to risks and benefits of resuming this -I WILL BE VERY IMPORTANT THAT YOU DO NOT TAKE ANY POTASSIUM SUPPLEMENTATION ON DISCHARGE. ON YOUR HOME MEDICATION LIST INDICATES TO TAKE POTASSIUM 20 MG TWICE DAILY, PLEASE DISCONTINUE ALL POTASSIUM SUPPLEMENTATION -Additionally will be important that you adhere to your potassium binder that you are supposed to be taking on outpatient basis -Please follow-up with pulmonology upon discharge. Please call their office to schedule hospital follow-up appointment upon discharge. You will need pulmonary function test on an outpatient basis, this can be coordinated through the pulmonology office -A prescription for nebulizer solution will be sent to your preferred pharmacy on file -You will also be sent home with 4 more days of prednisone due to an exacerbation of your underlying COPD -It is recommended you establish with podiatry upon discharge. Please call their office to schedule an establish care appointment upon discharge. -Please call your primary care provider's office upon discharge to schedule a hospital follow up within 1 week. -For any concerning signs or symptoms please call 911 or proceed to the nearest emergency department Discharge Orders/Prescriptions Prescriptions: New metoprolol succinate 50 mg tablet extended release 24 hr 50 mg PO DAILY Qty: 30 0RF Rx Instructions: d/c metoprolol tartrate ipratropium-albuterol 0.5 mg-3 mg(2.5 mg base)/3 mL Solution For Nebulization 3 ml inhalation TID PRN (Reason: shortness of breath or wheezing) 30 Days Qty: 180 0RF prednisone 20 mg tablet 40 mg PO DAILY 4 Days Qty: 8 0RF Continued aspirin [Adult Low Dose Aspirin] 81 mg tablet,delayed release (DR/EC) 81 mg PO DAILY midodrine 5 mg tablet 5 mg PO DAILY Rx Instructions: do not give last dose of day after 6PM or within 4 hrs of bedtime Xarelto 10 mg tablet 10 mg PO DAILY atorvastatin 20 mg tablet 20 mg PO QPM albuterol sulfate 90 mcg/actuation HFA aerosol inhaler 1 inh inhalation Q6H PRN (Reason: shortness of breath or wheezing) Qty: 8.5 0RF calcium acetate(phosphat bind) 667 mg capsule 1,334 mg PO TIDCM Patient Comments: PT STATES THEY ARE ONLY TAKING ONE CAPSULE ONCE DAILY Flintstones Multivitamin Tablet,Chewable 1 tab PO DAILY Patient Comments: PT STATES THEY TAKE ONE CHILDRENS FLINTSTONES MULTIVITAMIN TABLET ONCE DAILY Discontinued pantoprazole 40 mg tablet,delayed release (DR/EC) 40 mg PO DAILY lisinopril 10 mg tablet 10 mg PO DAILY diltiazem HCl 120 mg capsule,extended release 24hr 120 mg PO DAILY Hold Instructions: Hold for 1 week until sees PCP metoprolol tartrate 25 mg tablet 50 mg PO BID Qty: 60 11RF lisinopril 30 mg tablet 30 mg PO DAILY potassium chloride 20 mEq tablet extended release 20 meq PO BID Patient Comments: PT STATES TAKES ONE TABLET ONCE DAILY metoprolol tartrate 100 mg tablet 50 mg PO DAILY Patient Comments: PT STATES THEY TAKE 1/2 (50MG) OF A 100MG TABLET ONCE DAILY Referrals / Follow Up: Ramona Khan DO [Primary Care Provider] - Within 1 Week Gabriel Guzman MD [Med Staff - Active Staff] - Within 1 Month ( -Please follow-up with pulmonology upon discharge. Please call their office to schedule hospital follow-up appointment upon discharge.) Mukund Escobedo DPM [Med Staff - Active Staff] - (It is recommended you establish with podiatry upon discharge. Please call their office to schedule an establish care appointment upon discharge.) Karin Whitehead NP, [employer] [Non-Staff -Ordering Privileges] - ( -Please follow-up with cardiology upon discharge. Please call their office to schedule hospital follow-up appointment upon discharge.) Disposition Disposition (needs filled in before D/C Order can be placed): Home, Self Care
--- NOTE | 2022-08-26 14:54 | DS.PCM_ITS ---
Providers Date of Admission: 08/25/22 Date of Discharge: 08/26/22 Primary Care Physician: Dr. Ramona Khan, DO Consultations 08/25/22 15:37 Consult: Cardiology Routine Consulting Provider: Fei Xiao Reason for Consult: bradycardia, abn rhythm EMERGENT Consult: No MD Notified: Yes Date Notified: 08/25/22 Time Notified: 14:45 Method of Notification: Verbal Consult: Timber Watchman / Pulmonary Medicine Routine Consulting Provider: Pulmonary Medicine [facility] Reason for Consult: Hyperkalemia, bradycardia, hx cardiac arrest w/ hyperk EMERGENT Consult: No MD Notified: Yes Date Notified: 08/25/22 Time Notified: 14:45 Method of Notification: Verbal Consult: Nephrology Routine Consulting Provider: Montserrat Rios Reason for Consult: hyperkalemia, CHF, osbaldo, needs HD EMERGENT Consult: No Notified: Yes Date Notified: 08/25/22 Time Notified: 14:44 Method of Notification: ED Physician Initiated Reason For Visit: ACUTE HYPOZIA, RESP FAILURE, CHF, ESRD Diagnosis Discharge Diagnosis (1) End stage renal disease: Status: Acute Code(s): N18.6 - End stage renal disease (2) Hyperkalemia, diminished renal excretion: Status: Acute Code(s): E87.5 - Hyperkalemia Plan #Hyperkalemia- resolved #Acute hypoxia with history of COPD?hypoxia resolved #Bradycardia/w history of a flutter?bradycardia resolved #Leukocytosis?resolved #Tobacco use Medications at Discharge Home Medications rivaroxaban 10 mg tablet (Xarelto) 10 mg PO DAILY 11/06/21 atorvastatin 20 mg tablet 20 mg PO QPM CHOLESTEROL 04/02/22 albuterol sulfate 90 mcg/actuation aerosol inhaler 1 inh inhalation Q6H PRN shor tness of breath or wheezing #8.5 grams 04/05/22 aspirin 81 mg tablet,delayed release (Adult Low Dose Aspirin) 81 mg PO DAILY HEART HEALTH 06/24/22 midodrine 5 mg tablet 5 mg PO DAILY 06/24/22 calcium acetate(phosphat bind) 667 mg capsule 1,334 mg PO TIDCM SUPPLEMENT 08/25/22 pediatric multivitamin (Flintstones Multivitamin chewable tablet) 1 tab PO DAILY 08/25/22 ipratropium 0.5 mg-albuterol 3 mg (2.5 mg base)/3 mL nebulization soln 3 ml inhalation TID PRN shortness of breath or wheezing 30 days #180 mL 08/26/22 metoprolol succinate 50 mg tablet,extended release 24 hr 50 mg PO DAILY #30 tabs 08/26/22 prednisone 20 mg tablet 40 mg (2 x 20 mg) PO DAILY 4 days #8 tabs 08/26/22 Hospital Course Procedures - (HD) Summary of Care Provided Minutes Spent on Discharge: 31 Hospital Course: JOHN SAHU, is a 66 M with end-stage renal disease on dialysis Thursday/Thursday/Thursday, COPD, a flutter, VTE, hypertension, tobacco use who presented to [facility] 08/25/2022 from dialysis due to increasing shortness of breath as well as nausea. He reports this has been going on off and on for a week. In the ED he was found to have heart rate from 30s to 50s but asymptomatic, chest x-ray with pulmonary congestion suggestive of fluid overload, potassium of 8.1, BUN 96, creatinine 7.24. Troponin 26. Hospitalist consulted for admission. He was dialyzed overnight and his potassium normalized and his heart rate improved and overall clinically he was doing much better. Evaluated by designated broker and supervisor shipping. Patient very anxious to go home and given he would not be able to be dialyzed here today with the holiday and has outpatient dialysis scheduled for tomorrow was deemed reasonable for discharge as he is clinically stable. Initially consulted cardiology due to the bradycardia, this resolved with the hypokalemia but he has had this multiple times and had a bradycardic arrest previously per report. Called cardiology and discussed case with head bookkeeper on-call, they advised to hold diltiazem and change metoprolol to succinate at 50 mg once daily and to follow-up in the office. On day of discharge patient reports he is feeling much better with no acute complaints and breathing improving. Discharge instructions as follows: DISCHARGE INSTRUCTIONS PLEASE READ *Please take this with you to your next doctors appointment* -Please continue dialysis upon discharge. Please continue your Thursday, Thursday, Thursday schedule. If you have any questions or problems with scheduling, please contact your supervisor shipping. Continue to follow with your supervisor shipping as previously schedule -Would recommend lab work (BMP) to check your potassium in 2 to 3 days through your primary care physician's office or nephrology office. Please call their office upon discharge to obtain order for lab work. -Due to your low heart rate when you came in and history of low heart rate when your potassium gets high, would recommend holding your diltiazem and continuing metoprolol. The metoprolol on your home medication list however is metoprolol tartrate, please discontinue metoprolol tartrate and begin metoprolol succinate 50 mg daily. This will be sent into preferred pharmacy on file. It is very important that you do not take both together -Please follow-up with your head bookkeeper upon discharge. Please call their office to schedule hospital follow-up appointment upon discharge. -Given your high potassium your lisinopril has been discontinued, this can be discussed with your prescribing physician in regards to risks and benefits of resuming this -I WILL BE VERY IMPORTANT THAT YOU DO NOT TAKE ANY POTASSIUM SUPPLEMENTATION ON DISCHARGE. ON YOUR HOME MEDICATION LIST INDICATES TO TAKE POTASSIUM 20 MG TWICE DAILY, PLEASE DISCONTINUE ALL POTASSIUM SUPPLEMENTATION -Additionally will be important that you adhere to your potassium binder that you are supposed to be taking on outpatient basis -Please follow-up with pulmonology upon discharge. Please call their office to schedule hospital follow-up appointment upon discharge. You will need pulmonary function test on an outpatient basis, this can be coordinated through the pulmonology office -A prescription for nebulizer solution will be sent to your preferred pharmacy on file -You will also be sent home with 4 more days of prednisone due to an exacerbation of your underlying COPD -It is recommended you establish with podiatry upon discharge. Please call their office to schedule an establish care appointment upon discharge. -Please call your primary care provider's office upon discharge to schedule a hospital follow up within 1 week. -For any concerning signs or symptoms please call 911 or proceed to the nearest emergency department Physical Exam Narrative General: Alert, oriented, no apparent distress HEENT: Atraumatic, normocephalic Eyes: Anicteric, eyes disconjugate, extraocular movements grossly intact Neck: Supple Respiratory: Wheezes and aeration improving Cardiovascular: Regular rate GI: Soft, nontender, nondistended Extremities: No edema Musculoskeletal: Moving all extremities Neuro: No overt focal neurological deficits Skin: Has some various scattered bruising and chronic skin changes Psych: Cooperative Weight / BMI Weight Weight: 100.3 kg Body Mass Index (BMI) 30.9 ABG / Lab / Microbiology Data 08/26/22 03:35 08/26/22 03:35 Laboratory: Laboratory Results - last 24 hr 08/25/22 16:07: POC Glucose 220 H 08/25/22 17:45: Sodium 131 L, Potassium 6.5 H*, Chloride 94 L, Carbon Dioxide 28.0, Anion Gap 9, BUN 100 H, Creatinine 7.57 H*, Estim Creat Clear Calc 9.91, Est GFR (MDRD) Af Amer 9 L, Est GFR (MDRD) Non-Af 8 L, BUN/Creatinine Ratio 13.2, Glucose 175 H, Calcium 8.5 08/25/22 19:55: Sodium 134 L, Potassium 5.8 H, Chloride 93 L, Carbon Dioxide 30.0, Anion Gap 11, BUN 94 H, Creatinine 7.02 H, Estim Creat Clear Calc 10.69, Est GFR (MDRD) Af Amer 10 L, Est GFR (MDRD) Non-Af 8 L, BUN/Creatinine Ratio 13.4, Glucose 180 H, Calcium 8.1 L 08/25/22 21:20: POC Glucose 125 H 08/26/22 00:00: Sodium 137, Potassium 4.0, Chloride 98, Carbon Dioxide 31.0, Anion Gap 8, BUN 64 H, Creatinine 4.85 H, Estim Creat Clear Calc 15.47, Est GFR (MDRD) Af Amer 16 L, Est GFR (MDRD) Non-Af 13 L, BUN/Creatinine Ratio 13.2, Glucose 189 H, Calcium 7.6 L 08/26/22 03:35: WBC 10.6, RBC 3.05 L, Hgb 9.9 L, Hct 31.2 L, MCV 102.3 H, MCH 32.5 H, MCHC 31.7 L, RDW Std Deviation 52.7 H, RDW Coeff of Mere 14.1, Plt Count 242, MPV 10.3, Immature Gran % (Auto) 0.400, Neut % (Auto) 72.5 H, Lymph % (Auto) 15.5 L, [place] % (Auto) 10.3 H, Eos % (Auto) 0.9, Baso % (Auto) 0.4, Absolute Neuts (auto) 7.7, Absolute Lymphs (auto) 1.65, Nucleated RBC % 0, Sodium 134 L, Potassium 4.6, Chloride 96 L, Carbon Dioxide 30.0, Anion Gap 8, BUN 69 H, Creatinine 5.64 H, Estim Creat Clear Calc 13.30, Est GFR (MDRD) Af Amer 13 L, Est GFR (MDRD) Non-Af 11 L, BUN/Creatinine Ratio 12.2, Glucose 97, Calcium 8.2 L, Phosphorus 8.4 H, Magnesium 2.6, TSH 0.62 08/26/22 08:10: POC Glucose 117 H 08/26/22 11:33: POC Glucose 136 H D/C Instructions Discharge Diet: Renal Diet Meaningful Use Info Meaningful Use Diagnoses (Choose all that apply): None applicable Discharge Plan Admission Admit Date/Time: 08/25/22 14:44 Primary Reason for Your Visit: SOB, hyperkalemia Attending Provider: Jeannette Long Primary Care Provider: Ramona Khan Consulting Providers: Fei Xiao; Montserrat Rios; Laith Monroe; Josias Denny; Gabriel Guzman; Jorge Ruiz; Camille Cook [employer] Instructions Patient Instructions: Hemodialysis, ED Hemodialysis, ED Hyperkalemia Additional Instructions / Restrictions: DISCHARGE INSTRUCTIONS PLEASE READ *Please take this with you to your next doctors appointment* -Please continue dialysis upon discharge. Please continue your Thursday, Thursday, Thursday schedule. If you have any questions or problems with scheduling, please contact your supervisor shipping. Continue to follow with your supervisor shipping as previously schedule -Would recommend lab work (BMP) to check your potassium in 2 to 3 days through your primary care physician's office or nephrology office. Please call their office upon discharge to obtain order for lab work. -Due to your low heart rate when you came in and history of low heart rate when your potassium gets high, would recommend holding your diltiazem and continuing metoprolol. The metoprolol on your home medication list however is metoprolol tartrate, please discontinue metoprolol tartrate and begin metoprolol succinate 50 mg daily. This will be sent into preferred pharmacy on file. It is very important that you do not take both together -Please follow-up with your head bookkeeper upon discharge. Please call their office to schedule hospital follow-up appointment upon discharge. -Given your high potassium your lisinopril has been discontinued, this can be discussed with your prescribing physician in regards to risks and benefits of resuming this -I WILL BE VERY IMPORTANT THAT YOU DO NOT TAKE ANY POTASSIUM SUPPLEMENTATION ON DISCHARGE. ON YOUR HOME MEDICATION LIST INDICATES TO TAKE POTASSIUM 20 MG TWICE DAILY, PLEASE DISCONTINUE ALL POTASSIUM SUPPLEMENTATION -Additionally will be important that you adhere to your potassium binder that you are supposed to be taking on outpatient basis -Please follow-up with pulmonology upon discharge. Please call their office to schedule hospital follow-up appointment upon discharge. You will need pulmonary function test on an outpatient basis, this can be coordinated through the pulmonology office -A prescription for nebulizer solution will be sent to your preferred pharmacy on file -You will also be sent home with 4 more days of prednisone due to an exacerbation of your underlying COPD -It is recommended you establish with podiatry upon discharge. Please call their office to schedule an establish care appointment upon discharge. -Please call your primary care provider's office upon discharge to schedule a hospital follow up within 1 week. -For any concerning signs or symptoms please call 911 or proceed to the nearest emergency department Discharge Orders/Prescriptions Prescriptions: New metoprolol succinate 50 mg tablet extended release 24 hr 50 mg PO DAILY Qty: 30 0RF Rx Instructions: d/c metoprolol tartrate ipratropium-albuterol 0.5 mg-3 mg(2.5 mg base)/3 mL Solution For Nebulization 3 ml inhalation TID PRN (Reason: shortness of breath or wheezing) 30 Days Qty: 180 0RF prednisone 20 mg tablet 40 mg PO DAILY 4 Days Qty: 8 0RF Continued aspirin [Adult Low Dose Aspirin] 81 mg tablet,delayed release (DR/EC) 81 mg PO DAILY midodrine 5 mg tablet 5 mg PO DAILY Rx Instructions: do not give last dose of day after 6PM or within 4 hrs of bedtime Xarelto 10 mg tablet 10 mg PO DAILY atorvastatin 20 mg tablet 20 mg PO QPM albuterol sulfate 90 mcg/actuation HFA aerosol inhaler 1 inh inhalation Q6H PRN (Reason: shortness of breath or wheezing) Qty: 8.5 0RF calcium acetate(phosphat bind) 667 mg capsule 1,334 mg PO TIDCM Patient Comments: PT STATES THEY ARE ONLY TAKING ONE CAPSULE ONCE DAILY Flintstones Multivitamin Tablet,Chewable 1 tab PO DAILY Patient Comments: PT STATES THEY TAKE ONE CHILDRENS FLINTSTONES MULTIVITAMIN TABLET ONCE DAILY Discontinued pantoprazole 40 mg tablet,delayed release (DR/EC) 40 mg PO DAILY lisinopril 10 mg tablet 10 mg PO DAILY diltiazem HCl 120 mg capsule,extended release 24hr 120 mg PO DAILY Hold Instructions: Hold for 1 week until sees PCP metoprolol tartrate 25 mg tablet 50 mg PO BID Qty: 60 11RF lisinopril 30 mg tablet 30 mg PO DAILY potassium chloride 20 mEq tablet extended release 20 meq PO BID Patient Comments: PT STATES TAKES ONE TABLET ONCE DAILY metoprolol tartrate 100 mg tablet 50 mg PO DAILY Patient Comments: PT STATES THEY TAKE 1/2 (50MG) OF A 100MG TABLET ONCE DAILY Referrals / Follow Up: Ramona Khan DO [Primary Care Provider] - Within 1 Week Gabriel Guzman MD [Med Staff - Active Staff] - Within 1 Month ( -Please follow-up with pulmonology upon discharge. Please call their office to schedule hospital follow-up appointment upon discharge.) Mukund Escobedo DPM [Med Staff - Active Staff] - (It is recommended you esta blish with podiatry upon discharge. Please call their office to schedule an establish care appointment upon discharge.) Karin Whitehead NP, [employer] [Non-Staff -Ordering Privileges] - ( -Please follow-up with cardiology upon discharge. Please call their office to schedule hospital follow-up appointment upon discharge.) Disposition Disposition (needs filled in before D/C Order can be placed): Home, Self Care Charges/Coding Visit Charges Inpatient E&M: 34703 Disch Hosp >30min
== END 2022-08-26 15:43 | disposition home or self-care (01) | DRG 682 ==
LOC: ED 13:54 → PCU 14:18 → ICU 14:45
PROVIDERS: Admitting Provider Internal Medicine; Emergency Provider Emergency Medicine; PCP Family Medicine; Visit Provider Internal Medicine
DX: I12.0 Hypertensive chronic kidney disease with stage 5 chronic kidney disease or end stage renal disease (principal); N18.6 End stage renal disease; I48.92 Unspecified atrial flutter; E87.1 Hypo-osmolality and hyponatremia; E83.39 Other disorders of phosphorus metabolism; Z86.74 Personal history of sudden cardiac arrest; J44.9 Chronic obstructive pulmonary disease, unspecified; Z99.2 Dependence on renal dialysis; E87.5 Hyperkalemia; E78.5 Hyperlipidemia, unspecified; F17.210 Nicotine dependence, cigarettes, uncomplicated; R09.02 Hypoxemia; E66.9 Obesity, unspecified; Z68.31 Body mass index [BMI] 31.0-31.9, adult; Z91.148 Patient's other noncompliance with medication regimen for other reason; Z79.01 Long term (current) use of anticoagulants; Z79.82 Long term (current) use of aspirin; Z79.899 Other long term (current) drug therapy; Z86.718 Personal history of other venous thrombosis and embolism; Z86.73 Personal history of transient ischemic attack (TIA), and cerebral infarction without residual deficits
CPT/HCPCS: 71045; 80048; 82962; 83735; 84100; 84443; 84484; 85025; 90937; 93005; 94002; 94003; 94640; 94660; 94762; 97161; 97165; 99252; 99285; J7030; A4216; G0257; G0463; J2405

== ENCOUNTER 2022-10-28 11:06 | Day surgery (SDC) | payer MEDICARE, MEDICAID, SELFPAY ==
[2022-10-24 06:54] VITALS: BMI 37.4
--- NOTE | 2022-10-28 11:53 | HP.PCM_ITS ---
History and Physical Date of Admission: 10/28/22 Visit Reasons: DECREASED ACCESS FLOW Chief Complaint: DECREASED ACCESS FLOW Allergies No Known Allergies Allergy (Verified 10/14/22 10:08) Medications albuterol sulfate 90 mcg/actuation aerosol inhaler 1 inh inhalation Q6H PRN shortness of breath or wheezing #8.5 grams 04/05/22 [Rx Confirmed 10/14/22] calcium acetate(phosphat bind) 667 mg capsule 1,334 mg PO TIDCM SUPPLEMENT 08/25/22 [History Confirmed 10/14/22] ipratropium 0.5 mg-albuterol 3 mg (2.5 mg base)/3 mL nebulization soln 3 ml inhalation TID PRN shortness of breath or wheezing 30 days #180 mL 08/26/22 [Rx Confirmed 10/14/22] aspirin 81 mg tablet,delayed release (Adult Low Dose Aspirin) 81 mg PO DAILY [facility] #90 tabs 08/29/22 [Rx Confirmed 10/14/22] atorvastatin 20 mg tablet 20 mg PO QPM CHOLESTEROL #90 tabs 08/29/22 [Rx Confirmed 10/14/22] rivaroxaban 10 mg tablet (Xarelto) 10 mg PO DAILY #90 tabs 08/29/22 [Rx Confirmed 10/14/22] metoprolol tartrate 50 mg tablet 50 mg PO BID 09/01/22 [History Confirmed 10/14/22] midodrine 5 mg tablet 10 mg PO DAILY 09/01/22 [History Confirmed 10/14/22] vitamin B complex-vitamin C-folic acid 0.8 mg tablet (Renal-Sathish) 1 tab PO DAILY 09/01/22 [History Confirmed 10/14/22] [facility] Medical History Atrial flutter Cardiomyopathy Chronic anemia Chronic hyponatremia COPD (chronic obstructive pulmonary disease) CVA (cerebral vascular accident) Diabetes 1.5, managed as type 2 Dyslipidemia ESRD (end stage renal disease) on dialysis Essential hypertension History of renal dialysis Hyperlipidemia Hypertension Nicotine dependence Sensory disorder Smoker Thromboembolism Walker as ambulation aid Surgical History History of ankle surgery Family History Mother Heart diseaseFather Heart disease Social History Smoking Status: Current every day smoker tobacco type: cigarettes alcohol intake: former substance use type: does not use caffeine: No HPI HPI Surgical H&P: Yes HPI: Patient is a 66 y/o M I am seeing for difficulty with cannulation of the left forearm fistula. Patient has a left upper extremity brachial cephalic AV fistula which was created on 03/14/[address] Lam. Patient has been utilizing the fistula as of 06/24/22. Patient has been requested to follow-up with our office following one treatment that dialysis was not able to be complete due to difficult accessing the fistula. Patient has never had a previous fistulogram. Since his last visit with our office he has not had any further hospitalizations. He is maintained on Xarelto. Patient dialyzes M, W and F. 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 ROS General General: No weight change, appetite, fatigue, colon cancer, breast cancer or weakness HEENT HEENT: No difficulty swallowing, eye injury, eye surgery, swollen glands or hoarseness Endo Endocrine: No thyroid disease, diabetes mellitus, thyroid cancer, Hair loss, heat intolerance or cold intolerance Skin Skin: No rash or changing moles Breast Breast: No left breast lump, right breast lump, nipple discharge, breast pain, abnormal mammogram, abnormal US or breast enlargement Musc Musculoskeletal: No back problems, arthritis, rheumatoid arthritis, gout or joint pain Cardio Cardiovascular: Yes high blood pressure; No murmur, pacemaker, heart disease, atrial fibrillation, heart attack, heart stent, palpitations, shortness of breat with exertion or chest pain Psych Psychiatric: No depression, anxiety or hearing voices Resp Respiratory: Yes shortness of breath, No sleep apnea, Yes cough, Yes COPD, No asthma, No emphysema and No wheezing Gastro Gastrointestinal: No abdominal pain, No nausea or vomiting, No diarrhea, No constipation, No blood in stool, No acid reflux, Yes hemorrhoids, No ulcers, No gallbladder problem and No black,tarry stools Aravind Hematologic: Yes blood thinners, No blood disorders, No bleeding, No anemia and No blood clots Additional Details: Eliquis Neuro Neurologic: No system reviewed and no additional complaints, except as documented, No as per HPI, No abnormal gait, No abnormal hearing, No abnormal movements, No abnormal speech, No behavioral changes, No burning sensations, No confusion, No convulsions, No disequilibrium, No dizziness, No localized weakness, No frequent falls, No headache(s), No lack of coordination, No loss of vision, No memory loss, No numbness, No other visual disturbances, No radicular pain, No restless legs, No sensory deficit, No syncope, No tingling, No tremor(s), No weakness and No other Exam Const General: cooperative, healthy appearing, comfortable and no acute distress [facility] Head: normal to inspection Eyes General: appearance normal, both eyes and all related structures Neck Neck: normal visual inspection Neck mass: No Resp Effort & Inspection: normal respiratory effort Auscultation: clear to auscultation bilaterally Cardio Rate: tachycardic GI Inspection: normal to inspection Palpation: soft Skin General: no rashes or lesions noted Neuro General: no focal motor deficits and CN's II-XI intact bilaterally Extrem General: normal to inspection Other: Left upper extremity AV fistula- pulse, bruit and thrill are diminished. Psych Appearance: grossly normal Affect: normal affect Assessment and Plan Assessment and Plan (1) Problem with dialysis access: Status: Acute Qualifiers: Encounter type: initial encounter Qualified Code(s): T82.898A - Other specified complication of vascular prosthetic devices, implants and grafts, initial encounter Plan: Dr. Lam will plan to perform a non-urgent left upper extremity fistulogram. Procedure details, risks and benefits have been explained. Patient's niece is present in the room. Patient will hold his Xarelto for 3 days. He may continue his aspirin. Patient will need to take the hospital transportation for the procedure, which has already been arranged for the procedure day. Patient has had the opportunity to ask and have questions answered. Patient verbally understands and agrees with the plan. He has been scheduled for 11/[address] Lam I have examined the patient and the H&P has been reviewed. There are no clinical changes since date of exam. Sachin Lam M.D., F.A.C.S.
[2022-10-28 12:09] LABS: Absolute Lymphocyte Count 1.39 X10^3/uL (0.83-4.51); Absolute Neutrophil Count 6.7 X10^3/uL (2.0-7.7); Basophil# 0.03 X10^3/uL; Basophil% 0.3 % (0-1); Eosinophil# 0.04 X10^3/uL; Eosinophils% 0.4 % (0-5); Hematocrit 33.6 % (40-54); Hemoglobin 10.7 g/dL (13.0-16.5); Lymphocyte # 1.39 X10^3/ul (0.83-4.51); Mean Corp Hgb Conc 31.8 g/dL (32-36); Mean Corpuscular Hgb 32.4 pg (27.0-32.0); Mean Corpuscular Volume 101.8 fL (80-94); Mean Platelet Vol. 10.6 fl (6.2-12.0); Monocyte# 1.06 X10^3/uL; Monocyte% 11.4 % (0-10); NRBC Flagged by Analyzer 0 % (0-5); Neutrophil % 72.1 % (47-70); Platelet Count 276 K/mm3 (150-450); RBC Distribution Width SD 55.4 fl (35.1-43.9); White Blood Count 9.3 K/mm3 (4.4-11.0)
[2022-10-28 12:20] LABS: Anion Gap 10 (5-15); BUN 44 mg/dL (7-18); BUN/Creat Ratio 8.4 RATIO (10-20); Calcium,Total 9.2 mg/dL (8.5-10.1); Chloride 94 mmol/L (98-107); Creatinine, Serum 5.25 mg/dL (0.70-1.30); EST Glomerular Filtration Rate 12 mL/min (>60); Est Glom Filt Rate - Afr Amer 14 mL/min (>60); Estimated Creatinine Clearance 14.29 ml/min; Glucose 145 mg/dL (74-106); Potassium 4.4 mmol/L (3.5-5.1); Sodium Level 135 mmol/L (136-145)
--- NOTE | 2022-10-28 12:48 | PCM.OPRPT ---
Report of Operation Date of Procedure: 10/28/22 Pre-Operative Diagnosis: Diminished flow left upper extremity brachial cephalic arteriovenous hemodialysis fistula Post-Operative Diagnosis: Proximal and mid venous stenosis left upper extremity brachial cephalic arteriovenous hemodialysis fistula Surgery/Procedure Performed:: Left upper extremity fistulogram with 6 x 40 mm conquest angioplasty and 8 x 40 mm conquest angioplasty Description of Surgical Findings:: Timeout informed consent was obtained. 66-year-old gentleman was taken to the special procedures lab placed on the table. He declined sedative. Ultrasound was performed after the left extremity was sterilely prepped and draped. I elected to get retrograde access. In the more proximal third of the left upper arm using ultrasound I identified the cephalic vein and injected 2% lidocaine throughout the procedure a total of 4 cc was used micropuncture needle was inserted retrograde flow micropuncture wire 6 Georgian short sheath dilator then using a angled Glidewire and a 4 Georgian glide cath to gain access to the brachial artery proximal to the anastomosis. Using Isovue contrast hand-injection a fistulogram was obtained this demonstrated a 2 cm area of stenosis with in the proximal portion of the fistula although the arterial anastomosis was widely patent and the first centimeter and 1/2 to 2 cm the vein was widely patent. I then placed a Glidewire placed initially a 6 x 40 mm conquest balloon perform balloon angioplasty for 2 minutes. Follow-up fistulogram demonstrated improvement however the [place] vein still was larger than the treated area so I then placed an 8 x 40 mm balloon and performed conquest angioplasty for another 2 minutes. Completion study at that site demonstrated resolution. I obtained more proximal outflow demonstrating good central venous outflow there was an area in the mid forearm of about 50% stenosis I elected to treat. So then I got antegrade flow closer to the antecubital space injected 2% lidocaine dissected micropuncture needle micropuncture wire 6 Georgian short sheath dilator and then I placed a 6 x 40 mm conquest balloon and performed balloon angioplasty of the mid fistula. Both balloons had been taken up to 30 tomer of pressure for each procedure. A completion study was obtained demonstrate complete resolution of that area of approximately 2 cm stenosis. The fistula now had an absolutely wonderful pulse and thrill. Sheath removed few sutures of 4-0 nylon was placed no apparent complication of blood loss was minimal Fistulogram demonstrates a left extremity brachial cephalic arteriovenous hemodialysis fistula with a higher grade 80 to 90% stenosis of the more proximal portion of the fistula albeit just distal to the widely patent anastomosis. There is resolution status post 6 x 40-minute: Conquest angioplasty followed up by 8 x 40 mm conquest angioplasty. With the antegrade access I treated the mid fistula with a 6 x 40 mm conquest and again there was complete resolution. Adequate central venous outflow. No apparent complication. The patient was taken to recovery area in satisfactory addition. Sachin Lam M.D., F.A.C.S. Surgeon: Sachin Lam Type of Anesthesia: Local
== END 2022-10-28 13:45 | disposition home or self-care (01) ==
PROVIDERS: PCP Family Medicine; Referring Provider Surgery; Visit Provider Surgery
DX: T82.898A Other specified complication of vascular prosthetic devices, implants and grafts, initial encounter (principal); Z99.2 Dependence on renal dialysis; J44.9 Chronic obstructive pulmonary disease, unspecified; I42.9 Cardiomyopathy, unspecified; N18.6 End stage renal disease; I12.0 Hypertensive chronic kidney disease with stage 5 chronic kidney disease or end stage renal disease; F17.210 Nicotine dependence, cigarettes, uncomplicated; E78.5 Hyperlipidemia, unspecified; Z79.82 Long term (current) use of aspirin; Z79.899 Other long term (current) drug therapy; Z79.01 Long term (current) use of anticoagulants; Z86.73 Personal history of transient ischemic attack (TIA), and cerebral infarction without residual deficits; X58.XXXA Exposure to other specified factors, initial encounter
CPT/HCPCS: 36415; 36902; 76937; 80048; 85025; Q9967; C1725; C1769

== ENCOUNTER 2023-10-21 17:14 | Emergency (ER) | payer MEDICARE, SELFPAY ==
[2023-10-21 17:14] VITALS: BP 115/65; PULSE 128; RESP 20; O2SAT 92
[2023-10-21 17:15] VITALS: BP 98/82; PULSE 110; RESP 18; TEMP 37.2; O2SAT 93; BMI 31.1
--- NOTE | 2023-10-21 17:51 | ED.VIS.LOWEX ---
HPI History of Present Illness HPI Narrative: Patient presents with right knee pain that began after a fall today. Patient states he came home from dialysis and tripped. Patient states he fell forward and landed on his right knee. Patient was unable to ambulate after the fall. Patient denies any head injury or loss of consciousness. Patient describes his pain as sharp. Patient states his pain is worse with any movement. Patient denies any paresthesias. Patient states he has difficulty lifting his lower leg due to the pain. Chief Complaint: Lower Extremity Injury Informant: patient Occured/Mechanism Mechanism/Context: Yes fall Onset/Context/Timing Onset: Today Context: Sudden Onset Timing: Continuous Quality of Pain: Sharp Location: Right knee Worsened by: Movement Relieved by: Nothing Associated Symptoms Associated Symptoms: Negative for Parasthesia PFSH [facility] Medical History Chronic hyponatremia ESRD (end stage renal disease) on dialysis Chronic anemia Cardiomyopathy Dyslipidemia Nicotine dependence Walker as ambulation aid History of renal dialysis Smoker Hypertension Atrial flutter Diabetes 1.5, managed as type 2 Thromboembolism Sensory disorder Hyperlipidemia Essential hypertension COPD (chronic obstructive pulmonary disease) CVA (cerebral vascular accident) Home Medications ?Medication ?Instructions ?Recorded ?Last Taken ?Type albuterol sulfate 90 mcg/actuation 1 inh inhalation Q6H PRN shortness 04/05/22 Unknown Rx aerosol inhaler of breath or wheezing #8.5 grams calcium acetate(phosphat bind) 667 1,334 mg PO TIDCM SUPPLEMENT 08/25/22 08/25/22 History mg capsule ipratropium 0.5 mg-albuterol 3 mg 3 ml inhalation TID PRN shortness 08/26/22 Unknown Rx (2.5 mg base)/3 mL nebulization of breath or wheezing 30 days #180 soln mL metoprolol tartrate 50 mg tablet 50 mg PO BID Use [facility] 09/01/22 Unknown History only: they prepackage his med midodrine 5 mg tablet 10 mg PO DAILY Use [facility] 09/01/22 Unknown History Pharmacy Only, they Prepack his meds vitamin B complex-vitamin C-folic 1 tab PO DAILY 09/01/22 Unknown History acid 0.8 mg tablet (Renal-Sathish) aspirin 81 mg tablet,delayed 81 mg PO DAILY [facility] #90 07/14/23 Unknown Rx release (Adult Low Dose Aspirin) tabs atorvastatin 20 mg tablet 20 mg PO QPM Please use [facility] 07/14/23 Unknown Rx Pharmacy only, they prepackage #30 tabs rivaroxaban 10 mg tablet (Xarelto) 10 mg PO DAILY Please use 30 day 08/14/23 Unknown Rx RX to [facility] : prepackaging #30 tabs Allergy/AdvReac Type Severity Reaction Status Date / Time No Known Allergies Allergy Verified 10/14/22 10:08 Family History Mother Heart disease Father Heart disease Surgical History History of ankle surgery Social History Smoking Status: Current every day smoker tobacco type: cigarettes alcohol intake: former substance use type: does not use caffeine: No ROS ROS ED Constitutional Constitutional ED: Denies chills or fever(s) Eyes Eyes: Denies blurry vision or change in vision ENT ENT ED: Denies rhinorrhea or sore throat Cardiovascular Cardiovascular: Denies chest pain or palpitations Respiratory/Chest Respiratory/Chest: Denies cough or dyspnea Gastrointestinal Gastrointestinal: Denies nausea or vomiting Genitourinary Genitourinary ED: Denies dysuria or hematuria Musculoskeletal Musculoskeletal: Denies back pain or neck pain Integumentary Denies abscess or rash Neurologic Neurologic: Denies headache(s) or weakness Allergic/Immunologic Allergic/Immunologic ED: Denies mouth swelling or urticaria EXAM Physical Exam Const Vital Signs: 10/21/23 17:14 10/21/23 17:15 10/21/23 19:14 Temperature 99 F Temperature Source Axillary Pulse Rate 128 H 110 H 125 H Respiratory Rate 20 H 18 16 Blood Pressure 115/65 98/82 H 145/85 H Blood Pressure Mean 81 87 105 Pulse Ox 92 93 96 Oxygen Delivery Method Room Air Room Air Room Air 10/21/23 21:00 Temperature Temperature Source Pulse Rate 128 H Respiratory Rate 18 Blood Pressure 104/78 Blood Pressure Mean 86 Pulse Ox 94 Oxygen Delivery Method Positive well nourished and well developed General Appearance ED: well developed and NAD HEENT Reports moist mucous membranes Neck full ROM Extremity Extremity Narrative: There is tenderness over the anterior aspect of the right knee over the patella tendon. There is a step-off noted over the patella tendon area. There is no joint effusion noted. Range of motion was limited in all motions of the right knee secondary to pain. Patient was unable to extend his knee off of the bed. Pedal pulses are equal bilaterally. Sensation was intact to light touch in all digits. Capillary refill was less than 2 seconds in all digits. Neuro oriented x3, CN's II-XII intact bilaterally, moves all extremities and no sensory deficits noted Sensorium / Orientation: alert Motor Exam: strength 5/5 throughout Psych mental status grossly normal MDM MDM MDM Narrative Medical decision making narrative: Differential diagnosis includes patella tendon rupture, patella fracture, contusion, and sprain. X-rays of the right knee will be obtained to assess for fracture. Radiography Diagnostic Testing: Clinical Impression(s) from Imaging Studies Knee X-Ray 10/21/23 18:15 IMPRESSION: Oblique fracture through the proximal tibial shaft. There is also a fracture of the proximal fibula. Electronically Signed: Anthony Villalobos MD at 18:42 EDT , X-rays of the right knee were obtained. There are 3 views. On my independent interpretation, there is a fracture through the proximal tibia and also a fracture of the proximal fibula. There is minimal displacement. Radiologist also interpreted the x-rays and agrees. Treatment and Re-Evaluation Narrative: Patient was given injection of morphine. Patient was placed in a knee immobilizer. Since there is no orthopedic surgeon on-call here, the patient will need to be transferred. Initially, patient requested to go to [facility]. I discussed the case with orthopedics there. He stated that the patient has too many medical comorbidities to be cared for at [facility] and recommended [facility]. Case was discussed with the transfer line there. Patient was accepted to [facility]. Patient will be transferred there. Patient was placed in a knee immobilizer. Patient understands and is agreeable with the plan. All questions were answered. Discharge Plan Triage Chief Complaint: Lower Extremity Injury ED Provider: Adryan Guerin Dx/Rx/DC Orders Clinical Impression: Closed fracture of right tibia and fibula, Hemodialysis patient, ESRD (end stage renal disease) on dialysis, Fall Prescriptions: No Action metoprolol tartrate 50 mg tablet 50 mg PO BID midodrine 5 mg tablet 10 mg PO DAILY Rx Instructions: do not give last dose of day after 6PM or within 4 hrs of bedtime Renal-Sathish 0.8 mg tablet 1 tab PO DAILY albuterol sulfate 90 mcg/actuation HFA aerosol inhaler 1 inh inhalation Q6H PRN (Reason: shortness of breath or wheezing) Qty: 8.5 0RF calcium acetate(phosphat bind) 667 mg capsule 1,334 mg PO TIDCM Patient Comments: PT STATES THEY ARE ONLY TAKING ONE CAPSULE ONCE DAILY ipratropium-albuterol 0.5 mg-3 mg(2.5 mg base)/3 mL Solution For Nebulization 3 ml inhalation TID PRN (Reason: shortness of breath or wheezing) 30 Days Qty: 180 0RF aspirin [Adult Low Dose Aspirin] 81 mg tablet,delayed release (DR/EC) 81 mg PO DAILY Qty: 90 3RF atorvastatin 20 mg tablet 20 mg PO QPM Qty: 30 11RF Xarelto 10 mg tablet 10 mg PO DAILY Qty: 30 11RF Primary Care Provider: Ramona Khan Referrals: Ramona Khan DO [Primary Care Provider] - Print Language: Persian Disposition Disposition: Acute Care Hospital Discharge Location: [facility]
--- NOTE | 2023-10-21 18:15 | RAD_ITS ---
EXAM: XR RIGHT KNEE, 3 VIEWS CLINICAL INDICATION: Injury/Pain TECHNIQUE: Three views of the right knee. COMPARISON: No relevant prior studies available. FINDINGS: BONES/JOINTS: There is a fracture of the proximal tibia and fibula. Of the joint space is maintained. No sclerotic or destructive changes observed. SOFT TISSUES: Unremarkable. No soft tissue swelling or gas. No radiopaque foreign body. RAD/Knee 3 Views IMPRESSION: Oblique fracture through the proximal tibial shaft. There is also a fracture of the proximal fibula. Electronically Signed: Anthony Villalobos MD at 18:42 EDT ,
[2023-10-21] MEDS: Morphine 4 MG/ML Syringe IV ×2 (18:34→23:18)
[2023-10-21 19:14] VITALS: BP 145/85; PULSE 125; RESP 16; O2SAT 96
[2023-10-21 21:00] VITALS: BP 104/78; PULSE 128; RESP 18; O2SAT 94
[2023-10-21 23:00] VITALS: BP 160/94; PULSE 124; RESP 12; TEMP 36.8; O2SAT 97
--- NOTE | 2023-10-22 | ED.RN ---
Pt refused knee immobilizer and said you would have to sedate me to straighten this knee out
[2023-10-22 00:38] VITALS: BP 160/95; PULSE 120; RESP 15; TEMP 36.5; O2SAT 94
[2023-10-22 00:53] VITALS: BP 160/90; PULSE 120; RESP 16; TEMP 36.5; O2SAT 96
[2023-10-22] MEDS: Morphine 4 MG/ML Syringe IV ×3 (02:02→07:05)
[2023-10-22 02:48] VITALS: PULSE 124; RESP 20; O2SAT 96
[2023-10-22 05:00] VITALS: BP 148/85; PULSE 126; RESP 21; O2SAT 97
== END 2023-10-22 07:11 | disposition short-term general hospital (02) ==
PROVIDERS: Emergency Provider Emergency Medicine; PCP Family Medicine; Visit Provider Emergency Medicine
DX: S82.231A Displaced oblique fracture of shaft of right tibia, initial encounter for closed fracture (principal); N18.6 End stage renal disease; I12.0 Hypertensive chronic kidney disease with stage 5 chronic kidney disease or end stage renal disease; J44.9 Chronic obstructive pulmonary disease, unspecified; S82.831A Other fracture of upper and lower end of right fibula, initial encounter for closed fracture; W01.0XXA Fall on same level from slipping, tripping and stumbling without subsequent striking against object, initial encounter; Y93.01 Activity, walking, marching and hiking; Y99.8 Other external cause status; Z99.2 Dependence on renal dialysis; Y92.009 Unspecified place in unspecified non-institutional (private) residence as the place of occurrence of the external cause; F17.210 Nicotine dependence, cigarettes, uncomplicated; Z79.82 Long term (current) use of aspirin; Z79.899 Other long term (current) drug therapy
CPT/HCPCS: 73562; 96374; 96376; 99284; A4216